=== PATIENT | female | born 1970 | race Hispanic/Latino ===

== ENCOUNTER 2018-03-07 22:46 | Emergency (ER) | payer SELFPAY ==
[2018-03-07] MEDS ORDERED: ONDANSETRON 4 MG/2 ML VIAL ONE (23:18)
[2018-03-07] MEDS ORDERED: NA CHLORIDE 0.9% 1,000 ML ONE (23:18)
[2018-03-07 23:35] LABS: Absolute Lymphocytes (CBC) 1.7 K/uL (0.7-4.9); Absolute Monocytes 0.7 K/uL (0.1-1.3); Absolute Neutrophil 5.7 K/uL (1.8-8.0); Eosinophils % 1.6 % (0-4.4); Hematocrit 38.7 % (36.0-45.0); Lymphocytes % 19.9 % (15.3-44.8); MCH 28.5 pg (27.0-35.0); MCV 84.4 fL (80-100); MPV 9.6 fL (7.6-11.3); Monocytes % 8.9 % (3.3-12.3); RBC Red Blood Cell Count 4.58 M/uL (3.86-4.86)
[2018-03-07 23:38] LABS: Protime INR 0.97
[2018-03-07 23:39] LABS: Bicarbonate 25 mEq/L (21-31); Glucose Level 140 mg/dL (65-120); Potassium 3.5 mEq/L (3.6-5.0); Sodium Level 136 mEq/L (135-145)
[2018-03-07 23:46] LABS: ALT/SGPT 21 IU/L (10-60); AST/SGOT 17 IU/L (10-42); Albumin 3.8 g/dL (3.2-5.5); Alkaline Phosphatase 65 IU/L (42-121); BUN Blood Urea Nitrogen 13 mg/dL (6-20); Bilirubin Direct < 0.1 mg/dL (0-0.2); Bilirubin Total 0.2 mg/dL (0.3-1.2); Protein, Total 7.3 g/dL (6.0-8.3)
[2018-03-08] MEDS ORDERED: ASPIRIN 81 MG CHEWABLE TABLET ONE (00:16)
--- NOTE | 2018-03-08 00:25 | EDPHYS ---
Physician Documentation [facility] Name: Juju Orozco Age: 47 yrs Sex: Female : 1970 Arrival Date: 03/07/2018 Time: 22:47 Bed 14 Private MD: Sergio Cameron ED Physician Fredy Castro HPI: 03/07 23:02 This 47 yrs old Female presents to ER via Ambulatory with complaints of cp Nausea, High Blood Pressure. 23:02 The patient presents to the emergency department with nausea, that is moderate. Onset: cp The symptoms/episode began/occurred today. Possible causes: elevated blood pressure. Associated signs and symptoms: Pertinent positives: pressure in back of head. Severity of symptoms: in the emergency department the symptoms have improved mildly. 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 - Social history:: Smoking status: Patient/guardian denies using tobacco. - Ebola Screening: : No symptoms or risks identified at this time. ROS: 23:05 Constitutional: Negative for body aches, chills, fever, poor PO intake. cp 23:05 Eyes: Negative for injury, pain, redness, and discharge. cp 23:05 Eyes: Negative for pain, redness, visual disturbance. cp 23:05 ENT: Negative for drainage from ear(s), ear pain, sore throat, difficulty swallowing, cp difficulty handling secretions. 23:05 Cardiovascular: Negative for chest pain, edema, palpitations. 23:05 Respiratory: Negative for cough, shortness of breath, wheezing. 23:05 Abdomen/GI: Negative for abdominal pain, nausea, vomiting, and diarrhea. 23:05 Back: Negative for pain at rest, pain with movement, radiated pain. 23:05 : Negative for urinary symptoms. 23:05 Neuro: Positive for dizziness, headache, Negative for altered mental status, syncope, near syncope, weakness. 23:05 All other systems are negative. Exam: 23:10 Constitutional: The patient appears in no acute distress, alert, non-diaphoretic, cp non-toxic, well developed, well nourished. 23:10 Head/Face: Normocephalic, atraumatic. Eyes: Pupils equal round and reactive to light, cp extra-ocular motions intact. Lids and lashes normal. Conjunctiva and sclera are non-icteric and not injected. Cornea within normal limits. Periorbital areas with no swelling, redness, or edema. ENT: Nares patent. No nasal discharge, no septal abnormalities noted. Tympanic membranes are normal and external auditory canals are clear. Oropharynx with no redness, swelling, or masses, exudates, or evidence of obstruction, uvula midline. Mucous membranes moist. Neck: Trachea midline, no thyromegaly or masses palpated, and no cervical lymphadenopathy. Supple, full range of motion without nuchal rigidity, or vertebral point tenderness. No Meningismus. Chest/axilla: Normal chest wall appearance and motion. Nontender with no deformity. No lesions are appreciated. 23:10 Cardiovascular: Rate: normal, Rhythm: regular, Pulses: Pulses are 2+ in right radial artery and left radial artery. Heart sounds: murmur, not appreciated, rub, not appreciated, gallop, not appreciated, Edema: is not appreciated, JVD: is not appreciated. 23:10 Respiratory: the patient does not display signs of respiratory distress, Respirations: normal, no use of accessory muscles, no retractions, no splinting, no tachypnea, labored breathing, is not present, Breath sounds: are clear throughout, no decreased breath sounds, no stridor, no wheezing. 23:10 Abdomen/GI: Inspection: abdomen appears normal, Bowel sounds: active, all quadrants, Palpation: abdomen is soft and non-tender, in all quadrants, rebound tenderness, is not appreciated, voluntary guarding, is not appreciated, involuntary guarding, is not appreciated. 23:10 Back: pain, is absent, ROM is normal. 23:10 Musculoskeletal/extremity: Exam is negative for bony tenderness, calf tenderness, edema, injury. 23:10 Skin: cellulitis, is not appreciated, no rash present. 23:10 Neuro: Orientation: to person, place \T\ time. Mentation: lucid, able to follow commands, Cerebellar function: Romberg testing is negative, normal finger to nose testing, Motor: moves all fours, strength is normal, Sensation: is normal. Vital Signs: 22:53 BP 181 / 89; Pulse 86; Resp 20; Temp 98.7(O); Pulse Ox 100% ; Weight 106.59 kg (R); ak1 Height 5 ft. 5 in. (165.10 cm) (R); Pain 0/10; 22:59 BP 176 / 93; bs1 23:15 BP 152 / 98; Pulse 73; Resp 14; Pulse Ox 99% on R/A; bs1 03/08 00:15 BP 146 / 86; Pulse 69; Resp 16 S; Temp 97.9(O); Pulse Ox 99% on R/A; Pain 0/10; bs1 00:39 BP 125 / 70; Pulse 66; Resp 18 S; Pulse Ox 99% on R/A; Pain 0/10; bs1 03/07 22:53 Body Mass Index 39.11 (106.59 kg, 165.10 cm) ak1 MDM: 03/07 22:50 Patient medically screened. cp 03/08 00:00 Differential diagnosis: CVA, migraine, vertigo, electrolyte abnormality. cp 00:22 Data reviewed: vital signs, nurses notes, lab test result(s), radiologic studies, CT cp scan, and as a result, I will discharge patient. Counseling: I had a detailed discussion with the patient and/or guardian regarding: the historical points, exam findings, and any diagnostic results supporting the discharge/admit diagnosis, the presence of at least one elevated blood pressure reading (>120/80) during this emergency department visit, lab results, radiology results, the need for outpatient follow up, a family practitioner, to return to the emergency department if symptoms worsen or persist or if there are any questions or concerns that arise at home. Response to treatment: the patient's symptoms have markedly improved after treatment, VSS. Patient reports nausea and headache markedly improved. Will discharge to home for continued monitoring. 03/07 23:04 Order name: Basic Metabolic Panel; Complete Time: 23:47 cp 03/07 23:47 Interpretation: Normal except: K 3.5; GLUC 140; GFR 63. cp 03/07 23:04 Order name: CBC with Diff; Complete Time: 23:47 cp /18 23:04 Order name: LFT's; Complete Time: 23:47 cp 03/07 23:04 Order name: PT-INR; Complete Time: 23:47 cp 03/07 23:04 Order name: Ptt, Activated; Complete Time: 23:47 cp 03/07 23:49 Order name: Urine Dipstick--Ancillary (enter results); Complete Time: 00:28 [facility] 03/08 00:28 Interpretation: Normal except: UBLD 1+. cp /18 23:04 Order name: CT Head Brain wo Cont cp / 23:04 Order name: Urine Test (obtain specimen); Complete Time: 23:48 cp 03/07 23:04 Order name: Cardiac monitoring; Complete Time: 23:49 cp 03/07 23:04 Order name: IV Saline Lock; Complete Time: 23:49 cp 03/07 23:49 Order name: Urine --Ancillary (enter results); Complete Time: 00:28 [facility] 03/08 00:28 Interpretation: Reviewed. cp 03/07 23:04 Order name: Labs collected and sent; Complete Time: 23:49 cp 03/07 23:04 Order name: O2 Per Protocol; Complete Time: 23:49 cp 03/07 23:04 Order name: O2 Sat Monitoring; Complete Time: 23:49 cp 03/07 23:04 Order name: Urine Dipstick-Ancillary (obtain specimen); Complete Time: 23:49 cp 03/08 00:11 Order name: PO challenge; Complete Time: 00:18 cp Administered Medications: 03/07 23:47 Drug: NS 0.9% 1000 ml Route: IV; Rate: 1 bolus; Site: right antecubital; bs1 03/08 00:41 Follow up: IV Status: Completed infusion bs1 03/07 23:47 Drug: Zofran 4 mg Route: IVP; Site: right antecubital; bs1 03/08 00:41 Follow up: Response: No adverse reaction bs1 00:18 Not Given (Patient took 2 baby aspirins at 2100 last night. Informed PA, verbal order bs1 not to give): Aspirin Chewable Tablet 81 mg PO once Disposition: 03/08/18 00:24 Discharged to Home. Impression: Hypertensive heart disease, Headache. - Condition is Stable. - Discharge Instructions: General Headache Without Cause, Hypertension, How to Take Your Blood Pressure, Dann-os-Gfsz, Managing Your High Blood Pressure. - Medication Reconciliation Form, Thank You Letter, Antibiotic Education, Prescription Opioid Use form. - Follow up: Sergio Cameron MD; When: 1 - 2 days; Reason: Recheck today's complaints. - Problem is an acute exacerbation. - Symptoms have improved. Addendum: 03/09/2018 07:58 Co-signature as Attending Physician, Fredy Castro MD Available for consultation at p s1 all times.. Signatures: Dispatcher [employer] EDMS Diane Lange RN RN ak1 Oni Mann PA PA cp Singer, Phillip, MD MD ps1 Haleigh Worthy RN RN bs1 Corrections: (The following items were deleted from the chart) 03/08 00:42 00:24 03/08/2018 00:24 Discharged to Home. Impression: Hypertensive heart disease; bs1 Headache. Condition is Stable. Forms are Medication Reconciliation Form, Thank You Letter, Antibiotic Education, Prescription Opioid Use. Follow up: Sergio Cameron; When: 1 - 2 days; Reason: Recheck today's complaints. Problem is an acute exacerbation. Symptoms have improved. cp
--- NOTE | 2018-03-08 00:25 | ER ---
Nurse's Notes [facility] Name: Juju Orozco Age: 47 yrs Sex: Female : 1970 Arrival Date: 03/07/2018 Time: 22:47 Bed 14 Private MD: Sergio Cameron Diagnosis: Hypertensive heart disease;Headache Presentation: 03/07 22:54 Presenting complaint: Patient states: nausea and increased blood pressure X1 hours. pt ak1 took 0.1mg clondine at 2200. Transition of care: patient was not received from another setting of care. Onset of symptoms was March 07, 2018. Risk Assessment: Do you want to hurt yourself or someone else? Patient reports no desire to harm self or others. Initial Sepsis Screen: Does the patient meet any 2 criteria? No. Patient's initial sepsis screen is negative. Does the patient have a suspected source of infection? No. Patient's initial sepsis screen is negative. Care prior to arrival: None. 22:54 Method Of Arrival: Ambulatory ak1 22:54 Acuity: TARIK 3 ak1 Triage Assessment: 22:56 General: Appears uncomfortable, Behavior is calm, cooperative. Pain: Denies pain. 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 - Social history:: Smoking status: Patient/guardian denies using tobacco. - Ebola Screening: : No symptoms or risks identified at this time. Screenin:56 Abuse screen: Denies threats or abuse. Denies injuries from another. Nutritional ak1 screening: No deficits noted. Tuberculosis screening: No symptoms or risk factors identified. Fall Risk None identified. Assessment: 23:00 General: Appears in no apparent distress. uncomfortable, Behavior is calm, cooperative, bs1 appropriate for age. Pain: Denies pain. Neuro: Level of Consciousness is awake, alert, obeys commands, Oriented to person, place, time, situation, Appropriate for age Microcomputer Technician are equal bilaterally Reports dizziness, headache weakness Denies blurred vision difficulty swallowing, numbness. Cardiovascular: Denies chest pain, palpitations, shortness of breath, Heart tones S1 S2 present Capillary refill < 3 seconds Patient's skin is warm and dry. Respiratory: Airway is patent Trachea midline Respiratory effort is even, unlabored, Respiratory pattern is regular, symmetrical, Breath sounds are clear bilaterally. GI: Abdomen is round non-distended, Bowel sounds present X 4 quads. Abd is non tender X 4 quads Reports nausea. : No signs and/or symptoms were reported regarding the genitourinary system. EENT: No signs and/or symptoms were reported regarding the EENT system. Derm: Skin is intact, Skin is pink, warm \T\ dry. normal. Musculoskeletal: Circulation, motion, and sensation intact. Capillary refill < 3 seconds, Range of motion: intact in all extremities. 03/08 00:18 Reassessment: Gave patient 1 cup water. PO challenge tolerated. bs1 00:40 Reassessment: Patient appears in no apparent distress at this time. Patient and/or bs1 family updated on plan of care and expected duration. Pain level reassessed. Patient is alert, oriented x 3, equal unlabored respirations, skin warm/dry/pink. Patient states feeling better. Patient states symptoms have improved. Vital Signs: 03/07 22:53 BP 181 / 89; Pulse 86; Resp 20; Temp 98.7(O); Pulse Ox 100% ; Weight 106.59 kg (R); ak1 Height 5 ft. 5 in. (165.10 cm) (R); Pain 0/10; 22:59 BP 176 / 93; bs1 23:15 BP 152 / 98; Pulse 73; Resp 14; Pulse Ox 99% on R/A; bs1 03/08 00:15 BP 146 / 86; Pulse 69; Resp 16 S; Temp 97.9(O); Pulse Ox 99% on R/A; Pain 0/10; bs1 00:39 BP 125 / 70; Pulse 66; Resp 18 S; Pulse Ox 99% on R/A; Pain 0/10; bs1 03/07 22:53 Body Mass Index 39.11 (106.59 kg, 165.10 cm) ak1 ED Course: 03/07 22:47 Patient arrived in ED. am2 22:47 Sergio Cameron MD is Private Physician. am2 22:48 Haleigh Worthy RN is Primary Nurse. bs1 22:50 Oni Mann PA is PHCP. cp 22:50 Fredy Castro MD is Attending Physician. cp 22:55 Triage completed. ak1 22:56 Arm band placed on Patient placed in an exam room, on a stretcher, on pulse oximetry, ak1 Patient notified of wait time. 22:56 Patient has correct armband on for positive identification. Bed in low position. Call ak1 light in reach. Side rails up X 1. Pulse ox on. NIBP on. 23:02 Inserted saline lock: 20 gauge in right antecubital area, using aseptic technique. bs1 Blood collected. 23:40 CT Head Brain wo Cont In Process Unspecified. EDMS 03/08 00:20 No provider procedures requiring assistance completed. bs1 00:24 Sergio Cameron MD is Referral Physician. cp 00:41 IV discontinued, bleeding controlled, No redness/swelling at site. Pressure dressing bs1 applied. Administered Medications: 03/07 23:47 Drug: NS 0.9% 1000 ml Route: IV; Rate: 1 bolus; Site: right antecubital; bs1 03/08 00:41 Follow up: IV Status: Completed infusion bs1 03/07 23:47 Drug: Zofran 4 mg Route: IVP; Site: right antecubital; bs1 03/08 00:41 Follow up: Response: No adverse reaction bs1 00:18 Not Given (Patient took 2 baby aspirins at 2100 last night. Informed PA, verbal order bs1 not to give): Aspirin Chewable Tablet 81 mg PO once Outcome: 00:24 Discharge ordered by MD. cp 00:40 Discharged to home ambulatory. bs1 00:40 Condition: stable 00:40 Discharge instructions given to patient, Instructed on discharge instructions, follow up and referral plans. Demonstrated understanding of instructions, follow-up care. 00:42 Patient left the ED. bs1 Signatures: Dispatcher [employer] EDMS Diane Lange RN RN ak1 Oni Mann PA PA cp Inés Burris am2 Worthy, Haleigh, RN RN bs1
[2018-03-08 00:26] LABS: Urine Blood 1+ (NEG); Urine Glucose NEGATIVE (NEG); Urine Protein NEGATIVE (NEG); Urine pH 5.5 (5.0-7.0)
[2018-03-08 01:23] VITALS: O2SAT 99
[2018-03-08 01:25] VITALS: TEMP 97.9
[2018-03-08 01:26] VITALS: BP 125/70
--- NOTE | 2018-03-08 08:22 | RAD REPORT ---
EXAM DESCRIPTION: CT - Head Brain Wo Cont - 03/08/2018 5:24 am CLINICAL HISTORY: Hypertension, posterior headache, nausea A preliminary written report was provided at the time of the study, and the report was reviewed prio r to final dictation. COMPARISON: None. TECHNIQUE: Axial 5 mm thick images of the head were obtained without IV contrast. All CT scans are performed using dose optimization technique as appropriate and may include automated exposure control or mA/KV adjustment according to patient size. FINDINGS: No intracranial hemorrhage, mass, edema or shift of mid-line structures. No acute infarcti on changes seen. No abnormal extra-axial fluid collections. Ventricles are normal. Mastoid air cells and visualized portions of the paranasal sinuses are clear. No acute bony findings. IMPRESSION: Negative non-contrast CT head examination.
== END 2018-03-08 00:42 | disposition home or self-care (01) ==
LOC: ER 22:46
DX: I11.9 Hypertensive heart disease without heart failure (principal); R51 Headache; I10 Essential (primary) hypertension; E03.9 Hypothyroidism, unspecified; F41.9 Anxiety disorder, unspecified
CPT/HCPCS: 36415; 70450; 80048; 80076; 81003; 81025; 85025; 85610; 85730; 96361; 96374; 99284; J2405; J7030

== ENCOUNTER 2019-04-12 10:43 | Emergency (ER) | payer BC, SELFPAY ==
[2019-04-12 11:33] LABS: Absolute Lymphocytes (CBC) 1.1 K/uL (0.7-4.9); Basophils % 0.4 % (0-1.3); Hematocrit 37.9 % (36.0-45.0); Lymphocytes % 8.5 % (15.3-44.8); MPV 9.8 fL (7.6-11.3); RBC Red Blood Cell Count 4.28 M/uL (3.86-4.86)
[2019-04-12 11:42] LABS: Protime INR 1.1
[2019-04-12 11:53] LABS: ALT/SGPT 18 U/L (12-78); AST/SGOT 9 U/L (15-37); Albumin 3.5 g/dL (3.4-5.0); Alkaline Phosphatase 61 U/L (45-117); BUN Blood Urea Nitrogen 8 mg/dL (7-18); Bicarbonate 28 mmol/L (21-32); Bilirubin Direct 0.1 mg/dL (0-0.2); Bilirubin Total 0.5 mg/dL (0.2-1.0); Glucose Level 95 mg/dL (74-106); Lipase 35 U/L (73-393); Magnesium 1.8 mg/dL (1.8-2.4); NT PRO-BNP 120 pg/mL (<125); Potassium 3.7 mmol/L (3.5-5.1); Protein, Total 7.3 g/dL (6.4-8.2); Sodium Level 140 mmol/L (136-145); Troponin (Emerg Dept Use Only) < 0.02 ng/mL (0.0-0.045)
[2019-04-12 12:20] LABS: Blood Morphology Comment NOT SEEN (NOT SEEN); Platelet Estimate ADEQ; Urine White Blood Cell Casts OK
--- NOTE | 2019-04-12 12:27 | RAD REPORT ---
EXAM DESCRIPTION: RAD - Chest Pa And Lat (2 Views) - 04/12/2019 11:59 am CLINICAL HISTORY: CHEST PAIN Chest pain. COMPARISON: Chest Single View dated 05/28/2017; CHEST SINGLE VIEW dated 04/28/2014; CHEST SINGLE VIEW da mirian 03/07/2012; CHEST SINGLE VIEW dated 04/29/2011 FINDINGS: The lungs are clear. The heart is normal in size. No displaced fractures. IMPRESSION: No acute or concerning finding suspected.
--- NOTE | 2019-04-12 13:16 | ER ---
Nurse's Notes [facility] Name: Juju Orozco Age: 48 yrs Sex: Female : 1970 Arrival Date: 04/12/2019 Time: 10:49 Bed 20 Private MD: Sergio Cameron Diagnosis: Cough;Vomiting;Chest pain, unspecified Presentation: 04/12 10:57 Presenting complaint: Patient states: yesterday i started with the coughing then this tw2 morning i have congestion, chills, i feel lightheaded and i have body aches, nausea, vomiting and vomited black tarry stuff. Transition of care: patient was not received from another setting of care. Onset of symptoms was April 12, 2019. Risk Assessment: Do you want to hurt yourself or someone else? Patient reports no desire to harm self or others. Initial Sepsis Screen: Does the patient meet any 2 criteria? No. Patient's initial sepsis screen is negative. Does the patient have a suspected source of infection? No. Patient's initial sepsis screen is negative. Care prior to arrival: None. 10:57 Method Of Arrival: Ambulatory tw2 10:57 Acuity: TARIK 3 tw2 Triage Assessment: 10:59 General: Appears in no apparent distress. Behavior is calm, cooperative, appropriate tw2 for age. Pain: Complains of pain in chest "from cough". GI: Reports nausea, vomiting. 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 tw2 Historical: - Allergies: 11:00 Latex, Natural Rubber; tw2 - Home Meds: 11:00 lisinopril 40 mg oral tab 1 tab once daily for Hypertension [Active]; alprazolam 1 mg tw2 Oral tab 1 tab nightly [Active]; levothyroxine oral [Active]; clonidine HCl 0.1 mg Oral tab [Active]; - PMHx: 11:00 Anxiety; Hypertension; Hypothyroidism; Migraines; tw2 - PSHx: 11:00 ; tw2 - Immunization history:: Adult Immunizations. - Social history:: Smoking status: . - Ebola Screening: : Patient denies travel to an Ebola-affected area in the 21 days before illness onset. Screenin:01 Abuse screen: Denies threats or abuse. Nutritional screening: No deficits noted. tw2 Tuberculosis screening: No symptoms or risk factors identified. Fall Risk None identified. Assessment: 10:55 General: Appears in no apparent distress. well groomed, Behavior is calm, cooperative, tw2 appropriate for age. Pain: Complains of pain in chest and body aches. Neuro: Level of Consciousness is awake, alert, obeys commands, Oriented to person, place, time, situation. Cardiovascular: Heart tones S1 S2 Patient's skin is warm and dry. Respiratory: Reports shortness of breath Airway is patent Respiratory effort is even, unlabored, Respiratory pattern is regular, symmetrical, Breath sounds are clear bilaterally. GI: Abdomen is round non-distended, Bowel sounds present X 4 quads. Reports nausea, "black tarry stuff in my vomit". : No signs and/or symptoms were reported regarding the genitourinary system. EENT: Reports nasal congestion nasal discharge. Derm: No signs and/or symptoms reported regarding the dermatologic system. Musculoskeletal: Range of motion: intact in all extremities. 12:00 Reassessment: Patient appears in no apparent distress at this time. No changes from tw2 previously documented assessment. Patient and/or family updated on plan of care and expected duration. Pain level reassessed. Patient is alert, oriented x 3, equal unlabored respirations, skin warm/dry/pink. 13:18 Reassessment: Patient appears in no apparent distress at this time. No changes from tw2 previously documented assessment. Patient and/or family updated on plan of care and expected duration. Pain level reassessed. Patient is alert, oriented x 3, equal unlabored respirations, skin warm/dry/pink. Vital Signs: 10:58 BP 143 / 76; Pulse 73; Resp 18; Temp 98.6(TE); Pulse Ox 99% on R/A; Weight 92.08 kg tw2 (R); Height 5 ft. 5 in. (165.10 cm); Pain 6/10; 12:00 BP 123 / 73; Pulse 68; Resp 17; Pulse Ox 100% on R/A; tw2 13:02 BP 122 / 73; Pulse 76; Resp 18; Pulse Ox 100% on R/A; ms 10:58 Body Mass Index 33.78 (92.08 kg, 165.10 cm) tw2 ED Course: 10:49 Patient arrived in ED. mr 10:50 Sergio Cameron MD is Private Physician. mr 10:53 Placed in gown. Bed in low position. Call light in reach. monitoring analyst on. Pulse ox tw2 on. NIBP on. 10:54 David Malik PA is PHCP. jr8 10:54 Chema Beyer MD is Attending Physician. jr8 10:57 Raquel Esteban, RN is Primary Nurse. tw2 10:58 Triage completed. tw2 10:58 Arm band placed on. EKG completed in triage. Results shown to MD. tw2 11:20 Initial lab(s) drawn, by me, sent to lab. Inserted saline lock: 20 gauge in right ms antecubital area, using aseptic technique. Blood collected. 11:56 Patient moved to radiology via wheelchair. jb2 11:57 X-ray completed. Patient tolerated procedure well. Patient moved back from radiology. jb2 11:58 Chest Pa And Lat (2 Views) XRAY In Process Unspecified. EDMS 13:15 Sergio Cameron MD is Referral Physician. jr8 13:39 No provider procedures requiring assistance completed. IV discontinued, intact, tw2 bleeding controlled, No redness/swelling at site. Pressure dressing applied. Administered Medications: No medications were administered Outcome: 13:16 Discharge ordered by MD. jr8 13:39 Discharged to home ambulatory, with family. tw2 13:39 Condition: stable 13:39 Discharge instructions given to patient, family, Instructed on discharge instructions, follow up and referral plans. Demonstrated understanding of instructions, follow-up care. 13:40 Patient left the ED. tw2 Signatures: Dispatcher [employer] EDNM Shannan Schafer mr MaciasJeremias jb2 Samia Arambula ms David Malik PA PA jr8 Raquel Esteban, RN RN tw2
[2019-04-12 13:17] LABS: Urine Blood 1+ (NEG); Urine Glucose NEGATIVE (NEG); Urine Protein NEGATIVE (NEG); Urine Specific Gravity 1.015 (1.005-1.030)
--- NOTE | 2019-04-12 13:17 | EDPHYS ---
Physician Documentation [facility] Name: Juju Orozco Age: 48 yrs Sex: Female : 1970 Arrival Date: 04/12/2019 Time: 10:49 Bed 20 Private MD: Sergio Cameron ED Physician Chema Beyer HPI: 04/12 11:23 This 48 yrs old Female presents to ER via Ambulatory with complaints of jr8 Vomiting, Congestion, Chest Pain. 11:23 The patient presents to the emergency department with nausea, vomiting. jr8 11:25 Onset: The symptoms/episode began/occurred acutely, this morning. Possible causes: jr8 unknown. The patient or guardian reports cough, described as moderate. Onset: The symptoms/episode began/occurred acutely, yesterday. Severity of symptoms: At their worst the symptoms were moderate, in the emergency department the symptoms are unchanged. Associated signs and symptoms: Pertinent positives: nausea, vomiting, chills, chest pain, body aches, Pertinent negatives: abdominal pain, constipation, diarrhea, dysuria. Severity of symptoms: At their worst the symptoms were moderate in the emergency department the symptoms have improved. The patient has not recently seen a physician. Reports cough since yesterday. Reports awakening this morning with vomiting, chills, body aches, and chest pain. Reports 7 episodes of vomiting, 1 episode containing a small amount of "black flake like shavings". . 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 tw2 Historical: - Allergies: 11:00 Latex, Natural Rubber; tw2 - Home Meds: 11:00 lisinopril 40 mg oral tab 1 tab once daily for Hypertension [Active]; alprazolam 1 mg tw2 Oral tab 1 tab nightly [Active]; levothyroxine oral [Active]; clonidine HCl 0.1 mg Oral tab [Active]; - PMHx: 11:00 Anxiety; Hypertension; Hypothyroidism; Migraines; tw2 - PSHx: 11:00 ; tw2 - Immunization history:: Adult Immunizations. - Social history:: Smoking status: . - Ebola Screening: : Patient denies travel to an Ebola-affected area in the 21 days before illness onset. ROS: 12:25 Eyes: Negative for injury, pain, redness, and discharge. jr8 12:25 Neck: Negative for injury, pain, and swelling. 12:25 Back: Negative for injury and pain. 12:25 MS/Extremity: Negative for injury and deformity, Skin: Negative for injury, rash, and discoloration, Neuro: Negative for headache, weakness, numbness, tingling, and seizure. 12:25 Constitutional: Positive for body aches, chills, Negative for fever. 12:25 ENT: Positive for sinus congestion, Negative for ear pain, hearing loss, sore throat. 12:25 Cardiovascular: Positive for chest pain, worse with cough, Negative for edema, palpitations. 12:25 Respiratory: Positive for cough, Negative for hemoptysis, orthopnea, shortness of breath. 12:25 Abdomen/GI: Positive for nausea, vomiting, Negative for abdominal pain, diarrhea, constipation, black/tarry stool, rectal bleeding. 12:25 : Negative for urinary symptoms. 12:25 MS/extremity: Negative for injury or acute deformity. Exam: 12:25 Constitutional: This is a well developed, well nourished patient who is awake, alert, jr8 and in no acute distress. Head/Face: Normocephalic, atraumatic. Eyes: Pupils equal round and reactive to light, extra-ocular motions intact. Lids and lashes normal. Conjunctiva and sclera are non-icteric and not injected. Cornea within normal limits. Periorbital areas with no swelling, redness, or edema. Chest/axilla: Normal chest wall appearance and motion. Nontender with no deformity. No lesions are appreciated. Cardiovascular: Regular rate and rhythm with a normal S1 and S2. No gallops, murmurs, or rubs. Normal PMI, no JVD. No pulse deficits. Respiratory: Lungs have equal breath sounds bilaterally, clear to auscultation and percussion. No rales, rhonchi or wheezes noted. No increased work of breathing, no retractions or nasal flaring. Abdomen/GI: Soft, non-tender, with normal bowel sounds. No distension or tympany. No guarding or rebound. No evidence of tenderness throughout. Skin: Warm, dry with normal turgor. Normal color with no rashes, no lesions, and no evidence of cellulitis. MS/ Extremity: Pulses equal, no cyanosis. Neurovascular intact. Full, normal range of motion. Neuro: Awake and alert, GCS 15, oriented to person, place, time, and situation. Cranial nerves II-XII grossly intact. Motor strength 5/5 in all extremities. Sensory grossly intact. Cerebellar exam normal. Normal gait. 12:25 ENT: External ear(s): are unremarkable, Ear canal(s): are normal, TM's: are normal, no dullness, no erythema, Nose: is normal, Posterior pharynx: is normal, no erythema. Vital Signs: 10:58 BP 143 / 76; Pulse 73; Resp 18; Temp 98.6(TE); Pulse Ox 99% on R/A; Weight 92.08 kg tw2 (R); Height 5 ft. 5 in. (165.10 cm); Pain 6/10; 12:00 BP 123 / 73; Pulse 68; Resp 17; Pulse Ox 100% on R/A; tw2 13:02 BP 122 / 73; Pulse 76; Resp 18; Pulse Ox 100% on R/A; ms 10:58 Body Mass Index 33.78 (92.08 kg, 165.10 cm) tw2 MDM: 10:54 Patient medically screened. [facility] 13:16 Data reviewed: vital signs, nurses notes, lab test result(s), EKG, radiologic studies, jr8 plain films. Data interpreted: Pulse oximetry: on room air is 100 %. Interpretation: normal. Counseling: I had a detailed discussion with the patient and/or guardian regarding: the historical points, exam findings, and any diagnostic results supporting the discharge/admit diagnosis, lab results, radiology results, the need for outpatient follow up, a family practitioner, to return to the emergency department if symptoms worsen or persist or if there are any questions or concerns that arise at home. 13:17 ED course: Discussed with patient that there are no acute process with heart, lungs, jr8 kidneys or urine. VS stable. Cardiac enzymes normal along ECG. Rest of abdominal labs and blood work without concerning finding. Exam unremarkable. Could be a little viral process. Recommend symptomatic treatment at this time and to f/u with Dr. Cameron. If worse to come back . 04/12 11:18 Order name: Basic Metabolic Panel [facility] 04/12 11:18 Order name: CBC with Diff; Complete Time: 12:30 [facility] 04/12 11:18 Order name: LFT's; Complete Time: 12:06 04/12 11:18 Order name: Magnesium; Complete Time: 12:04/12 11:18 Order name: NT PRO-BNP; Complete Time: 12:04/12 11:18 Order name: PT-INR; Complete Time: 12:06 04/12 11:18 Order name: Troponin (emerg Dept Use Only); Complete Time: 12:04/12 11:18 Order name: EKG; Complete Time: 11:21 04/12 11:18 Order name: Cardiac monitoring; Complete Time: 11:19 04/12 11:18 Order name: Chest Pa And Lat (2 Views) XRAY; Complete Time: 12:30 04/12 11:18 Order name: Lipase; Complete Time: 12:04/12 11:19 Order name: Basic Metabolic Panel; Complete Time: 12:06 EDMS 04/12 12:22 Order name: CBC Smear Scan; Complete Time: 12:30 EDME 04/12 13:04 Order name: Urine Dipstick--Ancillary (enter results); Complete Time: 13:22 04/12 11:18 Order name: EKG - Nurse/Tech; Complete Time: 11: 04/12 11:18 Order name: IV Saline Lock; Complete Time: :04/12 11:18 Order name: Labs collected and sent; Complete Time: 11: 04/12 11:18 Order name: O2 Per Protocol; Complete Time: : 04/12 11:18 Order name: O2 Sat Monitoring; Complete Time: : 04/12 11:18 Order name: Urine Dipstick-Ancillary (obtain specimen); Complete Time: 13:05 jr8 EC:28 Rate is 78 beats/min. Rhythm is regular. QRS [place] is Normal. [place] interval is normal at jr8 112 msec. QRS interval is normal at 80 msec. QT interval is prolonged at 465 msec. No Q waves. T waves are Normal. No ST changes noted. Clinical impression: Normal ECG. Interpreted by me. Reviewed by me. Administered Medications: No medications were administered Disposition: : Co-signature as Attending Physician, Chema Beyer MD. rn Disposition: 04/12/19 13:16 Discharged to Home. Impression: Cough, Vomiting, Chest pain, unspecified. - Condition is Stable. - Discharge Instructions: Nonspecific Chest Pain, Cough, Adult. - Prescriptions for Zofran 4 mg Oral Tablet - take 1 tablet by ORAL route every 12 hours As needed; 20 tablet. - Medication Reconciliation Form, Thank You Letter, Antibiotic Education, Prescription Opioid Use, Work release form form. - Follow up: Sergio Cameron MD; When: 1 - 2 days; Reason: Recheck today's complaints, Continuance of care, Re-evaluation by your physician. - Problem is new. - Symptoms have improved. Signatures: Dispatcher [employer] EDMS Chema Beyer MD MD rn Roszak, Josh, PA PA jr8 Raquel Esteban RN RN tw2 Corrections: (The following items were deleted from the chart) 11:32 11:23 The patient presents to the emergency department with nausea, vomiting, jr8 jr8 13:40 13:16 04/12/2019 13:16 Discharged to Home. Impression: Cough; Vomiting; Chest pain, tw2 unspecified. Condition is Stable. Forms are Medication Reconciliation Form, Thank You Letter, Antibiotic Education, Prescription Opioid Use. Follow up: Sergio Cameron; When: 1 - 2 days; Reason: Recheck today's complaints, Continuance of care, Re-evaluation by your physician. Problem is new. Symptoms have improved. jr8
[2019-04-12 13:56] VITALS: O2SAT 100
[2019-04-12 13:57] VITALS: TEMP 98.6
[2019-04-12 13:58] VITALS: BP 122/73
--- NOTE | 2019-04-12 15:49 | EKG ---
Test Date: 2019-04-12 Test Time: 11:02:26 Residential Tech: SAMANTHA MEASUREMENT RESULTS: Intervals: Rate: 78 KS: 112 QRSD: 80 QT: 408 QTc: 465 [place]: P: 21 KS: 112 QRS: 12 T: 7 INTERPRETIVE STATEMENTS: Normal sinus rhythm with sinus arrhythmia Prolonged QT Abnormal ECG Compared to ECG 05/28/2017 01:08:34 Prolonged QT interval now present ST (T wave) deviation no longer present Electronically Signed On 04-12-19 15:48:48 CDT by Jaison Mckinney
== END 2019-04-12 13:40 | disposition home or self-care (01) ==
LOC: ER 10:43
DX: R11.2 Nausea with vomiting, unspecified (principal); R05 Cough; R07.9 Chest pain, unspecified; F41.9 Anxiety disorder, unspecified; I10 Essential (primary) hypertension; E03.9 Hypothyroidism, unspecified; Z91.040 Latex allergy status
CPT/HCPCS: 36415; 71046; 80048; 80076; 81003; 83690; 83735; 83880; 84484; 85025; 85610; 93005; 99284

== ENCOUNTER 2019-04-17 00:43 | Emergency (ER) | payer BC ==
[2019-04-17 01:26] LABS: Urine Bacteria >50 /HPF (<20); Urine Culture Reflex Order REFLEXED; Urine RBC 20-50 /HPF (NONE SEEN)
[2019-04-17 01:27] LABS: Urine Blood 3+ (NEG); Urine Glucose NEGATIVE (NEG); Urine Protein 2+ (NEG)
--- NOTE | 2019-04-17 01:47 | ER ---
Nurse's Notes [facility] Name: Juju Orozco Age: 48 yrs Sex: Female : 1970 Arrival Date: 04/17/2019 Time: 00:46 Bed 8 Private MD: Sergio Cameron Diagnosis: Urinary tract infection, site not specified Presentation: 04/17 00:57 Presenting complaint: Patient states: burning with urination, increased frequency, ak1 pressure in lower abd(bladder area) since 0. Transition of care: patient was not received from another setting of care. Onset of symptoms was April 17, 2019. Risk Assessment: Do you want to hurt yourself or someone else? Patient reports no desire to harm self or others. Initial Sepsis Screen: Does the patient meet any 2 criteria? No. Patient's initial sepsis screen is negative. Does the patient have a suspected source of infection? No. Patient's initial sepsis screen is negative. Care prior to arrival: None. 00:57 Method Of Arrival: Ambulatory ak1 00:57 Acuity: TARIK 4 ak1 Triage Assessment: 00:59 General: Appears in no apparent distress. uncomfortable, Behavior is calm, cooperative. ak1 Pain: Complains of pain in pelvis. EENT: No signs and/or symptoms were reported regarding the EENT system. Neuro: No deficits noted. Cardiovascular: No deficits noted. Respiratory: No deficits noted. GI: No signs and/or symptoms were reported involving the gastrointestinal system. : Reports burning with urination, since 0 urinary frequency. Derm: No signs and/or symptoms reported regarding the dermatologic system. Musculoskeletal: No signs and/or symptoms reported regarding the musculoskeletal system. 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 ak1 Historical: - Allergies: 00:59 Latex, Natural Rubber; ak1 - Home Meds: 00:59 alprazolam 1 mg Oral tab 1 tab nightly [Active]; clonidine HCl 0.1 mg Oral tab ak1 [Active]; levothyroxine oral [Active]; lisinopril 40 mg Oral tab 1 tab once daily for Hypertension [Active]; - PMHx: 00:59 Anxiety; Hypertension; Hypothyroidism; Migraines; ak1 - PSHx: 00:59 ; ak1 - Immunization history:: Adult Immunizations unknown. - Social history:: Smoking status: Patient/guardian denies using tobacco. - Ebola Screening: : No symptoms or risks identified at this time. Screenin:00 Abuse screen: Denies threats or abuse. Denies injuries from another. Nutritional ak1 screening: No deficits noted. Tuberculosis screening: No symptoms or risk factors identified. Fall Risk None identified. Assessment: 01:01 Reassessment: Patient appears in no apparent distress at this time. No changes from ak1 previously documented assessment. Patient and/or family updated on plan of care and expected duration. Pain level reassessed. Patient is alert, oriented x 3, equal unlabored respirations, skin warm/dry/pink. see triage assessment. 01:55 Reassessment: Patient and/or family updated on plan of care and expected duration. Pain ea level reassessed. Patient is alert, oriented x 3, equal unlabored respirations, skin warm/dry/pink. Discharge instruction given to patient, verbalized the understanding of instruction. Pt left ED ambulatory tolerating well. Vital Signs: 00:56 BP 151 / 86; Pulse 73; Resp 18; Temp 97.7(O); Pulse Ox 99% on R/A; Weight 92.08 kg (R); ak1 Height 5 ft. 5 in. (165.10 cm) (R); Pain 8/10; 01:35 BP 150 / 55; Pulse 68; Resp 18; Temp 98; Pulse Ox 98% ; ea 00:56 Body Mass Index 33.78 (92.08 kg, 165.10 cm) ak1 ED Course: 00:46 Patient arrived in ED. es 00:47 Sergio Cameron MD is Private Physician. es 00:52 Didier Holliday MD is Attending Physician. tw4 00:56 Diane Lange, QUOC is Primary Nurse. ak1 00:58 Triage completed. ak1 00:59 Arm band placed on Patient placed in an exam room, on a stretcher, on pulse oximetry, ak1 Patient notified of wait time. 01:00 Patient has correct armband on for positive identification. Bed in low position. Call ak1 light in reach. Side rails up X 1. Pulse ox on. NIBP on. 01:45 Sergio Cameron MD is Referral Physician. tw4 01:56 No provider procedures requiring assistance completed. Patient did not have IV access ea during this emergency room visit. Administered Medications: 01:55 Drug: Macrobid 100 mg Route: PO; ea :57 Follow up: Response: Medication administered at discharge. ea 01:55 Drug: Pyridium 100 mg Route: PO; ea :57 Follow up: Response: Medication administered at discharge. ea Outcome: 01:45 Discharge ordered by tw4 01:56 Discharged to home ambulatory. ea 01:56 Condition: stable 01:56 Discharge instructions given to patient, Instructed on discharge instructions, follow up and referral plans. medication usage, Demonstrated understanding of instructions, follow-up care, medications, Prescriptions given X 3. 01:56 Patient left the ED. ea Addendum: 04/20/2019 13:29 Addendum: Culture Results: Positive urine culture. No further action required. Bacteria s s sensitive to prescribed antibiotic. Signatures: Shanel Cowan Shelby, RN RN Diane Lange RN RN ak Lidia Bhagat RN RN ea Wadley, Terrence, MD MD tw4
--- NOTE | 2019-04-17 01:47 | EDPHYS ---
Physician Documentation [facility] Name: Juju Orozco Age: 48 yrs Sex: Female : 1970 Arrival Date: 04/17/2019 Time: 00:46 Bed 8 Private MD: Sergio Cameron ED Physician Didier Holliday HPI: 04/17 04:58 This 48 yrs old Female presents to ER via Ambulatory with complaints of tw4 possible UTI. 04:58 The patient presents with urinary symptoms, dysuria. Onset: The symptoms/episode tw4 began/occurred just prior to arrival, today. Modifying factors: The symptoms are alleviated by nothing, the symptoms are aggravated by nothing. Associated signs and symptoms: The patient has no apparent associated signs or symptoms. Severity of symptoms: At their worst the symptoms were moderate, in the emergency department the symptoms. The patient has not experienced similar symptoms in the past. 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 ak1 Historical: - Allergies: 00:59 Latex, Natural Rubber; ak1 - Home Meds: 00:59 alprazolam 1 mg Oral tab 1 tab nightly [Active]; clonidine HCl 0.1 mg Oral tab ak1 [Active]; levothyroxine oral [Active]; lisinopril 40 mg Oral tab 1 tab once daily for Hypertension [Active]; - PMHx: 00:59 Anxiety; Hypertension; Hypothyroidism; Migraines; ak1 - PSHx: 00:59 ; ak1 - Immunization history:: Adult Immunizations unknown. - Social history:: Smoking status: Patient/guardian denies using tobacco. - Ebola Screening: : No symptoms or risks identified at this time. ROS: 04:58 Positive for urinary symptoms, Negative for injury or acute deformity. tw4 04:58 Constitutional: Negative for fever, chills, and weight loss, Eyes: Negative for injury, pain, redness, and discharge, Cardiovascular: Negative for chest pain, palpitations, and edema, Respiratory: Negative for shortness of breath, cough, wheezing, and pleuritic chest pain, Abdomen/GI: Negative for abdominal pain, nausea, vomiting, diarrhea, and constipation, Back: Negative for injury and pain, MS/Extremity: Negative for injury and deformity, Skin: Negative for injury, rash, and discoloration. Exam: 04:58 Constitutional: This is a well developed, well nourished patient who is awake, alert, tw4 and in no acute distress. Head/Face: Normocephalic, atraumatic. Chest/axilla: Normal chest wall appearance and motion. Nontender with no deformity. No lesions are appreciated. Cardiovascular: Regular rate and rhythm with a normal S1 and S2. No gallops, murmurs, or rubs. Normal PMI, no JVD. No pulse deficits. Respiratory: Lungs have equal breath sounds bilaterally, clear to auscultation and percussion. No rales, rhonchi or wheezes noted. No increased work of breathing, no retractions or nasal flaring. Abdomen/GI: Soft, non-tender, with normal bowel sounds. No distension or tympany. No guarding or rebound. No evidence of tenderness throughout. Back: No spinal tenderness. No costovertebral tenderness. Full range of motion. MS/ Extremity: Pulses equal, no cyanosis. Neurovascular intact. Full, normal range of motion. Neuro: Awake and alert, GCS 15, oriented to person, place, time, and situation. Cranial nerves II-XII grossly intact. Motor strength 5/5 in all extremities. Sensory grossly intact. Cerebellar exam normal. Normal gait. Vital Signs: 00:56 BP 151 / 86; Pulse 73; Resp 18; Temp 97.7(O); Pulse Ox 99% on R/A; Weight 92.08 kg (R); ak1 Height 5 ft. 5 in. (165.10 cm) (R); Pain 8/10; 01:35 BP 150 / 55; Pulse 68; Resp 18; Temp 98; Pulse Ox 98% ; ea 00:56 Body Mass Index 33.78 (92.08 kg, 165.10 cm) ak1 MDM: 00:52 Patient medically screened. tw4 04:58 Differential diagnosis: uterine fibroids, urinary tract infection. Data reviewed: vital tw4 signs, nurses notes. Data interpreted: Pulse oximetry: Interpretation: normal. Counseling: I had a detailed discussion with the patient and/or guardian regarding: the historical points, exam findings, and any diagnostic results supporting the discharge/admit diagnosis. Special discussion: I discussed with the patient/guardian in detail that at this point there is no indication for admission to the hospital. It is understood, however, that if the symptoms persist or worsen the patient needs to return immediately for re-evaluation. 04/17 00:54 Order name: Urine Microscopic Only; Complete Time: 01:41 tw4 04/17 01:16 Order name: Urine Dipstick--Ancillary (enter results); Complete Time: 01:41 mw2 04/17 01:16 Order name: Urine --Ancillary (enter results); Complete Time: 01:41 mw2 04/17 01:28 Order name: Urine Culture [facility] 04/17 00:52 Order name: Urine Dipstick-Ancillary (obtain specimen); Complete Time: 01:03 tw4 Administered Medications: 01:55 Drug: Macrobid 100 mg Route: PO; ea 01:57 Follow up: Response: Medication administered at discharge. ea 01:55 Drug: Pyridium 100 mg Route: PO; ea 01:57 Follow up: Response: Medication administered at discharge. ea Disposition: 04/17/19 01:45 Discharged to Home. Impression: Urinary tract infection, site not specified. - Condition is Stable. - Discharge Instructions: Urinary Tract Infection, Adult. - Prescriptions for Pyridium 200 mg Oral Tablet - take 1 tablet by ORAL route every 8 hours for 3 days; 9 tablet. Zofran 4 mg Oral Tablet - take 1 tablet by ORAL route every 12 hours As needed; 20 tablet. Macrobid 100 mg Oral Capsule - take 1 capsule by ORAL route every 12 hours for 10 days; 20 capsule. - Medication Reconciliation Form, Thank You Letter, Antibiotic Education, Prescription Opioid Use form. - Follow up: Sergio Cameron MD; When: Upon discharge from the Emergency Department; Reason: If symptoms return, Recheck today's complaints, Continuance of care. - Problem is new. - Symptoms have improved. Signatures: Dispatcher [facility] Diane Lange RN RN ak1 Lidia Bhagat RN RN Didier Rodríguez MD MD tw4 Corrections: (The following items were deleted from the chart) 01:56 01:45 04/17/2019 01:45 Discharged to Home. Impression: Urinary tract infection, site ea not specified. Condition is Stable. Forms are Medication Reconciliation Form, Thank You Letter, Antibiotic Education, Prescription Opioid Use. Follow up: Sergio Cameron; When: Upon discharge from the Emergency Department; Reason: If symptoms return, Recheck today's complaints, Continuance of care. Problem is new. Symptoms have improved. tw4
[2019-04-17] MEDS ORDERED: PHENAZOPYRIDINE 100MG TAB PO ONE (02:04)
[2019-04-17] MEDS ORDERED: NITROFURAN MACRO 100 MG CAP PO ONE (02:05)
[2019-04-17 02:11] VITALS: BP 151/86; TEMP 97.7; O2SAT 99
== END 2019-04-17 01:56 | disposition home or self-care (01) ==
LOC: ER 00:43
DX: N39.0 Urinary tract infection, site not specified (principal); I10 Essential (primary) hypertension; E03.9 Hypothyroidism, unspecified; F41.9 Anxiety disorder, unspecified; Z91.040 Latex allergy status; Z91.048 Other nonmedicinal substance allergy status
CPT/HCPCS: 81003; 81015; 81025; 87077; 87086; 87088; 87186; 99283

== ENCOUNTER 2020-01-09 14:54 | Emergency (ER) | payer BC ==
--- NOTE | 2020-01-09 15:41 | ER ---
Nurse's Notes [facility] Name: Juju Orozco Age: 49 yrs Sex: Female : 1970 Arrival Date: 01/09/2020 Time: 14:56 Bed 13 Private MD: Sergio Cameron Diagnosis: Vertigo Presentation: 01/08 15:04 Chief complaint: Patient states: Heavy mensus last week. Reports dizziness, generalized ll1 weakness, SCOTT with nausea for 4 days. Tried OTC iron pills. Coronavirus screen: Proceed with normal triage. Patient denies a cough. Patient denies shortness of breath or difficulty breathing. Patient denies measured and/or subjective temperature greater than 100.4F prior to today's visit. Patient denies travel on a cruise ship or to a country the [facility] currently lists as an affected area. Patient denies contact with known and/or suspected case of COVID-19. Ebola Screen: Patient denies travel to an Ebola-affected area in the 21 days before illness onset. Initial Sepsis Screen: Does the patient meet any 2 criteria? No. Patient's initial sepsis screen is negative. Does the patient have a suspected source of infection? No. Patient's initial sepsis screen is negative. Risk Assessment: Do you want to hurt yourself or someone else? Patient reports no desire to harm self or others. Onset of symptoms was January 06, 2020. 15:04 Method Of Arrival: Ambulatory ll1 15:04 Acuity: TARIK 3 ll1 Triage Assessment: 15:00 Headache History: The patient has had previous headaches and this one is more severe vc than previous episodes. General: Appears in no apparent distress. uncomfortable, Behavior is calm, cooperative, appropriate for age, Smells of. Pain: Denies pain. 16:40 Pain: Also complains of. 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 - Social history:: Patient/guardian denies using alcohol, street drugs, tobacco products, Smoking status: Patient denies any tobacco usage or history of. Screenin:00 Abuse screen: Denies threats or abuse. Nutritional screening: No deficits noted. vc Tuberculosis screening: No symptoms or risk factors identified. Fall Risk None identified. Assessment: 15:00 General: Appears in no apparent distress. uncomfortable, Behavior is calm, cooperative, vc appropriate for age. Pain: Denies pain. Neuro: Level of Consciousness is awake, alert, obeys commands, Oriented to person, place, time, situation, Appropriate for age Reports dizziness. Neuro: Reports Patient states she gets dizzy when she turns her head to the left. Cardiovascular: Reports lightheadedness, nausea, Denies chest pain, shortness of breath, syncope. Respiratory: Airway is patent Respiratory effort is even, unlabored, Respiratory pattern is regular, symmetrical. GI: No signs and/or symptoms were reported involving the gastrointestinal system. : No signs and/or symptoms were reported regarding the genitourinary system. EENT: No signs and/or symptoms were reported regarding the EENT system. Reports. Derm: Skin temperature is warm. Musculoskeletal: Circulation, motion, and sensation intact. Range of motion: intact in all extremities. 16:00 Reassessment: Patient appears in no apparent distress at this time. Patient and/or vc family updated on plan of care and expected duration. Pain level reassessed. Patient is alert, oriented x 3, equal unlabored respirations, skin warm/dry/pink. Vital Signs: 15:04 BP 172 / 95; Pulse 61; Resp 18; Temp 97.9; Pulse Ox 97% ; Pain 7/10; ll1 15:14 BP 149 / 85 Supine; Pulse 62; vc 15:16 BP 160 / 90 Sitting; Pulse 62; vc 15:18 BP 160 / 91 Standing; Pulse 67; vc ED Course: 14:56 Patient arrived in ED. ag5 14:56 Sergio Cameron MD is Private Physician. ag5 14:57 [facility]-C [facility] kb 14:57 Denilson Peralta MD is Attending Physician. kb 15:05 Patient has correct armband on for positive identification. Bed in low position. Call vc light in reach. Side rails up X 1. Pulse ox on. NIBP on. 15:06 Triage completed. ll1 15:07 Arm band placed on Patient placed in an exam room, on a stretcher. ll1 15:12 Jaylin Kearney, RN is Primary Nurse. vc 15:40 Sergio Cameron MD is Referral Physician. kb 16:05 No provider procedures requiring assistance completed. Patient did not have IV access vc during this emergency room visit. Administered Medications: 16:06 Drug: Meclizine 25 mg Route: PO; vc 16:07 Follow up: Response: Medication administered at discharge. vc Outcome: 15:40 Discharge ordered by . kb 16:05 Discharged to home ambulatory. vc 16:05 Condition: good 16:05 Discharge instructions given to patient, Instructed on discharge instructions, follow up and referral plans. no drinking with medication, no driving heavy equipment, medication usage, Demonstrated understanding of instructions, follow-up care, medications, Prescriptions given X 2. 16:07 Patient left the ED. vc Signatures: Mavis Nelson, TAB CARD PRESS OPERATOR-C TAB CARD PRESS OPERATOR-Ckb Tad Eastman ag5 Jaylin Kearney RN RN vc Rigo Franks RN RN ll1 Corrections: (The following items were deleted from the chart) 16:38 16:34 General: Appears in no apparent distress. uncomfortable, Behavior is calm, vc cooperative, appropriate for age, vc 16:38 16:34 Pain: Denies pain. vc vc 16:38 16:34 Neuro: Level of Consciousness is awake, alert, obeys commands, Oriented to vc person, place, time, situation, Appropriate for age Reports dizziness, vc 16:38 16:34 Cardiovascular: Reports lightheadedness, nausea, Denies chest pain, shortness of vc breath, syncope, vc 16:38 16:34 Respiratory: Airway is patent Respiratory effort is even, unlabored, Respiratory vc pattern is regular, symmetrical, vc 16:38 16:34 GI: No signs and/or symptoms were reported involving the gastrointestinal system. vc vc 16:38 16:34 : No signs and/or symptoms were reported regarding the genitourinary system. vc vc 16:38 16:34 EENT: No signs and/or symptoms were reported regarding the EENT system. Reports vcvc 16:38 16:34 Derm: Skin temperature is warm vc vc 16:38 16:34 Musculoskeletal: Circulation, motion, and sensation intact. Range of motion: vc intact in all extremities, vc 16:38 16:34 Neuro: Reports Patient states she gets dizzy when she turns her head to the left. vc vc
--- NOTE | 2020-01-09 15:41 | EDPHYS ---
Physician Documentation [facility] Name: Juju Orozco Age: 49 yrs Sex: Female : 1970 Arrival Date: 01/09/2020 Time: 14:56 Bed 13 Private MD: Sergio Cameron ED Physician Denilson Peralta HPI: 01/08 15:45 This 49 yrs old Female presents to ER via Ambulatory with complaints of kb Dizziness, Headache, Nausea. 15:45 The patient presents with dizziness. Onset: The symptoms/episode began/occurred 2 kb day(s) ago. Context: occurred at home. Modifying factors: The symptoms are alleviated by holding head still, the symptoms are aggravated by movement of head. Associated signs and symptoms: Pertinent positives: headache, nausea. Severity of symptoms: At their worst the symptoms were moderate in the emergency department the symptoms are unchanged. Patient's baseline: Neuro: alert and fully oriented, Motor: no deficits, Ambulation: walks without assistance, Speech: normal. The patient has not experienced similar symptoms in the past. The patient has not recently seen a physician. Pt reports dizziness when she turns her head to the left. Reports headahce and nausea that have been coming on randomly. 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 - Social history:: Patient/guardian denies using alcohol, street drugs, tobacco products, Smoking status: Patient denies any tobacco usage or history of. ROS: 15:45 Constitutional: Negative for fever, chills, and weight loss, ENT: Negative for injury, kb pain, and discharge, Neck: Negative for injury, pain, and swelling, Cardiovascular: Negative for chest pain, palpitations, and edema, Respiratory: Negative for shortness of breath, cough, wheezing, and pleuritic chest pain, Back: Negative for injury and pain, : Negative for injury, bleeding, discharge, and swelling, MS/Extremity: Negative for injury and deformity, Skin: Negative for injury, rash, and discoloration. 15:45 Abdomen/GI: Positive for nausea. 15:45 Neuro: Positive for dizziness. Exam: 15:45 Constitutional: This is a well developed, well nourished patient who is awake, alert, kb and in no acute distress. Head/Face: Normocephalic, atraumatic. Eyes: Pupils equal round and reactive to light, extra-ocular motions intact. Lids and lashes normal. Conjunctiva and sclera are non-icteric and not injected. Cornea within normal limits. Periorbital areas with no swelling, redness, or edema. ENT: Nares patent. No nasal discharge, no septal abnormalities noted. Tympanic membranes are normal and external auditory canals are clear. Oropharynx with no redness, swelling, or masses, exudates, or evidence of obstruction, uvula midline. Mucous membranes moist. Neck: Trachea midline, no thyromegaly or masses palpated, and no cervical lymphadenopathy. Supple, full range of motion without nuchal rigidity, or vertebral point tenderness. No Meningismus. Chest/axilla: Normal chest wall appearance and motion. Nontender with no deformity. No lesions are appreciated. Cardiovascular: Regular rate and rhythm with a normal S1 and S2. No gallops, murmurs, or rubs. Normal PMI, no JVD. No pulse deficits. Respiratory: Lungs have equal breath sounds bilaterally, clear to auscultation and percussion. No rales, rhonchi or wheezes noted. No increased work of breathing, no retractions or nasal flaring. Abdomen/GI: Soft, non-tender, with normal bowel sounds. No distension or tympany. No guarding or rebound. No evidence of tenderness throughout. Back: No spinal tenderness. No costovertebral tenderness. Full range of motion. Skin: Warm, dry with normal turgor. Normal color with no rashes, no lesions, and no evidence of cellulitis. MS/ Extremity: Pulses equal, no cyanosis. Neurovascular intact. Full, normal range of motion. Neuro: Awake and alert, GCS 15, oriented to person, place, time, and situation. Cranial nerves II-XII grossly intact. Motor strength 5/5 in all extremities. Sensory grossly intact. Cerebellar exam normal. Normal gait. Vital Signs: 15:04 BP 172 / 95; Pulse 61; Resp 18; Temp 97.9; Pulse Ox 97% ; Pain 7/10; ll1 15:14 BP 149 / 85 Supine; Pulse 62; vc 15:16 BP 160 / 90 Sitting; Pulse 62; vc 15:18 BP 160 / 91 Standing; Pulse 67; vc MDM: 14:57 Patient medically screened. kb 15:39 Data reviewed: vital signs, nurses notes. Data interpreted: Pulse oximetry: on room air kb is 97 %. Interpretation: normal. Counseling: I had a detailed discussion with the patient and/or guardian regarding: the historical points, exam findings, and any diagnostic results supporting the discharge/admit diagnosis, lab results, the need for outpatient follow up, a family practitioner, to return to the emergency department if symptoms worsen or persist or if there are any questions or concerns that arise at home. ED course: Landon maneuver performed. Pt's symptoms resolved. . 01/08 15:37 Order name: Urine Dipstick--Ancillary (enter results) kb 01/08 15:11 Order name: Orthostatics; Complete Time: 15:24 kb 01/08 15:16 Order name: Urine Dipstick-Ancillary (obtain specimen); Complete Time: 16:06 kb Administered Medications: 16:06 Drug: Meclizine 25 mg Route: PO; vc 16:07 Follow up: Response: Medication administered at discharge. vc Disposition: 16:25 Co-signature as Attending Physician, Denilson Peralta MD I agree with the assessment and kdr plan of care. Disposition: 01/09/20 15:40 Discharged to Home. Impression: Vertigo. - Condition is Stable. - Discharge Instructions: Benign Positional Vertigo. - Prescriptions for Meclizine 25 mg Oral Tablet - take 1 tablet by ORAL route every 8 hours As needed; 30 tablet. Zofran 4 mg Oral Tablet - take 1 tablet by ORAL route every 6 hours As needed; 20 tablet. - Medication Reconciliation Form, Thank You Letter, Antibiotic Education, Prescription Opioid Use form. - Follow up: Emergency Department; When: As needed; Reason: Worsening of condition. Follow up: Sergio Cameron MD; When: 2 - 3 days; Reason: Recheck today's complaints, Continuance of care, Re-evaluation by your physician. Signatures: Dispatcher [employer] EDWA Mavis Nelson, SR ACCOUNT EXECUTIVE-C SHANNON-Denilson Patricia MD MD kdr Calcote, Vanessa, RN RN vc Golden, Lynsay, RN RN ll1 Corrections: (The following items were deleted from the chart) :45 15:43 Constitutional: This is a well developed, well nourished patient who is awake, kb alert, and in no acute distress. Head/Face: Normocephalic, atraumatic. ENT: Nares patent. No nasal discharge, no septal abnormalities noted. Tympanic membranes are normal and external auditory canals are clear. Oropharynx with no redness, swelling, or masses, exudates, or evidence of obstruction, uvula midline. Mucous membranes moist. Neck: Trachea midline, no thyromegaly or masses palpated, and no cervical lymphadenopathy. Supple, full range of motion without nuchal rigidity, or vertebral point tenderness. No Meningismus. Chest/axilla: Normal chest wall appearance and motion. Nontender with no deformity. No lesions are appreciated. Cardiovascular: Regular rate and rhythm with a normal S1 and S2. No gallops, murmurs, or rubs. Normal PMI, no JVD. No pulse deficits. Abdomen/GI: Soft, non-tender, with normal bowel sounds. No distension or tympany. No guarding or rebound. No evidence of tenderness throughout. Skin: Warm, dry with normal turgor. Normal color with no rashes, no lesions, and no evidence of cellulitis. MS/ Extremity: Pulses equal, no cyanosis. Neurovascular intact. Full, normal range of motion. Neuro: Awake and alert, GCS 15, oriented to person, place, time, and situation. Cranial nerves II-XII grossly intact. Motor strength 5/5 in all extremities. Sensory grossly intact. Cerebellar exam normal. Normal gait. kb :45 15:43 Respiratory: the patient does not display signs of respiratory distress, kb Respirations: kussmals respiration, Breath sounds: are clear throughout, kb :45 15:44 ENT: Negative for injury, pain, and discharge, Neck: Negative for injury, pain, kb and swelling, Cardiovascular: Negative for chest pain, palpitations, and edema, Back: Negative for injury and pain, MS/Extremity: Negative for injury and deformity, Skin: Negative for injury, rash, and discoloration, Neuro: Negative for headache, weakness, numbness, tingling, and seizure, kb :45 15:44 Constitutional: Positive for body aches, malaise, kb kb 15:45 15:44 Respiratory: Positive for cough, shortness of breath, Negative for dyspnea on kb exertion, hemoptysis, orthopnea, pleurisy, sputum production, wheezing, kb 15:45 15:44 Abdomen/GI: Positive for nausea and vomiting, Negative for abdominal pain, kb diarrhea, constipation, kb 16:07 15:40 01/09/2020 15:40 Discharged to Home. Impression: Vertigo. Condition is Stable. vc Forms are Medication Reconciliation Form, Thank You Letter, Antibiotic Education, Prescription Opioid Use. Follow up: Emergency Department; When: As needed; Reason: Worsening of condition. Follow up: Sergio Cameron; When: 2 - 3 days; Reason: Recheck today's complaints, Continuance of care, Re-evaluation by your physician. kb
[2020-01-09] MEDS ORDERED: MECLIZINE HCL 12.5 MG TAB ONE (16:08)
[2020-01-09 16:24] VITALS: TEMP 97.9; O2SAT 97
[2020-01-09 16:27] VITALS: BP 160/91
[2020-01-09 20:47] LABS: Urine Blood 1+ (NEG); Urine Glucose NEGATIVE (NEG); Urine Protein NEGATIVE (NEG); Urine Specific Gravity >1.030 (1.005-1.030); Urine pH 5.5 (5.0-7.0)
== END 2020-01-09 16:07 | disposition home or self-care (01) ==
LOC: ER 14:54
DX: R42 Dizziness and giddiness (principal); R11.0 Nausea; I10 Essential (primary) hypertension; Z91.040 Latex allergy status; Z91.048 Other nonmedicinal substance allergy status
CPT/HCPCS: 81003; J8597

== ENCOUNTER 2021-06-04 13:55 | Emergency (ER) | payer BC ==
--- OUTSIDE RECORDS SUMMARY | 2021-06-04 13:57 | XMS REPORT | Continuity of Care Document ---
:1970 Author Organization [facility] t Address [address] [place] [address] Dr. Musa [address] [place] [id number] Care Team Providers Name Role Phone Unavailable Unavailable Unavailable Problems This patient has no known problems. Allergies, Adverse Reactions, Alerts This patient has no known allergies or adverse reactions. Medications This patient has no known medications. Procedures This patient has no known procedures. Results This patient has no known results.
--- NOTE | 2021-06-04 15:02 | RAD REPORT ---
EXAM DESCRIPTION: RAD - Wrist Right 3 View - 06/04/2021 2:55 pm CLINICAL HISTORY: PAIN Pain COMPARISON: No comparisons FINDINGS: No fracture or dislocation seen. No foreign body or other soft tissue abnormality. IMPRESSION: Negative examination.
--- NOTE | 2021-06-04 15:09 | ER ---
Nurse's Notes [facility] Name: Juju Orozco Age: 50 yrs Sex: Female : 1970 Arrival Date: 06/04/2021 Time: 13:57 Bed 11 Private MD: Sergio Cameron Diagnosis: Sprain of unspecified part of right wrist and hand;Contusion of right wrist Presentation: 06/04 14:16 Chief complaint: Patient states: Fell at work due to wet floor, c/o right wrist pain, jl7 swelling noted. Coronavirus screen: Vaccine status: Patient reports being unvaccinated. At this time, the client does not indicate any symptoms associated with coronavirus-19. Ebola Screen: No symptoms or risks identified at this time. Initial Sepsis Screen: Does the patient meet any 2 criteria? No. Patient's initial sepsis screen is negative. Does the patient have a suspected source of infection? No. Patient's initial sepsis screen is negative. Risk Assessment: Do you want to hurt yourself or someone else? Patient reports no desire to harm self or others. Onset of symptoms was June 04, 2021. 14:16 Method Of Arrival: Ambulatory 7 14:16 Acuity: TARIK 4 jl7 Triage Assessment: 14:17 General: Appears in no apparent distress. uncomfortable, Behavior is calm, cooperative, jl7 appropriate for age. Pain: Complains of pain in right wrist Pain currently is 8 out of 10 on a pain scale. Musculoskeletal: Swelling present in right wrist. Injury Description: swelling to right wrist. 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 - Social history:: Smoking status: Patient denies any tobacco usage or history of. - Family history:: not pertinent. - Hospitalizations: : No recent hospitalization is reported. Screenin:22 Abuse screen: Denies threats or abuse. Denies injuries from another. Nutritional ld1 screening: No deficits noted. Tuberculosis screening: No symptoms or risk factors identified. Fall Risk None identified. Assessment: 14:22 General: Appears in no apparent distress. comfortable, Behavior is calm, cooperative, ld1 appropriate for age. Pain: Complains of pain in right hand Pain does not radiate. Pain currently is 8 out of 10 on a pain scale. Quality of pain is described as throbbing, Pain began 2 hours ago. Is continuous. Neuro: Level of Consciousness is awake, alert, obeys commands, Oriented to person, place, time, situation, Appropriate for age. Cardiovascular: Capillary refill < 3 seconds Patient's skin is warm and dry. Respiratory: Airway is patent Respiratory effort is even, unlabored, Respiratory pattern is regular, symmetrical. GI: Abdomen is round non-distended. : No signs and/or symptoms were reported regarding the genitourinary system. EENT: No signs and/or symptoms were reported regarding the EENT system. Derm: No signs and/or symptoms reported regarding the dermatologic system. Musculoskeletal: Swelling present in right hand. Vital Signs: 14:16 BP 174 / 89; Pulse 61; Resp 15; Temp 98.6; Pulse Ox 100% ; Weight 93.89 kg; Height 5 jl7 ft. 5 in. (165.10 cm); Pain 8/10; 14:22 BP 168 / 89; Pulse 65; Resp 17; Pulse Ox 100% on R/A; Pain 8/10; ld1 14:16 Body Mass Index 34.45 (93.89 kg, 165.10 cm) jl7 ED Course: 13:57 Patient arrived in ED. mr 13:57 Sergio Cameron MD is Private Physician. mr 14:05 Chema Beyer MD is Attending Physician. rn 14:17 Triage completed. jl7 14:17 Arm band placed on left wrist. jl7 14:22 Patient has correct armband on for positive identification. Bed in low position. Call ld1 light in reach. Side rails up X2. Pulse ox on. NIBP on. Door closed. Noise minimized. 14:22 No provider procedures requiring assistance completed. ld1 14:55 XRAY Wrist RIGHT 3 view In Process Unspecified. EDMS 15:20 Patient did not have IV access during this emergency room visit. ld1 Administered Medications: No medications were administered Outcome: 15:09 Discharge ordered by . rn 15:19 Discharged to home ambulatory. ld1 15:19 Condition: stable 15:19 Discharge instructions given to patient, Instructed on discharge instructions, follow up and referral plans. Demonstrated understanding of instructions, follow-up care. 15:20 Patient left the ED. ld1 Signatures: Dispatcher [employer] [facility] SchaferShannan Roman, MD MD rn Leal, Jahala, RN RN jl7 Edith Menard RN RN ld1 Corrections: (The following items were deleted from the chart) 14:18 14:17 Arm band placed on right wrist. jl7 jl7
--- NOTE | 2021-06-04 15:09 | EDPHYS ---
Physician Documentation [facility] Name: Juju Orozco Age: 50 yrs Sex: Female : 1970 Arrival Date: 06/04/2021 Time: 13:57 Bed 11 Private MD: Sergio Cameron ED Physician Chema Beyer HPI: 06/04 14:42 This 50 yrs old Female presents to ER via Ambulatory with complaints of Wrist rn Injury. 14:42 The patient or guardian reports decreased range of motion, injury, pain. The complaints rn affect the right wrist diffusely. Onset: The symptoms/episode began/occurred just prior to arrival. Modifying factors: The symptoms are alleviated by nothing, the symptoms are aggravated by movement, dependent position. Associated signs and symptoms: Pertinent negatives: cyanosis distally, decreased sensation distally, fever, numbness distally, tingling distally. The patient has not experienced similar symptoms in the past. The patient has not recently seen a physician. Patient reports fall on outstretched hand, her right wrist, hurts to move in dependent position. No numbness or tingling. No pain in proximal forearm or elbow or hand. No other injuries. No p.o. intake today.. 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 - Social history:: Smoking status: Patient denies any tobacco usage or history of. - Family history:: not pertinent. - Hospitalizations: : No recent hospitalization is reported. ROS: 14:42 Constitutional: Negative for fever, chills, and weight loss, MS/Extremity: Positive for rn injury and pain to right wrist Skin: Negative for open wounds or laceration Neuro: Negative for weakness, numbness, tingling Exam: 14:42 Constitutional: This is a well developed, well nourished patient who is awake, alert, rn and in no acute distress. Skin: Warm, dry, and no open wounds MS/ Extremity: Pulses equal, no cyanosis. Neurovascular intact. Painful range of motion with tenderness distal radius and ulna. Mild swelling. No open wounds. Vital Signs: 14:16 BP 174 / 89; Pulse 61; Resp 15; Temp 98.6; Pulse Ox 100% ; Weight 93.89 kg; Height 5 jl7 ft. 5 in. (165.10 cm); Pain 8/10; 14:22 BP 168 / 89; Pulse 65; Resp 17; Pulse Ox 100% on R/A; Pain 8/10; ld1 14:16 Body Mass Index 34.45 (93.89 kg, 165.10 cm) jl7 MDM: 14:20 Patient medically screened. rn 15:08 Differential diagnosis: closed fracture, contusion. Differential diagnosis: Sprain. rn Data reviewed: vital signs, nurses notes. Data reviewed: radiologic studies, plain films, and as a result, I will discharge patient. Test interpretation: by ED physician or midlevel provider: plain radiologic studies, X-ray right wrist negative for for acute fracture or dislocation.. Counseling: I had a detailed discussion with the patient and/or guardian regarding: the historical points, exam findings, and any diagnostic results supporting the discharge/admit diagnosis, radiology results, the need for outpatient follow up, to return to the emergency department if symptoms worsen or persist or if there are any questions or concerns that arise at home. Special discussion: I discussed with the patient/guardian in detail that at this point there is no indication for admission to the hospital. It is understood, however, that if the symptoms persist or worsen the patient needs to return immediately for re-evaluation. 06/04 14:24 Order name: XRAY Wrist RIGHT 3 view; Complete Time: 15:06 rn 06/04 14:24 Order name: Ice pack; Complete Time: 14:24 rn 06/04 15:10 Order name: Wrist Splint: wrist velcro brace; Complete Time: 15:12 rn Administered Medications: No medications were administered Disposition Summary: 06/04/21 15:09 Discharge Ordered Location: Home rn Problem: new rn Symptoms: have improved rn Condition: Stable rn Diagnosis - Sprain of unspecified part of right wrist and hand rn - Contusion of right wrist rn Followup: rn - With: Private Physician - When: As needed - Reason: Recheck today's complaints, Re-evaluation by your physician Discharge Instructions: - Discharge Summary Sheet rn - Wrist Sprain, Adult rn Forms: - Medication Reconciliation Form rn - Thank You Letter rn - Antibiotic medical intern - Prescription Opioid Use rn Signatures: Dispatcher [employer] EDChema Tate MD MD rn Leal, Jahala, RN RN jl7
[2021-06-04 18:13] VITALS: BP 168/89; TEMP 98.6; O2SAT 100
== END 2021-06-04 15:20 | disposition home or self-care (01) ==
LOC: ER 13:55
DX: S63.91XA Sprain of unspecified part of right wrist and hand, initial encounter (principal); W19.XXXA Unspecified fall, initial encounter; I10 Essential (primary) hypertension; Z91.040 Latex allergy status; Z91.048 Other nonmedicinal substance allergy status
CPT/HCPCS: 99283

== ENCOUNTER 2021-09-30 11:32 | Emergency (ER) | payer BC ==
--- OUTSIDE RECORDS SUMMARY | 2021-09-30 11:35 | XMS REPORT | Continuity of Care Document ---
:1970 Author Organization [facility] t Address [address] [place] [address] [address] [place] [address] Care Team Providers Name Role Phone Lab, Fam Pob I Attending Clinician Unavailable Jim ESTEVEZP Attending Clinician JIM Attending Clinician Unavailable Lizbeth ORTEGA, Gilson Attending Clinician Payers Payer Name Policy Type Policy Number Effective Date Expiration Date S ource Problems This patient has no known problems. Allergies, Adverse Reactions, Alerts Allergy Allergy Status Severity Reaction(s) Onset Inactive Treating Comm ents Source Name Type Date Date Clinician NO KNOWN Drug Active [facility] ALLERGIE Class ity of S [facility] Social History Social Habit Start Date Stop Date Quantity Comments Source Exposure to Yes [facility] SARS-CoV-2 (event) Medica l Branch Sex Assigned At [birth year] [facility] 00:00:00 00:00:00 [facility] Branch Smoking Status Start Date Stop Date Source Unknown if ever smoked [facility] Medications Ordered Filled Start Stop Current Ordering Indication Dosage Frequency Signature Comments Components Source Medication Medication Date Date Medication? Clinician (SIG) Name Name ibuprofen Yes 800mg Take 1 Unive rs (MOTRIN) 7-02 tablet by ity of 800 mg 00:00: mouth [place] tablet 00 every 6 Medical (six) Branch hours as needed for Pain unrelieved by Tylenol. clindamycin Yes 300mg Take 1 Uni vers (CLEOCIN) 7-02 capsule by ity of 300 mg 00:00: mouth 3 [place] capsule 00 (three) Medical times Branch daily. ibuprofen Yes 800mg Take 1 Unive rs (MOTRIN) 7-02 tablet by ity of 800 mg 00:00: mouth [place] tablet 00 every 6 Medical (six) Branch hours as needed for Pain unrelieved by Tylenol. clindamycin 2016-0 Yes 300mg Take 1 Uni vers (CLEOCIN) 7-02 capsule by ity of 300 mg 00:00: mouth 3 [place] capsule 00 (three) Medical times Branch daily. Procedures This patient has no known procedures. Encounters Start End Encounter Admission Attending Care Care Encounter Source Date/Time Date/Time Type Type Clinicians Facility Department ID 2021-04-25 2021-04-25 Laboratory Lab, [facility] I [facility] 1.2. [id number] Univers 15:37:23 15:57:23 Only Haleigh Bledsoe [facility] [id number] ity of [place] [id number] Fortunato as Professio [phone] In dical nal [address] [place] [address] One 2021-04-25 2021-04-25 Outpatient [facility] [id number] Univers 15:40:00 15:40:00 [id number] ity of [facility] 2021-04-25 2021-04-25 [facility] [id number] Univers 15:40:00 15:40:00 HALEIGH feldmany o f [facility] 2021-01-01 2021-01-01 Laboratory Lab, [facility] I [facility] 1.2. [id number] Univers 15:35:50 15:55:50 Only [facility] [id number] ity of [place] [id number] Fortunato as Professio [phone] In dical nal [address] [place] [address] Office [facility] One 2021-01-01 2021-01-01 Outpatient R [facility] [id number] Univers 15:40:00 15:40:00 ity of [facility] 2020-12-30 2020-12-30 Outpatient R [facility] [id number] Univers 13:30:00 13:30:00 [id number] y [facility] Results This patient has no known results.
[2021-09-30 14:26] LABS: SARS-COV-2 RT PCR NEGATIVE (NEGATIVE)
--- NOTE | 2021-09-30 14:35 | EDPHYS ---
Physician Documentation [facility] Name: Juju Orozco Age: 50 yrs Sex: Female : 1970 Arrival Date: 09/30/2021 Time: 11:34 Bed 10 Private MD: Sergio Cameron ED Physician Chema Beyer HPI: 09/30 14:57 This 50 yrs old Female presents to ER via Ambulatory with complaints of jr8 Nausea, Cough. 14:57 Severity of symptoms: At their worst the symptoms were moderate in the emergency jr8 department the symptoms are unchanged. The patient has not experienced similar symptoms in the past. The patient has not recently seen a physician. This is a 50-year-old female who presented to the emergency room with complaints of 6 days of cough and now nausea. Patient stated that she was experiencing some increased shortness of breath and pain with cough. Last night ran a fever of 100.0. Has been taking [id number] medications but without improvement at this time.. Historical: - Allergies: 11:45 Latex, Natural Rubber; ll1 - PMHx: 11:45 Anxiety; Hypertension; Hypothyroidism; Migraines; ll1 - PSHx: 11:45 section; ll1 - Immunization history:: Client reports having NOT received the Covid vaccine. Flu vaccine status is unknown. - Social history:: Smoking status: Patient denies any tobacco usage or history of. ROS: 14:57 Eyes: Negative for injury, pain, redness, and discharge, ENT: Negative for injury, jr8 pain, and discharge, Neck: Negative for injury, pain, and swelling, Back: Negative for injury and pain, MS/Extremity: Negative for injury and deformity, Skin: Negative for injury, rash, and discoloration, Neuro: Negative for headache, weakness, numbness, tingling, and seizure. 14:57 Constitutional: Positive for fever. 14:57 Cardiovascular: Positive for chest pain, with cough, Negative for edema, orthopnea, palpitations, paroxysmal nocturnal dyspnea. 14:57 Respiratory: Positive for cough, shortness of breath, wheezing. Exam: 14:57 Constitutional: This is a well developed, well nourished patient who is awake, alert, jr8 and in no acute distress. ENT: Nares patent. No nasal discharge, no septal abnormalities noted. Tympanic membranes are normal and external auditory canals are clear. Oropharynx with no redness, swelling, or masses, exudates, or evidence of obstruction, uvula midline. Mucous membranes moist. Neck: Trachea midline, no thyromegaly or masses palpated, and no cervical lymphadenopathy. Supple, full range of motion without nuchal rigidity, or vertebral point tenderness. No Meningismus. Cardiovascular: Regular rate and rhythm with a normal S1 and S2. No gallops, murmurs, or rubs. Normal PMI, no JVD. No pulse deficits. Abdomen/GI: Soft, non-tender, with normal bowel sounds. No distension or tympany. No guarding or rebound. No evidence of tenderness throughout. Back: No spinal tenderness. No costovertebral tenderness. Full range of motion. Skin: Warm, dry with normal turgor. Normal color with no rashes, no lesions, and no evidence of cellulitis. MS/ Extremity: Pulses equal, no cyanosis. Neurovascular intact. Full, normal range of motion. Neuro: Awake and alert, GCS 15, oriented to person, place, time, and situation. Cranial nerves II-XII grossly intact. Motor strength 5/5 in all extremities. Sensory grossly intact. 14:57 Respiratory: the patient does not display signs of respiratory distress, Respirations: normal, symetrical, no use of accessory muscles, no grunting, no evidence of nasal flaring, no appreciated paradoxical movements, no prolonged exhalations, no pursed lip breathing, no retractions, no shallow respirations, no splinting, no tachypnea, Breath sounds: wheezing: expiratory that is mild, is heard diffusely. Vital Signs: 11:44 BP 178 / 108; Pulse 66; Resp 17; Temp 98.0; Pulse Ox 98% ; Weight 97.07 kg; Height 5 ll1 ft. 5 in. (165.10 cm); Pain 8/10; 11:44 Body Mass Index 35.61 (97.07 kg, 165.10 cm) ll1 MDM: 13:38 Patient medically screened. jr8 14:34 Data reviewed: vital signs, nurses notes, radiologic studies, plain films. Data jr8 reviewed: lab test result(s). Data interpreted: Pulse oximetry: on room air is 98 %. Interpretation: normal. Counseling: I had a detailed discussion with the patient and/or guardian regarding: the historical points, exam findings, and any diagnostic results supporting the discharge/admit diagnosis, lab results, radiology results, the need for outpatient follow up, a family practitioner, to return to the emergency department if symptoms worsen or persist or if there are any questions or concerns that arise at home. 09/30 11:48 Order name: COVID-19/FLU A+B (Document "Date of Onset" if Symptomatic); Complete Time: ll1 14:29 Administered Medications: 14:46 Drug: Ondansetron 4 mg Route: PO; ll3 14:46 Follow up: Response: No adverse reaction ll3 Disposition: 17:10 Co-signature as Attending Physician, Chema Beyer MD I agree with the assessment and rn plan of care. Attestation: The patient's history, exam findings, diagnostics, and a summary of any interventions or procedures was reviewed in detail with David SMITH. Disposition Summary: 09/30/21 14:34 Discharge Ordered Location: Home jr8 Problem: new jr8 Symptoms: have improved jr8 Condition: Stable jr8 Diagnosis - Acute bronchitis, unspecified jr8 Followup: jr8 - With: Sergio Cameron MD - When: 1 week - Reason: Recheck today's complaints, Continuance of care, Re-evaluation by your physician Discharge Instructions: - Discharge Summary Sheet jr8 - Acute Bronchitis, Adult jr8 Forms: - Medication Reconciliation Form jr8 - Thank You Letter jr8 - Antibiotic Education jr8 - Prescription Opioid Use jr8 Prescriptions: - albuterol sulfate 90 mcg/actuation Inhalation HFA aerosol inhaler - inhale 2 puff by INHALATION route every 4 hours; 1 Inhaler; Refills: 0, Product jr8 Selection Permitted - Medrol (Steve) 4 mg Oral Tablets, Dose Pack - take 1 tablet by ORAL route as directed - follow package instructions; 1 jr8 packet; Refills: 0, Product Selection Permitted Signatures: Dispatcher [employer] Chema Lester MD MD rn Roszak, Josh, PA PA jr8 Rigo Franks RN RN ll1 Carola Kumari RN RN ll3
--- NOTE | 2021-09-30 14:35 | ER ---
Nurse's Notes [facility] Name: Juju Orozco Age: 50 yrs Sex: Female : 1970 Arrival Date: 09/30/2021 Time: 11:34 Bed 10 Private MD: Sergio Cameron Diagnosis: Acute bronchitis, unspecified Presentation: 09/30 11:44 Chief complaint: Patient states: Cough, nausea, fever, body aches, fatigue for 6 days. ll1 Daughter has URI right now. Coronavirus screen: Vaccine status: Patient reports being unvaccinated. Client denies travel out of the [place] in the last 14 days. congestion, cough unrelated to allergies, fatigue, headache, muscle pain, nausea, Client presents with at least one sign or symptom that may indicate coronavirus-19. Standard/surgical mask placed on the client. Ebola Screen: Patient denies travel to an Ebola-affected area in the 21 days before illness onset. Initial Sepsis Screen: Does the patient meet any 2 criteria? No. Patient's initial sepsis screen is negative. Does the patient have a suspected source of infection? Yes: Productive cough/pneumonia. Risk Assessment: Do you want to hurt yourself or someone else? Patient reports no desire to harm self or others. Onset of symptoms was September 24, 2021. 11:44 Method Of Arrival: Ambulatory [facility] 11:44 Acuity: TARIK 4 ll1 Triage Assessment: 11:46 General: Appears ill, Behavior is calm, cooperative, appropriate for age. Pain: Denies 1 pain. Respiratory: Reports cough that is. GI: Reports nausea. Historical: - Allergies: 11:45 Latex, Natural Rubber; ll1 - PMHx: 11:45 Anxiety; Hypertension; Hypothyroidism; Migraines; ll1 - PSHx: 11:45 section; ll1 - Immunization history:: Client reports having NOT received the Covid vaccine. Flu vaccine status is unknown. - Social history:: Smoking status: Patient denies any tobacco usage or history of. Screenin:46 Abuse screen: Denies threats or abuse. Nutritional screening: No deficits noted. ll3 Tuberculosis screening: No symptoms or risk factors identified. Fall Risk None identified. Vital Signs: 11:44 BP 178 / 108; Pulse 66; Resp 17; Temp 98.0; Pulse Ox 98% ; Weight 97.07 kg; Height 5 ll1 ft. 5 in. (165.10 cm); Pain 8/10; 11:44 Body Mass Index 35.61 (97.07 kg, 165.10 cm) ll1 ED Course: 11:34 Patient arrived in ED. ds1 11:34 Sergio Cameron MD is Private Physician. ds1 11:45 Triage completed. ll1 11:46 Arm band placed on. ll1 13:37 David Malik PA is PHCP. jr8 13:37 Chema Beyer MD is Attending Physician. jr8 14:34 Sergio Cameron MD is Referral Physician. jr8 14:46 Patient has correct armband on for positive identification. Call light in reach. Side ll3 rails up X 1. 14:46 No provider procedures requiring assistance completed. Patient did not have IV access ll3 during this emergency room visit. Administered Medications: 14:46 Drug: Ondansetron 4 mg Route: PO; ll3 14:46 Follow up: Response: No adverse reaction ll3 Outcome: 14:34 Discharge ordered by . jr8 14:46 Discharged to home ambulatory. ll3 14:46 Condition: stable 14:46 Discharge instructions given to patient, Instructed on discharge instructions, follow up and referral plans. medication usage, Demonstrated understanding of instructions, follow-up care, medications, Prescriptions given X 4. 14:47 Patient left the ED. ll3 Signatures: Aguero Patricia ds1 David Malik PA PA jr8 Rigo Franks RN RN ll1 Carola Kumari RN RN ll3
[2021-09-30] MEDS ORDERED: ONDANSETRON 4 MG (ODT) TAB ONE (14:46)
[2021-09-30 15:01] VITALS: BP 178/108; TEMP 98; O2SAT 98
== END 2021-09-30 14:47 | disposition home or self-care (01) ==
LOC: ER 11:32
DX: J20.9 Acute bronchitis, unspecified (principal); Z20.822 Contact with and (suspected) exposure to COVID-19; I10 Essential (primary) hypertension; Z91.040 Latex allergy status; Z91.048 Other nonmedicinal substance allergy status
CPT/HCPCS: 0240U; 99283

== ENCOUNTER 2022-04-17 23:26 | Emergency (ER) | payer BC ==
[2022-04-17] MEDS ORDERED: ONDANSETRON 4 MG (ODT) TAB ONE (23:54)
[2022-04-18 00:09] LABS: Urine Blood 1+ (Negative); Urine Glucose Negative (Negative); Urine Protein Negative (Negative); Urine pH 6.5 (5.0-7.0)
[2022-04-18 00:15] LABS: Absolute Lymphocytes (CBC) 1.5 K/uL (0.7-4.9); Hematocrit 40.9 % (36.0-45.0); Lymphocytes % 20.9 % (15.3-44.8); MCV 87.5 fL (80-100); MPV 8.8 fL (7.6-11.3); RBC Red Blood Cell Count 4.67 M/uL (3.86-4.86)
[2022-04-18 00:33] LABS: Potassium 3.5 mmol/L (3.5-5.1); Troponin High Sensitivity 3.6 pg/mL (<58.9)
--- NOTE | 2022-04-18 05:13 | ER ---
Nurse's Notes [facility] Name: Juju Orozco Age: 51 yrs Sex: Female : 1970 Arrival Date: 04/17/2022 Time: 23:34 Bed 14 Private MD: Diagnosis: Palpitations Presentation: 04/17 23:35 Chief complaint: Patient states: "My heart has been palpating and I feel nausea, like I tw5 am going to faint.". Chief complaint: Patient states: "I am going through menopause, so this has been going off and on, but today is the worst.". Coronavirus screen: Vaccine status: Patient reports being unvaccinated. Ebola Screen: Patient negative for fever greater than or equal to 101.5 degrees Fahrenheit, and additional compatible Ebola Virus Disease symptoms Patient denies exposure to infectious person. Patient denies travel to an Ebola-affected area in the 21 days before illness onset. Initial Sepsis Screen: Does the patient meet any 2 criteria? No. Patient's initial sepsis screen is negative. Does the patient have a suspected source of infection? No. Patient's initial sepsis screen is negative. Risk Assessment: Do you want to hurt yourself or someone else? Patient reports no desire to harm self or others. Onset of symptoms is unknown. 23:35 Method Of Arrival: Ambulatory tw5 23:35 Acuity: TARIK 3 tw5 Triage Assessment: 23:39 General: Appears uncomfortable, Behavior is calm, cooperative, appropriate for age. 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 - Social history:: Smoking status: Patient denies any tobacco usage or history of. Screenin:40 Abuse screen: Denies threats or abuse. Denies injuries from another. Nutritional tw5 screening: No deficits noted. Tuberculosis screening: No symptoms or risk factors identified. Fall Risk None identified. Assessment: 04/18 01:00 General: Appears in no apparent distress. uncomfortable, Behavior is calm, cooperative, vc1 appropriate for age. Neuro: Level of Consciousness is awake, alert, obeys commands, Oriented to person, place, time, situation, Appropriate for age. Cardiovascular: Reports palpitations. Respiratory: Airway is patent Respiratory effort is even, unlabored, Respiratory pattern is regular, symmetrical. GI: Reports nausea. 02:00 Reassessment: No changes from previously documented assessment. Patient and/or family vc1 updated on plan of care and expected duration. Pain level reassessed. 03:00 Reassessment: No changes from previously documented assessment. Patient and/or family vc1 updated on plan of care and expected duration. Pain level reassessed. 04:00 Reassessment: No changes from previously documented assessment. Patient and/or family vc1 updated on plan of care and expected duration. Pain level reassessed. 05:00 Reassessment: No changes from previously documented assessment. Patient and/or family vc1 updated on plan of care and expected duration. Pain level reassessed. Vital Signs: 04/17 23:35 BP 175 / 95; Pulse 83; Resp 18; Temp 97.6; Pulse Ox 100% on R/A; Weight 99.79 kg; tw5 Height 5 ft. 5 in. (165.10 cm); Pain 0/10; 04/18 01:00 BP 123 / 75; Pulse 61; Resp 18; Pulse Ox 95% ; vc1 02:00 BP 109 / 77; Pulse 60; Resp 18; Pulse Ox 93% ; vc1 03:00 BP 109 / 72; Pulse 56; Resp 15; Pulse Ox 94% ; vc1 05:20 BP 109 / 72; Pulse 56; Resp 16; Pulse Ox 95% on R/A; vc1 04/17 23:35 Body Mass Index 36.61 (99.79 kg, 165.10 cm) tw5 ED Course: 04/17 23:34 Patient arrived in ED. ja2 23:39 Triage completed. tw5 23:39 Arm band placed on. tw5 23:47 Inserted saline lock: 20 gauge in right antecubital area, using aseptic technique. tw5 Blood collected. started by [employer]. 04/18 00:26 Neil Agosto MD is Attending Physician. 7 00:29 Brady Adrian, RN is Primary Nurse. jb4 00:39 XRAY Chest (1 view) In Process Unspecified. EDMS 01:00 Patient has correct armband on for positive identification. Placed in gown. Pulse ox vc1 on. NIBP on. 01:59 TSH Sent. mh5 03:37 CT Chest For PE Angio In Process Unspecified. EDMS 05:12 Flaquito Coto MD is Referral Physician. 7 05:20 No provider procedures requiring assistance completed. vc1 05:21 IV discontinued, intact, bleeding controlled, No redness/swelling at site. Pressure vc1 dressing applied. Administered Medications: 04/17 23:46 Drug: Ondansetron 4 mg Route: PO; tw5 Medication: 04/18 05:12 VIS not applicable for this client. vc1 Outcome: 05:12 Discharge ordered by . [facility] 05:21 Discharged to home ambulatory. vc1 05:21 Condition: good 05:21 Discharge instructions given to patient, Instructed on discharge instructions, follow up and referral plans. medication usage, Demonstrated understanding of instructions, follow-up care, medications. 05:22 Patient left the ED. vc1 Signatures: Dispatcher [employer] Brady Benito, RN RN Samia Pierce Neil Sanchez MD MD 7 Kenia Brink Tiffany 5 Jaylin Kearney RN RN vc1
--- NOTE | 2022-04-18 05:13 | EDPHYS ---
Physician Documentation [facility] Name: Juju Orozco Age: 51 yrs Sex: Female : 1970 Arrival Date: 04/17/2022 Time: 23:34 Bed 14 Private MD: DEVAN Physician Neil Agosto HPI: 04/18 01:10 This 51 yrs old Female presents to ER via Ambulatory with complaints of Nausea.mh7 01:10 The patient presents with a history of heart racing. mh7 01:10 Context: The symptoms occur at rest. Onset: The symptoms/episode began/occurred mh7 yesterday. Duration: The patient or guardian reports multiple episodes, that are intermittent, that wax and wane, with no pattern. Modifying factors: The symptoms are aggravated by nothing. The symptoms are alleviated by nothing. Associated signs and symptoms: Pertinent positives: lightheadedness, nausea, Pertinent negatives: anxiety, chest pain, cough, fever, SOB, syncope, near-syncope, unusual stressors, vertigo, vomiting. Severity of symptoms: At their worst the symptoms were moderate yesterday, in the emergency department the symptoms have improved moderately. The patient has experienced similar episodes in the past, several times. MANAGER PLACEMENT: 04/17 23:39 LMP N/A - Post-menopause tw Historical: - Allergies: 23:39 Latex, Natural Rubber; tw5 - Home Meds: 04/18 05:22 alprazolam 1 mg Oral tab 1 tab nightly [Active]; clonidine HCl 0.1 mg Oral tab vc1 [Active]; levothyroxine oral [Active]; lisinopril 40 mg Oral tab 1 tab once daily for Hypertension [Active]; - PMHx: 04/17 23:39 Anxiety; Hypertension; Hypothyroidism; Migraines; tw5 - PSHx: 23:39 section; tw5 - Immunization history:: Flu vaccine is not up to date. - Social history:: Smoking status: Patient denies any tobacco usage or history of. ROS: 04/18 01:10 Constitutional: Negative for fever, chills, and weight loss, Eyes: Negative for injury, mh7 pain, redness, and discharge, ENT: Negative for injury, pain, and discharge, Neck: Negative for injury, pain, and swelling, Respiratory: Negative for shortness of breath, cough, wheezing, and pleuritic chest pain. Back: Negative for injury and pain, : Negative for injury, bleeding, discharge, and swelling, MS/Extremity: Negative for injury and deformity, Skin: Negative for injury, rash, and discoloration, Neuro: Negative for headache, weakness, numbness, tingling, and seizure, Psych: Negative for depression, anxiety, suicide ideation, homicidal ideation, and hallucinations, Allergy/Immunology: Negative for hives, rash, and allergies, Endocrine: Negative for neck swelling, polydipsia, polyuria, polyphagia, and marked weight changes, Hematologic/Lymphatic: Negative for swollen nodes, abnormal bleeding, and unusual bruising. Abdomen/GI: Negative for abdominal pain, diarrhea, constipation, abdominal cramps, abdominal distension, anorexia, dysphagia, hematemesis, black/tarry stool, rectal pain, rectal bleeding, bowel incontinence, flatulence. Exam: 01:10 Constitutional: This is a well developed, well nourished patient who is awake, alert, mh7 and in no acute distress. Head/Face: Normocephalic, atraumatic. Eyes: Pupils equal round and reactive to light, extra-ocular motions intact. Lids and lashes normal. Conjunctiva and sclera are non-icteric and not injected. Cornea within normal limits. Periorbital areas with no swelling, redness, or edema. Neck: Trachea midline, no thyromegaly or masses palpated, and no cervical lymphadenopathy. Supple, full range of motion without nuchal rigidity, or vertebral point tenderness. No Meningismus. Chest/axilla: Normal chest wall appearance and motion. Nontender with no deformity. No lesions are appreciated. Cardiovascular: Regular rate and rhythm with a normal S1 and S2. No gallops, murmurs, or rubs. Normal PMI, no JVD. No pulse deficits. Respiratory: Lungs have equal breath sounds bilaterally, clear to auscultation and percussion. No rales, rhonchi or wheezes noted. No increased work of breathing, no retractions or nasal flaring. Abdomen/GI: Soft, non-tender, with normal bowel sounds. No distension or tympany. No guarding or rebound. No evidence of tenderness throughout. Back: No spinal tenderness. No costovertebral tenderness. Full range of motion. Skin: Warm, dry with normal turgor. Normal color with no rashes, no lesions, and no evidence of cellulitis. MS/ Extremity: Pulses equal, no cyanosis. Neurovascular intact. Full, normal range of motion. Neuro: Awake and alert, GCS 15, oriented to person, place, time, and situation. Cranial nerves II-XII grossly intact. Motor strength 5/5 in all extremities. Sensory grossly intact. Cerebellar exam normal. Normal gait. Psych: Awake, alert, with orientation to person, place and time. Behavior, mood, and affect are within normal limits. Vital Signs: 04/17 23:35 BP 175 / 95; Pulse 83; Resp 18; Temp 97.6; Pulse Ox 100% on R/A; Weight 99.79 kg; tw5 Height 5 ft. 5 in. (165.10 cm); Pain 0/10; 04/18 01:00 BP 123 / 75; Pulse 61; Resp 18; Pulse Ox 95% ; vc1 02:00 BP 109 / 77; Pulse 60; Resp 18; Pulse Ox 93% ; vc1 03:00 BP 109 / 72; Pulse 56; Resp 15; Pulse Ox 94% ; vc1 05:20 BP 109 / 72; Pulse 56; Resp 16; Pulse Ox 95% on R/A; vc1 04/17 23:35 Body Mass Index 36.61 (99.79 kg, 165.10 cm) tw5 MDM: 05:10 Differential diagnosis: arrythmia, dehydration, stress disorder. Data reviewed: vital 7 signs, nurses notes, old medical records, lab test result(s), cardiac enzymes, CBC, electrolytes, EKG, radiologic studies, CT scan, plain films. Data interpreted: Pulse oximetry: on room air is 100 %. Interpretation: normal. 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 Response to treatment: the patient's symptoms have resolved after treatment, the patient's blood pressure is in an acceptable range, mental status has returned to baseline, the patient no longer shows bradycardia, the patient is not short of breath, the patient is not tachycardic, the patient's pain is gone, the patient's temperature has normalized. 05:12 Patient medically screened. [facility] 04/17 23:45 Order name: Basic Metabolic Panel; Complete Time: 01:15 4 04/17 23:45 Order name: CBC with Diff; Complete Time: 01:15 4 04/17 23:45 Order name: Troponin HS; Complete Time: 01:15 4 04/18 00:09 Order name: Urine Dipstick-Ancillary; Complete Time: 01:15 EDMS 04/18 01:28 Order name: D-Dimer; Complete Time: 02:47 [facility] 04/18 01:28 Order name: TSH; Complete Time: 02:47 [facility] 04/17 23:45 Order name: XRAY Chest (1 view) [facility] 04/17 23:45 Order name: EKG; Complete Time: 23:[address] [facility] 04/17 23:45 Order name: Cardiac monitoring; Complete Time: 01:[address] [facility] 04/17 23:45 Order name: EKG - Nurse/Tech; Complete Time: 01:[address] [facility] 04/17 23:45 Order name: IV Saline Lock; Complete Time: :[address] [facility] 04/17 23:45 Order name: Labs collected and sent; Complete Time: :59 4 04/18 03:00 Order name: CT Chest For PE Angio [facility] 04/17 23:45 Order name: O2 Per Protocol; Complete Time: 01:[address] [facility] 04/17 23:45 Order name: O2 Sat Monitoring; Complete Time: :[address] [facility] 04/17 23:48 Order name: Urine Dipstick-Ancillary (obtain specimen); Complete Time: 00:21 tw5 Administered Medications: 04/17 23:46 Drug: Ondansetron 4 mg Route: PO; tw5 Disposition Summary: 04/18/22 05:12 Discharge Ordered Location: Home [facility] Problem: an acute exacerbation [facility] Symptoms: have improved [facility] Condition: Stable [facility] Diagnosis - Palpitations [facility] Followup: [facility] - With: Private Physician - When: 1 - 2 days - Reason: Worsening of condition, Recheck today's complaints, Continuance of care, Re-evaluation by your physician Followup: [facility] - With: Flaquito Coto MD - When: 1 - 2 days - Reason: Worsening of condition, Recheck today's complaints Discharge Instructions: - Discharge Summary Sheet [facility] - Palpitations, [id number] [facility] Forms: - Medication Reconciliation Form [facility] - Thank You Letter [facility] - Antibiotic Education [facility] - Prescription Opioid Use [facility] Signatures: Dispatcher [employer] EDSixto Arboleda ds4 Neil Agosto MD MD [facility] Gaby Pichardo 5 Jaylin Kearney RN RN vc1
[2022-04-18 06:23] VITALS: TEMP 97.6
[2022-04-18 06:29] VITALS: BP 109/72
[2022-04-18 06:35] VITALS: O2SAT 95
--- NOTE | 2022-04-18 20:55 | RAD REPORT ---
EXAM DESCRIPTION: RAD - Chest Single View - 04/18/2022 12:37 am CLINICAL HISTORY: CHEST PAIN COMPARISON: None. FINDINGS: Single frontal radiograph view of the chest. Cardiomediastinal silhouette: Normal size and contour. Lungs: No consolidation, pneumothorax, or pleural effusion. Bones: No acute osseous abnormality. Leads overlie the chest. Upper abdomen: No abnormality identified. IMPRESSION: 1. No acute pulmonary process identified. Electronically signed by: Mykel Osullivan 04/18/2022 12:52 AM CDT Due to temporary technical issues with the PACS/Fluency reporting system, reports are being signed by the in house radiologists without review as a courtesy to insure prompt reporting. The interpreting radiologist is fully responsible for the content of the report.
--- NOTE | 2022-04-18 21:42 | RAD REPORT ---
EXAM DESCRIPTION: CT - Chest For Pe Angio - 04/18/2022 6:46 am CLINICAL HISTORY: The patient is 51 years old and is Female; palpitations TECHNIQUE: Axial computed tomographic angiography images of the chest with intravenous contrast. S agittal and coronal reformatted images were created and reviewed. This CT exam was performed using one or more of the following dose reduction techniques: automated exposure control, adjustment of t he mA and/or kV according to patient size, and/or use of iterative reconstruction technique. MIP re constructed images were created and reviewed. COMPARISON: No relevant prior studies available. FINDINGS: Pulmonary arteries: No PE identified. Aorta: No acute findings. No thoracic aortic aneurysm. Lungs: No pulmonary consolidation or groundglass opacities to suggest pneumonia. Pleural space: No pleural effusion or pneumothorax. Heart: Unremarkable. No cardiomegaly. No significant pericardial effusion. No evidence of R V dysfunction. Mediastinum: No pneumomediastinum. Bones/joints: Mild scoliosis. Multilevel vertebral osteophytes. No acute fracture visualized. No dislocation. Soft tissues: Unremarkable. Lymph nodes: Unremarkable. No pathologically enlarged lymph nodes. IMPRESSION: No PE identified. Electronically signed by: Ruby Kennedy MD 04/18/2022 4:31 AM CDT Due to temporary technical issues with the PACS/Fluency reporting system, reports are being signed by the in house radiologists without review as a courtesy to insure prompt reporting. The interpreting radiologist is fully responsible for the content of the report.
--- NOTE | 2022-04-19 16:57 | EKG ---
Test Date: 2022-04-17 Test Time: 23:56:45 Appliance Mechanic: ANUSHKA MEASUREMENT RESULTS: Intervals: Rate: 73 FL: 156 QRSD: 82 QT: 412 QTc: 453 [place]: P: 69 FL: 156 QRS: 67 T: 83 INTERPRETIVE STATEMENTS: Normal sinus rhythm Normal ECG Compared to ECG 04/12/2019 11:02:26 Sinus arrhythmia no longer present Prolonged QT interval no longer present Electronically Signed On 04-19-22 16:56:56 CDT by Cristobal Tamez
== END 2022-04-18 05:22 | disposition home or self-care (01) ==
LOC: ER 23:26
DX: R00.2 Palpitations (principal); R11.0 Nausea; I10 Essential (primary) hypertension; F41.9 Anxiety disorder, unspecified; E03.9 Hypothyroidism, unspecified; Z91.040 Latex allergy status; Z91.048 Other nonmedicinal substance allergy status
CPT/HCPCS: 93005; 85025; 80048; 36415; 85379; 84443; 81003; 84484; 71275; 71045; 99284; Q9967; Q0162

== ENCOUNTER 2023-01-26 21:26 | Observation (INO) | payer BC ==
--- OUTSIDE RECORDS SUMMARY | 2023-01-26 21:29 | XMS REPORT | Continuity of Care Document ---
:1970 Author Organization [facility] t Address [address] [facility] [address] [place] [id number] Care Team Providers Name Role Phone Lab, Adc Fam Pob I Attending Clinician Unavailable Haleigh Francis Attending Clinician HALEIGH FERNANDEZ Attending Clinician Unavailable Peace Griggs Attending Clinician Payers Payer Name Policy Type Policy Number Effective Date Expiration Date S ource Problems This patient has no known problems. Allergies, Adverse Reactions, Alerts Allergy Allergy Status Severity Reaction(s) Onset Inactive Treating Comm ents Source Name Type Date Date Clinician NO KNOWN Drug Active [facility] ALLERGIE Class ity of [facility] Social History Social Habit Start Date Stop Date Quantity Comments Source Exposure to Yes [facility] SARS-CoV-2 (event) Medica l Branch Sex Assigned At [birth year] [facility] 00:00:00 00:00:00 [facility] Smoking Status Start Date Stop Date Source Unknown if ever smoked [facility] Medications Ordered Filled Start Stop Current Ordering [...] Yes 300mg Take 1 Uni vers (CLEOCIN) 7- capsule by ity of 300 mg 00:00: mouth 3 [place] capsule 00 (three) Medical times Branch daily. Procedures This patient has no known procedures. Encounters Start End Encounter Admission Attending Care Care Encounter Source Date/Time Date/Time Type Type Clinicians Facility Department ID 2021-04-25 2021-04-25 [facility] 1.2. [id number] Univers 15:37:23 15:57:23 [id number] [facility] [place] [id number] Fortunato as Professio [phone] Dc dical nal [address] [place] [address] Office [address] One 2021-04-25 2021-04-25 Outpatient R JIM [facility] [id number] Univers 15:40:00 15:40:00 HALEIGH ity o f [facility] 2021-01-01 2021-01-01 Laboratory Lab, [facility] [id number]. [id number] Univers 15:35:50 15:55:50 [facility] [id number] ity of [place] [id number] Fortunato as Professio [phone] Dc dic[address] Office Building [address] 2021-01-01 2021-01-01 Outpatient R [facility] [id number] Univers 15:40:00 15:40:00 ity of [facility] Results This patient has no known results.
--- NOTE | 2023-01-26 22:26 | RAD REPORT ---
EXAM DESCRIPTION: Charmaine Single View01/26/2023 10:15 pm CLINICAL HISTORY: Chest pain COMPARISON: 2021 FINDINGS: The lungs appear clear of acute infiltrate. The heart is normal size IMPRESSION: No acute abnormalities displayed
[2023-01-26 22:40] LABS: Hematocrit 39.2 % (36.0-45.0); MPV 8.7 fL (7.6-11.3); RBC Red Blood Cell Count 4.51 M/uL (3.86-4.86)
[2023-01-26 22:41] LABS: Protime INR 0.92
[2023-01-26 22:45] LABS: ALT/SGPT 31 U/L (13-56); AST/SGOT 11 U/L (15-37); Albumin 3.6 g/dL (3.4-5.0); Alkaline Phosphatase 87 U/L (45-117); BUN Blood Urea Nitrogen 12 mg/dL (7-18); Bicarbonate 29 mEq/L (21-32); Bilirubin Total 0.2 mg/dL (0.2-1.0); Glomerular Filtration Rate 85 ml/min (=/>90); Glucose Level 112 mg/dL (74-106); Magnesium 1.9 mg/dL (1.6-2.4); NT PRO-BNP 54 pg/mL (<125); Potassium 3.1 mEq/L (3.5-5.1); Protein, Total 7.3 g/dL (6.4-8.2); Sodium Level 139 mEq/L (136-145); Troponin High Sensitivity 3.6 pg/mL (<58.9)
[2023-01-26 22:47] LABS: Bilirubin Direct < 0.1 mg/dL (0-0.2)
[2023-01-26] MEDS ORDERED: ASPIRIN EC 81 MG TAB PO ONE (22:54)
[2023-01-26] MEDS ORDERED: NITROGLYCERIN 0.4 MG/TAB SL ONE (22:54)
[2023-01-26] MEDS ORDERED: POTASSIUM 25 MEQ EFFERV TAB ONE (23:15)
--- NOTE | 2023-01-27 00:48 | ER ---
Nurse's Notes [facility] Name: Juju Orozco Age: 52 yrs Sex: Female : 1970 Arrival Date: 01/26/2023 Time: 21:26 Bed 6 Private MD: Diagnosis: Chest pain, unspecified Presentation: 01/26 21:35 Chief complaint: Patient states: "for the past week I've been sick and had a bad cough as6 but the last several days I have been feeling real faint like I'm going to pass out". Coronavirus screen: At this time, the client does not indicate any symptoms associated with coronavirus-19. Ebola Screen: No symptoms or risks identified at this time. Initial Sepsis Screen: Does the patient meet any 2 criteria? No. Patient's initial sepsis screen is negative. Does the patient have a suspected source of infection? No. Patient's initial sepsis screen is negative. Risk Assessment: Do you want to hurt yourself or someone else? Patient reports no desire to harm self or others. Onset of symptoms is unknown. 21:35 Method Of Arrival: Ambulatory as6 21:35 Acuity: TARIK 3 as6 Triage Assessment: 21:42 General: Appears uncomfortable, Behavior is calm, cooperative. Pain: Complains of pain as6 in chest Quality of pain is described as pressure. Cardiovascular: Reports chest pain. DIRECTOR PEOPLESOFT: 21:40 LMP N/A - Post-menopause as6 Historical: - Allergies: 21:39 Latex, Natural Rubber; as6 - PMHx: 21:39 Anxiety; Hypertension; Hypothyroidism; Migraines; as6 - PSHx: 21:39 section; as6 - Immunization history:: Client reports having NOT received the Covid vaccine. - Social history:: Smoking status: Patient denies any tobacco usage or history of. Screenin:52 [facility] ED Fall Risk Assessment (Adult) History of falling in the last 3 months, kl including since admission No falls in past 3 months (0 pts) Confusion or Disorientation Yes (5 pts) Intoxicated or Sedated No (0 pts) Impaired Gait No (0 pts) Mobility Assist Device Used No (0 pt) Altered Elimination No (0 pt) Score/Fall Risk Level 3 or more points = High Risk Oriented to surroundings, Maintained a safe environment, Educated pt \\T\\ family on fall prevention, incl call for assistance when getting out of bed, Provided non-skid footwear, Hourly rounding (assess needs \\T\\ fall precautionary measures) done, Remained with patient while ambulating. Abuse screen: Denies threats or abuse. Nutritional screening: No deficits noted. Tuberculosis screening: No symptoms or risk factors identified. Assessment: 21:55 General: Appears in no apparent distress. comfortable, Behavior is calm, cooperative. kl Neuro: Level of Consciousness is awake, alert, obeys commands, Oriented to person, place, time, situation, Digital Sales Manager are equal bilaterally Moves all extremities. Full function Gait is steady, Speech is normal, Facial symmetry appears normal, Pupils are PERRLA. Neuro: Reports dizziness, and concentration difficulty. Cardiovascular: No deficits noted. Respiratory: No deficits noted. Airway is patent Trachea midline Respiratory effort is even, unlabored. GI: No deficits noted. No signs and/or symptoms were reported involving the gastrointestinal system. : No deficits noted. No signs and/or symptoms were reported regarding the genitourinary system. 21:55 Pain: Complains of pain in chest Pain does not radiate. Quality of pain is described as kl pressure, Pain began gradually. 23:53 Reassessment: Patient appears in no apparent distress at this time. Patient and/or kl family updated on plan of care and expected duration. Pain level reassessed. Patient is alert, oriented x 3, equal unlabored respirations, skin warm/dry/pink. Patient states feeling better. Patient states symptoms have improved. Vital Signs: 21:35 BP 159 / 95; Pulse 68; Resp 18 S; Temp 98.2(TE); Pulse Ox 97% on R/A; Weight 106.59 kg as6 (R); Height 5 ft. 5 in. (R); Pain 6/10; 22:30 BP 126 / 80; Pulse 64; Resp 20; Pulse Ox 97% ; ll3 23:30 BP 118 / 71; Pulse 61; Resp 19; Pulse Ox 96% ; ll3 05 01:05 BP 135 / 77; Pulse 65; Resp 18; Temp 98(TE); Pulse Ox 98% on R/A; kl 01/26 21:35 Body Mass Index 39.11 (106.59 kg, 165.1 cm) as6 01/26 21:35 Pain Scale: Adult as6 ED Course: 01/26 21:27 Patient arrived in ED. ag3 21:34 Oni Mann PA is PHCP. cp 21:34 Oni Yanes MD is Attending Physician. cp 21:39 Triage completed. as6 21:40 Arm band placed on. as6 21:51 Inserted saline lock: 20 gauge in right antecubital area, using aseptic technique. kl Blood collected. 21:55 Patient has correct armband on for positive identification. Placed in gown. Bed in low kl position. Call light in reach. Side rails up X2. Client placed on continuous cardiac and pulse oximetry monitoring. NIBP monitoring applied. 22:16 Influenza Screen (a \\T\\ B) Sent. kl 22:16 COVID-19 SARS RT PCR Sent. kl 22:16 Basic Metabolic Panel Sent. kl 22:16 CBC with Diff Sent. kl 22:16 D-Dimer Sent. kl 22:16 LFT's Sent. kl 22:16 Magnesium Sent. kl 22:16 NT PRO-BNP Sent. kl 22:16 PT-INR Sent. kl 22:16 Troponin HS Sent. kl 22:17 XRAY Chest (1 view) In Process Unspecified. EDMS 22:36 Influenza Screen (a \\T\\ B) Sent. kl 22:36 COVID-19 SARS RT PCR Sent. kl 22:36 Basic Metabolic Panel Sent. kl 22:36 CBC with Diff Sent. kl 22:36 D-Dimer Sent. kl 22:36 LFT's Sent. kl 22:36 Magnesium Sent. kl 22:36 NT PRO-BNP Sent. kl 22:36 PT-INR Sent. kl 22:36 Troponin HS Sent. 01/27 00:08 Chest For Pe Angio In Process Unspecified. EDMS 00:47 Sergio Cameron MD is Hospitalizing Provider. cp 01:06 No provider procedures requiring assistance completed. Patient admitted, IV remains in kl place. Patient maintains SpO2 saturation greater than 95% on room air. Administered Medications: 01/26 22:52 Drug: Nitroglycerin Sublingual 0.4 mg Route: Sublingual; kl 23:20 Follow up: Response: Pain is decreased kl 22:52 Drug: Aspirin PO Chewable Tablet 324 mg Route: PO; kl 23:20 Follow up: Response: No adverse reaction kl 23:20 Drug: Potassium PO Effervescent Tablet 50 mEq Route: PO; kl 01/27 00:58 Drug: morphine IVP or IV 2 mg Route: IVP; Infused Over: 4 mins; Site: right antecubital;kl 01:05 Follow up: Response: No adverse reaction; Pain is decreased kl 00:58 Drug: NS 0.9% IV 500 ml Route: IV; Rate: bolus; Site: right antecubital; kl 00:58 Drug: Potassium PO Effervescent Tablet 25 mEq Route: PO; kl 00:59 Not Given (Patient Refused): morphine IVP or IV 2 mg IVP once over 4 mins kl Medication: 01:08 VIS not applicable for this client. kl Outcome: 00:47 Decision to Hospitalize by Provider. cp 01:06 Admitted to Med/surg 01:06 Condition: good 01:06 Discharge instructions given to patient, Instructed on the need for admit, Demonstrated understanding of instructions. 01:26 Patient left the ED. Signatures: Dispatcher [employer] EDMS Peace Franks RN RN Oni Sterling PA PA Tala Nolan 3 Jeramie Galloway RN RN as6 Carola Kumari RN RN ll3
--- NOTE | 2023-01-27 00:48 | EDPHYS ---
Physician Documentation [facility] Name: Juju Orozco Age: 52 yrs Sex: Female : 1970 Arrival Date: 01/26/2023 Time: 21:26 Bed 6 Private MD: DEVAN Physician Oni Yanes HPI: 01/26 22:05 This 52 yrs old Female presents to ER via Ambulatory with complaints of Chest cp Pressure. 22:05 The patient or guardian reports chest pain that is located primarily in the anterior cp chest wall. 22:05 Onset: today. The pain does not radiate. Associated signs and symptoms: Pertinent cp positives: cough, near-syncope, shortness of breath. The chest pain is described as a heaviness. Duration: The patient or guardian reports a single episode, that is still ongoing, and unchanged. 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 - Social history:: Smoking status: Patient denies any tobacco usage or history of. ROS: 22:10 Constitutional: Negative for body aches, chills, fever, poor PO intake. cp 22:10 Eyes: Negative for injury, pain, redness, and discharge. cp 22:10 ENT: Negative for drainage from ear(s), ear pain, sore throat, difficulty swallowing, difficulty handling secretions. 22:10 Cardiovascular: Positive for chest pain, Negative for edema, palpitations. 22:10 Respiratory: Positive for cough, with no reported sputum, Negative for shortness of breath, wheezing. 22:10 Abdomen/GI: Negative for abdominal pain, vomiting, diarrhea, constipation. 22:10 Back: Negative for pain at rest, pain with movement, radiated pain. 22:10 Neuro: Negative for altered mental status, dizziness, headache, numbness, syncope, weakness. 22:10 All other systems are negative. Exam: 22:07 ECG was reviewed by the Attending Physician. cp 22:15 Constitutional: The patient appears in no acute distress, alert, awake, cp non-diaphoretic, non-toxic, well developed, well nourished, obese. 22:15 Head/Face: Normocephalic, atraumatic. cp 22:15 Eyes: Periorbital structures: appear normal, Conjunctiva: normal, no exudate, no cp injection, Sclera: no appreciated abnormality, Lids and lashes: appear normal, bilaterally. 22:15 ENT: External ear(s): are unremarkable, Nose: is normal, Mouth: Lips: moist, Oral cp mucosa: pink and intact, moist, Posterior pharynx: is normal, airway is patent, no erythema, no exudate. 22:15 Neck: ROM/movement: is normal, is supple, without pain, no range of motions limitations. 22:15 Chest/axilla: Inspection: normal. 22:15 Cardiovascular: Rate: normal, Rhythm: regular, Edema: is not appreciated, JVD: is not appreciated. 22:15 Respiratory: the patient does not display signs of respiratory distress, Respirations: normal, no use of accessory muscles, no retractions, labored breathing, is not present, Breath sounds: are clear throughout, no decreased breath sounds, no stridor, no wheezing. 22:15 Abdomen/GI: Inspection: obese Palpation: abdomen is soft and non-tender, in all quadrants. 22:15 Back: pain, is absent, ROM is normal. 22:15 Neuro: Orientation: to person, place \T\ time. Mentation: is normal, Cerebellar function: is grossly normal, Motor: moves all fours, strength is normal, Sensation: is normal. Vital Signs: 21:35 BP 159 / 95; Pulse 68; Resp 18 S; Temp 98.2(TE); Pulse Ox 97% on R/A; Weight 106.59 kg as6 (R); Height 5 ft. 5 in. (R); Pain 6/10; 22:30 BP 126 / 80; Pulse 64; Resp 20; Pulse Ox 97% ; ll3 23:30 BP 118 / 71; Pulse 61; Resp 19; Pulse Ox 96% ; ll3 05 01:05 BP 135 / 77; Pulse 65; Resp 18; Temp 98(TE); Pulse Ox 98% on R/A; kl 01/26 21:35 Body Mass Index 39.11 (106.59 kg, 165.1 cm) as6 01/26 21:35 Pain Scale: Adult as6 MDM: 01/26 21:44 Patient medically screened. cp 01/27 00:45 The patient was given aspirin in the Emergency Department. cp 00:45 Differential diagnosis: abnormal EKG, acute myocardial infarction, pleurisy, pneumonia, cp pneumothorax, pulmonary embolus, stable angina, thoracic aortic disection, unstable angina. Data reviewed: vital signs, nurses notes, lab test result(s), EKG, radiologic studies, CT scan, plain films. Consideration of Admission/Observation Patient was admitted/placed on observation. Management of patient was discussed with the following: Primary Care Provider: DR Cameron will admit after discussion. 01/26 22:03 Order name: Basic Metabolic Panel; Complete Time: 22:58 cp 01/26 22:58 Interpretation: Normal except: K 3.1; CL 108; GLUC 112; GFR 85. cp 01/26 22:03 Order name: CBC with Diff; Complete Time: 22:58 cp 01/26 22:03 Order name: D-Dimer; Complete Time: 22:58 cp 01/26 22:03 Order name: LFT's; Complete Time: 22:58 cp 01/26 22:58 Interpretation: Normal except: AST 11; GLOB 3.7; A/G 1.0. cp 01/26 22:03 Order name: Magnesium; Complete Time: 22:58 cp 01/26 22:03 Order name: NT PRO-BNP; Complete Time: 22:58 cp 01/26 22:03 Order name: PT-INR; Complete Time: 22:58 cp 01/26 22:03 Order name: Troponin HS; Complete Time: 22:58 cp 01/26 23:36 Interpretation: Troponin HS 3.6; Reviewed. cp 01/26 22:03 Order name: COVID-19 SARS RT PCR; Complete Time: 23:36 cp 01/26 22:03 Order name: Influenza Screen (a \T\ B); Complete Time: 23:36 cp 01/27 00:56 Order name: Basic Metabolic Panel EDMS 01/27 00:56 Order name: Basic Metabolic Panel EDMS 01/27 00:56 Order name: CBC with Automated Diff EDMS 01/27 00:56 Order name: CBC with Automated Diff EDMS 01/27 00:56 Order name: Troponin High Sensitivity EDMS 01/27 00:56 Order name: Troponin High Sensitivity EDMS 01/27 00:56 Order name: Troponin High Sensitivity EDMS 01/27 00:56 Order name: Troponin High Sensitivity EDMS 01/26 22:03 Order name: XRAY Chest (1 view); Complete Time: 22:58 cp 01/26 23:44 Order name: Chest For Pe Angio EDMS 01/26 22:03 Order name: EKG; Complete Time: 22:04 cp 01/27 00:56 Order name: Regular EDMS 01/27 00:56 Order name: EKG Electrocardiogram EDMS 01/27 00:56 Order name: EKG Electrocardiogram EDMS 01/27 00:56 Order name: EKG Electrocardiogram EDMS 01/27 00:56 Order name: EKG Electrocardiogram EDMS 01/26 22:03 Order name: Cardiac monitoring; Complete Time: 22:16 cp 01/26 22:03 Order name: EKG - Nurse/Tech; Complete Time: 22:16 cp 01/26 22:03 Order name: IV Saline Lock; Complete Time: 22:16 cp 01/26 22:03 Order name: Labs collected and sent; Complete Time: 22:16 cp 01/26 22:03 Order name: O2 Per Protocol; Complete Time: 22:16 cp 01/26 22:03 Order name: O2 Sat Monitoring; Complete Time: 22:16 cp EC/09 22:07 Rate is 61 beats/min. Rhythm is regular. MA interval is normal. QRS interval is normal. cp QT interval is normal. Interpreted by me. Reviewed by me. Administered Medications: 22:52 Drug: Nitroglycerin Sublingual 0.4 mg Route: Sublingual; kl 23:20 Follow up: Response: Pain is decreased kl 22:52 Drug: Aspirin PO Chewable Tablet 324 mg Route: PO; kl 23:20 Follow up: Response: No adverse reaction kl 23:20 Drug: Potassium PO Effervescent Tablet 50 mEq Route: PO; kl 01/27 00:58 Drug: morphine IVP or IV 2 mg Route: IVP; Infused Over: 4 mins; Site: right antecubital;kl 01:05 Follow up: Response: No adverse reaction; Pain is decreased kl 00:58 Drug: NS 0.9% IV 500 ml Route: IV; Rate: bolus; Site: right antecubital; kl 00:58 Drug: Potassium PO Effervescent Tablet 25 mEq Route: PO; kl 00:59 Not Given (Patient Refused): morphine IVP or IV 2 mg IVP once over 4 mins kl Disposition Summary: 01/27/23 00:47 Hospitalization Ordered Hospitalization Status: Observation cp Provider: Sergio Cameron cp Location: Telemetry/MedSurg (observation) cp Condition: Stable cp Problem: new cp Symptoms: have improved cp Bed/Room Type: Standard cp Room Assignment: 209(01/27/23 00:53) mw Diagnosis - Chest pain, unspecified cp Forms: - Medication Reconciliation Form cp - SBAR form cp Signatures: Dispatcher [employer] EDPeace Meeks RN RN kl Webb, Martha, RN RN mw Page, Corey, PA PA cp Slawson, Ashby, RN RN as6 Corrections: (The following items were deleted from the chart) 00:08 01/26 23:57 Chest For PE Angio+CT.RAD.BRZ ordered. [facility] EDVT 01/27 00:53 00:47 cp mw
[2023-01-27] MEDS ORDERED: ONDANSETRON 4 MG/2 ML VIAL IV PRN (00:51)
[2023-01-27] MEDS ORDERED: NA CHLORIDE 0.9% 500 ML ONE (01:00)
[2023-01-27] MEDS ORDERED: MORPHINE 2 MG/ML SYR ONE (01:00)
[2023-01-27 05:50] VITALS: BMI 38.8
[2023-01-27] MEDS: ASPIRIN EC 81 MG TAB PO SCH (08:44)
--- NOTE | 2023-01-27 11:59 | CON ---
Date of Consultation: 01/27/2023 Reason For Consultation: Atypical chest pain. History Of Present Illness: Ms. Orozco is 52. Has a history of anxiety, migraine, hypertension, hypothyroidism. She came in with substernal chest pressure, mid-epigastric, nonexertional. No naus ea, vomiting, diaphoresis, PND, orthopnea, pedal edema, palpitation, or syncope. Pain occasionally r adiates to the right arm with some numbness, sometimes close to the left arm with some numbness. Wor kup so far has been negative. She does have a family history of heart disease. Allergies: INCLUDE LATEX. Home Medications: As listed. Review of Systems: Negative. Social History: Negative. Physical Examination: Vital Signs: Stable, afebrile. HEENT: Negative. Neck: Supple with no bruit. Chest: Clear. Cardiac: Revealed a regular rhythm and rate. No murmurs, gallops, or rubs. Abdomen: Benign. Extremities: Revealed no clubbing, cyanosis, or edema. Diagnostic Data: Within normal limit. Normal chest x-ray. Normal troponin. Normal BNP. Normal EK G. Impression And Plan: Atypical chest pain. I think it is mostly gastroesophageal in nature. Echocar diogram is pending. I will plan outpatient Lexiscan at her convenience, but she can go home after echo today. Continue treatment for her other problems including anxiety, migraine, hypertension, and hypothyroidism. WHITLEY/SHELTON Voice ID: [id number] Report ID: [id number]
--- NOTE | 2023-01-27 12:42 | RAD REPORT ---
EXAM DESCRIPTION: CT - Chest For Pe Angio - 01/27/2023 6:31 am CLINICAL HISTORY: CHEST PAIN. COMPARISON: CTA chest from April 18, 2022. TECHNIQUE: CTA of the chest was performed following intravenous administration of iodinated contrast . Axial soft tissue and lung window, and coronal and sagittal soft tissue window reconstructions were created and sent to PACS. 3D postprocessing was performed on an independent workstation, with images sent to PACS for subsequen t review. This exam was performed according to our departmental dose-optimization program, which includes autom ated exposure control, adjustment of the mA and/or kV according to patient size and/or use of iterati ve reconstruction technique. FINDINGS: Vascular: The pulmonary arteries are well-opacified to the segmental level. No CT evidence of acute pulmonary thromboembolism. No evidence of aortic aneurysm or dissection. Lungs and pleura: No pulmonary consolidation. No pleural effusion. No pneumothorax. Mediastinum and neck: No mediastinal lymphadenopathy by CT size criteria. Unremarkable appearance of the thyroid gland. Cardiac: No cardiomegaly or pericardial effusion. Abdomen: Diffuse hepatic steatosis. Musculoskeletal: No concerning osseous abnormality. IMPRESSION: 1. No CTA evidence of acute pulmonary thromboembolism. 2. No acute findings. Electronically signed by: Chastity Gil MD 01/27/2023 12:28 AM CDT Due to temporary technical issues with the PACS/Fluency reporting system, reports are being signed by the in house radiologists without review as a courtesy to insure prompt reporting. The interpreting radiologist is fully responsible for the content of the report.
[2023-01-27] MEDS ORDERED: POTASSIUM 25 MEQ EFFERV TAB PO ONE (13:39)
--- NOTE | 2023-01-27 15:58 | EKG ---
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
[2023-01-27] MEDS: ACETAMINOPHEN 500 MG TAB PO PRN (22:24)
[2023-01-28 02:55] LABS: Absolute Lymphocytes (CBC) 1.9 K/uL (0.7-4.9); Hematocrit 39.3 % (36.0-45.0); Lymphocytes % 29.5 % (15.3-44.8); MCV 88.3 fL (80-100); MPV 8.6 fL (7.6-11.3); RBC Red Blood Cell Count 4.45 M/uL (3.86-4.86)
--- NOTE | 2023-01-28 07:28 | ECHO ---
HEIGHT: 5 ft 5 in WEIGHT: 233 lb 6.4 oz DATE OF STUDY: 01/27/[address]: Flaquito Coto MD 2-DIMENSIONAL: YES M.MODE: YES DOPPLER: YES COLOR FLOW: YES TDS: NO PORTABLE: YES DEFINITY: NO BUBBLE STUDY: NO DIAGNOSIS: CHEST PAIN CARDIAC HISTORY: CATHERIZATION: NO SURGERY: NO PROSTHETIC VALVE: NO PACEMAKER: NO MEASUREMENTS (cm) DIASTOLIC (NORMALS) SYSTOLIC (NORMALS) IVSd 1.1 (0.6-1.2) LA Diam 3.2 (1.9-4.0) LVEF 63% LVIDd 5.0 (3.5-5.7) LVIDs 3.3 (2.0-3.5) %FS 34% LVPWd 1.1 (0.6-1.2) Ao Diam 2.6 (2.0-3.7) 2 DIMENSIONAL ASSESSMENT: RIGHT ATRIUM: NORMAL LEFT ATRIUM: NORMAL RIGHT VENTRICLE: NORMAL LEFT VENTRICLE: NORMAL TRICUSPID VALVE: NORMAL MITRAL VALVE: NORMAL PULMONIC VALVE: NORMAL AORTIC VALVE: NORMAL PERICARDIAL EFFUSION: NONE AORTIC ROOT: NORMAL LEFT VENTRICULAR WALL MOTION: NORMAL. DOPPLER/COLOR FLOW: NORMAL. COMMENTS: NORMAL 2D ECHO WITH DOPPLER NO WALL MOTION ABNORMALITY NO EFFUSION TECHNOLOGIST: RAFAEL SCHMIDT
[2023-01-28] MEDS: ACETAMINOPHEN 500 MG TAB PO PRN (07:41)
[2023-01-28] MEDS: ASPIRIN EC 81 MG TAB PO SCH (07:41)
[2023-01-28 09:02] VITALS: O2SAT 96
[2023-01-28 13:03] VITALS: BP 123/67; TEMP 97.7
--- NOTE | 2023-01-28 13:27 | PN ---
Date of Progress Note: 01/27/2023 Patient states she feels much more comfortable today, although she has not had any stress, which she says is considerable, especially at work. Her vital signs have been stable here, although she requir es blood pressure medication as an outpatient. Telemetry so far today has been okay as well as rest of her cardiac workup, seen by Cardiology who suggested a stress test and an echo, which would be don e later in the day. In the meantime, we will continue to monitor. Only other factor, she says that she had 1 spike, which she calls dizzy episodes when she gets up. Wondering if it might be a reactio n to her blood pressure pills and/or stress. In any event, the echo was normal. She could be discha rged and do the stress test as an outpatient. She also does have hypokalemia and is not on any diure tic, so this will be replaced and we will monitor as well. HR/MODL Voice ID: [id number] Report ID: [id number]
--- NOTE | 2023-01-28 13:39 | PN ---
Date of Progress Note: 01/28/2023 Patient states she feels fine. She feels back to normal. She has had no lightheaded, dizzy episodes . Blood pressure is still low. Potassium is now corrected. Her echo was normal. Feels cardiac sta tus is stable. She will be discharged. Do stress test on an outpatient basis. To follow up with me on an outpatient basis. I feel the probability of this being either stress or an arrhythmia. Outpa tient is more likely in the hospital setting and we will monitor potassium. She is instructed to inc rease her fluid intake. She is discharge in good condition. HR/MODL Voice ID: [id number] Report ID: [id number]
== END 2023-01-28 12:58 | disposition home or self-care (01) ==
LOC: ER 21:26 → ERHOLD 01-27 00:54 → 2ND 01-27 01:07
PROVIDERS: ADMIT Family Medicine; ATTEND Family Medicine
DX: R07.89 Other chest pain (principal); F41.9 Anxiety disorder, unspecified; I10 Essential (primary) hypertension; E03.9 Hypothyroidism, unspecified; G43.909 Migraine, unspecified, not intractable, without status migrainosus; R20.0 Anesthesia of skin; E87.6 Hypokalemia; Z20.822 Contact with and (suspected) exposure to COVID-19
CPT/HCPCS: 93005; 93306; 85025 ×2; 80048 ×2; 36415 ×2; 83735; 85610; 85379; 80076; 84484 ×3; 83880; 87804 ×2; 71275; 71045; 96374; 99285; U0003; Q9967; J2270; J7040; G0378 ×3

== ENCOUNTER 2023-02-12 15:21 | Inpatient (IN) | payer BC ==
--- OUTSIDE RECORDS SUMMARY | 2023-02-12 15:24 | XMS REPORT | Continuity of Care Document ---
:1970 Author Organization [facility] t Address [address] [facility] [address] [place] [id number] Care Team Providers Name Role Phone Lab, [...] Drug Active [facility]ERGIE Class ity of [facility] Social History Social Habit Start Date Stop Date Quantity Comments Source Exposure to Yes [facility] SARS-CoV-2 (event) Medica l Branch Sex Assigned At [birth year] [facility] 00:00:00 00:00:00 [facility] Branch Smoking Status Start Date Stop Date Source Unknown if ever smoked [facility] Medications Ordered Filled Start Stop Current Ordering [...] Facility Department ID 2021-04-25 2021-04-25 Laboratory Lab, [facility] I [facility] 1.2. [id number] Univers 15:37:23 15:57:23 Only Jim, [facility] [id number] ity [place] [id number] Fortunato as Professio [phone] Nv dical nal [address] [place] [address] Office Building One 2021-04-25 2021-04-25 Outpatient R JIM [facility] [id number] Univers 15:40:00 15:40:00 [place] [facility] 2021-01-01 2021-01-01 Laboratory Lab, [facility] 1.2. [id number] Univers 15:35:50 15:55:50 Only Peace Nieves [facility] [id number] ity [place] [id number] Fortun[place] as Professio [phone] Nv [address] Office Building One 2021-01-01 2021-01-01 Outpatient R [facility] [id number] Univers 15:40:00 15:40:00 [facility] Results This patient has no known results.
[2023-02-12] MEDS ORDERED: FAMOTIDINE 20 MG/2 ML VIAL IV ONE (15:56)
[2023-02-12] MEDS ORDERED: ONDANSETRON 4 MG/2 ML VIAL ONE (15:56)
[2023-02-12] MEDS ORDERED: MORPHINE 4 MG/ML SYR ONE (15:56)
[2023-02-12 16:40] LABS: Absolute Lymphocytes (CBC) 1.8 K/uL (0.7-4.9); Hematocrit 40.4 % (36.0-45.0); Lymphocytes % 19.5 % (15.3-44.8); MCV 88.4 fL (80-100); RBC Red Blood Cell Count 4.57 M/uL (3.86-4.86)
[2023-02-12 16:50] LABS: Specific Gravity 1.021 (1.005-1.030)
[2023-02-12 16:53] LABS: Albumin 3.6 g/dL (3.4-5.0); Bilirubin Total 0.3 mg/dL (0.2-1.0); Potassium 3.4 mEq/L (3.5-5.1); Protein, Total 7.3 g/dL (6.4-8.2)
[2023-02-12 16:53] LABS: Specific Gravity 1.021 (1.005-1.030); Urine Bacteria <20 /HPF (<20); Urine Bilirubin NEGATIVE (Negative); Urine Blood 2+ (Negative); Urine Clarity Clear (Clear); Urine Color Light-Yellow (Yellow); Urine Glucose NEGATIVE (Negative); Urine Mucus Slight /HPF (None Seen); Urine Protein NEGATIVE (Negative); Urine RBC <5 /HPF (None Seen); Urine Urobilinogen Normal (Normal); Urine pH 5.5 (5.0-7.0)
--- NOTE | 2023-02-12 17:18 | RAD REPORT ---
EXAM DESCRIPTION: CT - Abdomen Pelvis W Contrast - 02/12/2023 5:03 pm CLINICAL HISTORY: ABD PAIN COMPARISON: CT ABD PELVIS W CONTRAST dated 07/18/2014 TECHNIQUE: Thin cut axial CT imaging of the abdomen and pelvis was performed following intravenous a dministration of 100 mL Isovue 300. Multiplanar reformats were generated and reviewed. All CT scans are performed using dose optimization technique as appropriate and may include automated exposure control or mA/KV adjustment according to patient size. FINDINGS: No suspicious findings in the lung bases. The liver, adrenal glands, and pancreas show no suspicious findings. Spleen shows no focal lesion. Pa rtially calcified splenic artery aneurysms, the largest measuring 1.3 centimeter. Gallbladder and fatoumata iary tree are also without suspicious finding. Symmetric renal function is seen with no hydronephrosis or suspicious renal mass. No dilated bowel loops focal inflammatory changes along a superiorly directed diverticulum at the lev el of the mid to distal sigmoid colon. Ill-defined tiny region of fluid density present within the lopez perior sigmoid colon wall, best appreciated on coronal image 52, may represent an early intramural co llection. No free air, free fluid, or extra colonic fluid collection. No hernia, mass or bulky lympha denopathy. The urinary bladder is without significant finding. No suspicious bony findings. IMPRESSION: Sequelae of acute proximal to mid sigmoid diverticulitis, without evidence of complicati ons. A small focus of hypoattenuation along the superior wall could relate to early intramural collec tion. Other stable findings including partially calcified small splenic artery aneurysms. The findings were communicated to Oni Page on 02/12/2023 at 17:11 hours.
--- NOTE | 2023-02-12 17:52 | EDPHYS ---
Physician Documentation [facility] Name: Juju Orozco Age: 52 yrs Sex: Female : 1970 Arrival Date: 02/12/2023 Time: 15:21 Bed 13 Private MD: ED Physician Chema Beyer HPI: 02/12 15:40 This 52 yrs old Female presents to ER via Ambulatory with complaints of cp Abdominal Pain. 15:40 The patient presents with abdominal pain mid and lower abdomen. Onset: The cp symptoms/episode began/occurred last night. The symptoms radiate to low back. Associated signs and symptoms: Pertinent negatives: dysuria, fever, hematuria. The symptoms are described as described as "bloating". 15:40 Severity of pain: in the emergency department the pain is unchanged despite home cp interventions. 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 - Social history:: Smoking status: Patient denies any tobacco usage or history of. ROS: 15:45 Constitutional: Negative for body aches, chills, fever, poor PO intake. cp 15:45 Eyes: Negative for injury, pain, redness, and discharge. cp 15:45 Cardiovascular: Negative for chest pain, edema, palpitations. 15:45 Respiratory: Negative for cough, shortness of breath, wheezing. 15:45 ENT: Negative for drainage from ear(s), ear pain, sore throat, difficulty swallowing, cp difficulty handling secretions. 15:45 Abdomen/GI: Positive for abdominal pain, Negative for vomiting, diarrhea, constipation, black/tarry stool, rectal bleeding. 15:45 Neuro: Negative for altered mental status, dizziness, headache, syncope, weakness. 15:45 All other systems are negative. Exam: 15:50 Constitutional: The patient appears in no acute distress, alert, awake, cp non-diaphoretic, non-toxic, well developed, well nourished, uncomfortable, overweight 15:50 Head/Face: Normocephalic, atraumatic. cp 15:50 Eyes: Periorbital structures: appear normal, Conjunctiva: normal, no exudate, no injection, Sclera: no appreciated abnormality, Lids and lashes: appear normal, bilaterally. 15:50 ENT: External ear(s): are unremarkable, Nose: is normal, Mouth: Lips: moist, Oral mucosa: pink and intact, moist, Posterior pharynx: is normal, airway is patent, no erythema, no exudate. 15:50 Neck: ROM/movement: is normal, is supple, without pain, no range of motions limitations. 15:50 Chest/axilla: Inspection: normal. 15:50 Cardiovascular: Rate: normal, Rhythm: regular, Edema: JVD: is not appreciated. cp 15:50 Respiratory: the patient does not display signs of respiratory distress, Respirations: cp normal, no use of accessory muscles, no retractions, labored breathing, is not present, Breath sounds: are clear throughout, no decreased breath sounds, no stridor, no wheezing. 15:50 Abdomen/GI: Inspection: obese Bowel sounds: active, all quadrants, Palpation: soft, in all quadrants, moderate abdominal tenderness, in the mid and lower abdomen, rebound tenderness, is not appreciated, involuntary guarding, is not appreciated. 15:50 Back: CVA tenderness, is absent. 15:50 Neuro: Orientation: to person, place \\T\\ time. Mentation: is normal. Vital Signs: 15:26 BP 187 / 104; Pulse 76; Resp 16; Temp 97.3; Pulse Ox 98% ; Weight 105.69 kg; Height 5 bp ft. 5 in. ; 16:02 BP 141 / 84; Pulse 78; Resp 18; Pulse Ox 100% on R/A; mb9 17:26 BP 137 / 92; Pulse 78; Resp 16; Pulse Ox 99% on R/A; mb9 15:26 Body Mass Index 38.77 (105.69 kg, 165.1 cm) bp MDM: 15:24 Patient medically screened. bs3 16:00 Differential diagnosis: appendicitis, bowel obstruction, cholecystitis, Cholelithiasis, cp diverticulitis, non-specific abd pain, pancreatitis, Pyelonephritis, Ureterolithiasis, urinary tract infection. 17:25 Data reviewed: vital signs, nurses notes, lab test result(s), radiologic studies, CT cp scan. 17:25 Management of patient was discussed with the following: [employer] Converter: DR Sears who will consult and requests patient be admitted to pcp. 17:45 Management of patient was discussed with the following: Primary Care Provider: DR pallavi Cameron will admit patient after discussion of today's results. 17:55 Care significantly affected by the following chronic conditions: Hypertension. 17:55 Response to treatment: the patient's symptoms have markedly improved after treatment, cp and as a result, I will discharge patient. 02/12 15:45 Order name: CBC with Diff; Complete Time: 17:03 02/12 17:03 Interpretation: Reviewed. 02/12 15:45 Order name: CMP; Complete Time: 17:03 02/12 17:03 Interpretation: Normal except: NA 134; K 3.4; ANION GAP 4.4; GLUC 119; GFR 86; GLOB cp 3.7; A/G 1.0. 02/12 15:45 Order name: Lipase; Complete Time: 17:03 02/12 15:45 Order name: Test, Urine; Complete Time: 17:03 02/12 15:45 Order name: Urinalysis w/ reflexes; Complete Time: 17:03 02/12 17:29 Order name: Lactate w/ 2H reflex if indic.; Complete Time: 18:41 02/12 18:41 Interpretation: Reviewed. 02/12 17:40 Order name: Blood Culture Adult (2) 02/12 18:42 Order name: Basic Metabolic Panel [facility] 02/12 18:42 Order name: Basic Metabolic Panel [facility] 02/12 18:42 Order name: CBC with Automated Diff [facility] 02/12 18:42 Order name: CBC with Automated Diff [facility] 02/12 18:42 Order name: Lipase [facility] 02/12 18:42 Order name: Lipase [facility] 02/12 18:42 Order name: Liver (Hepatic) Function [facility] 02/12 18:42 Order name: Liver (Hepatic) Function [facility] 02/12 15:45 Order name: CT Abd/Pelvis - PO and IV Contrast; Complete Time: 17:19 02/12 18:38 Order name: CONS Physician Consult [facility] 02/12 18:42 Order name: Clear Liquid [facility] 02/12 15:45 Order name: IV Saline Lock; Complete Time: 16:01 cp 02/12 15:45 Order name: Labs collected and sent; Complete Time: 16:01 cp Administered Medications: 15:50 Drug: Famotidine IVP 20 mg Route: IVP; Site: right antecubital; mb9 15:52 Drug: Ondansetron IVP 4 mg Route: IVP; Site: right antecubital; mb9 15:56 Drug: morphine IVP or IV 4 mg Route: IVP; Infused Over: 4 mins; Site: right antecubital;mb9 18:23 Drug: Piperacillin-Tazobactam IVPB 3.375 grams Route: IVPB; Infused Over: 60 mins; mb9 Site: right antecubital; 19:33 Follow up: Response: No adverse reaction; IV Status: Completed infusion mb9 Disposition Summary: 02/12/23 17:51 Hospitalization Ordered Hospitalization Status: Inpatient Admission cp Provider: Sergio Cameron cp Location: Telemetry/[facility] (Inpatient) cp Condition: Stable cp Problem: new cp Symptoms: have improved cp Bed/Room Type: Standard cp Room Assignment: 208(02/12/23 19:26) lg3 Diagnosis - Diverticulitis of large intestine without perforation or abscess without bleeding cp Forms: - Medication Reconciliation Form cp - SBAR form cp Addendum: 02/15/2023 11:58 Co-signature as Attending Physician, Chema Beyer MD I reviewed the patient's care r n provided by the Advanced Practice Provider and agree with the diagnosis and treatment plan. Signatures: [facility] Chema Beyer MD MD rn Page, Corey, PA PA cp Bob Felix RN RN Karen Muñoz RN RN lg3 Osiel Goodson MD MD bs3 Shannan Short, RN RN mb9 Corrections: (The following items were deleted from the chart) 02/12 16:31 15:40 Associated signs and symptoms: Pertinent positives: nausea, Pertinent negatives: cp dysuria, fever, hematuria, cp 19:26 17:51 cp lg3 02/13 14:50 02/12 15:40 Onset: The symptoms/episode began/occurred this morning, cp cp
--- NOTE | 2023-02-12 17:52 | ER ---
Nurse's Notes [facility] Name: Juju Orozco Age: 52 yrs Sex: Female : 1970 Arrival Date: 02/12/2023 Time: 15:21 Bed 13 Private MD: Diagnosis: Diverticulitis of large intestine without perforation or abscess without bleeding Presentation: 02/12 15:26 Chief complaint: Patient states: "I BEEN HURTING LIKE LABOR PAINS MIXED WITH A UTI." bp REPORTS DIFFUSE ABDOMINAL PAIN SINCE LAST PM WITHOUT NAUSEA/VOMITING/DIARRHEA. Coronavirus screen: At this time, the client does not indicate any symptoms associated with coronavirus-19. Ebola Screen: No symptoms or risks identified at this time. Initial Sepsis Screen: Does the patient meet any 2 criteria? No. Patient's initial sepsis screen is negative. Does the patient have a suspected source of infection? No. Patient's initial sepsis screen is negative. Risk Assessment: Do you want to hurt yourself or someone else? Patient reports no desire to harm self or others. Onset of symptoms is unknown. 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 - Social history:: Smoking status: Patient denies any tobacco usage or history of. Screenin:45 [facility] ED Fall Risk Assessment (Adult) History of falling in the last 3 months, mb9 including since admission No falls in past 3 months (0 pts) Confusion or Disorientation No (0 pts) Intoxicated or Sedated No (0 pts) Impaired Gait No (0 pts) Mobility Assist Device Used No (0 pt) Altered Elimination No (0 pt) Score/Fall Risk Level 0 - 2 = Low Risk Oriented to surroundings, Maintained a safe environment, Educated pt \\T\\ family on fall prevention, incl call for assistance when getting out of bed. Abuse screen: Denies threats or abuse. Nutritional screening: No deficits noted. Tuberculosis screening: No symptoms or risk factors identified. Assessment: 16:03 General: Appears in no apparent distress. Behavior is cooperative. Pain: Complains of mb9 pain in abdomen Pain radiates to right flank Pain currently is 8 out of 10 on a pain scale. Quality of pain is described as crampy, Pain began suddenly, Is continuous. Neuro: Rahman Agitation-Sedation Scale (RASS): 0 - Alert and Calm Level of Consciousness is awake, alert, obeys commands, Oriented to person, place, time, situation, Appropriate for age. Cardiovascular: Patient's skin is warm and dry. Respiratory: Airway is patent Respiratory effort is even, unlabored, Respiratory pattern is regular, symmetrical. GI: Abdomen is round non-distended, Bowel sounds present X 4 quads. Abd is soft Abdomen is tender to palpation X 4 quads. : Urine is clear. Derm: Skin is pink, warm \\T\\ dry. Musculoskeletal: Range of motion: intact in all extremities. Vital Signs: 15:26 BP 187 / 104; Pulse 76; Resp 16; Temp 97.3; Pulse Ox 98% ; Weight 105.69 kg; Height 5 bp ft. 5 in. ; 16:02 BP 141 / 84; Pulse 78; Resp 18; Pulse Ox 100% on R/A; mb9 17:26 BP 137 / 92; Pulse 78; Resp 16; Pulse Ox 99% on R/A; mb9 15:26 Body Mass Index 38.77 (105.69 kg, 165.1 cm) bp ED Course: 15:22 Patient arrived in ED. am2 15:24 Oni Mann PA is PHCP. cp 15:24 Chema Beyer MD is Attending Physician. cp 15:28 Triage completed. bp 15:28 Arm band placed on. bp 15:44 Shannan Short, QUOC is Primary Nurse. mb9 15:45 Placed in gown. Bed in low position. Call light in reach. Side rails up X 1. Client mb9 placed on continuous cardiac and pulse oximetry monitoring. NIBP monitoring applied. 15:45 No provider procedures requiring assistance completed. mb9 15:50 Inserted saline lock: 22 gauge in right antecubital area, using aseptic technique. mb9 16:01 CBC with Diff Sent. mb9 16:01 CMP Sent. mb9 16:01 Lipase Sent. mb9 16:01 Test, Urine Sent. mb9 16:01 Urinalysis w/ reflexes Sent. mb9 16:07 Radiology exam delayed due to lab results not completed at this time. (BUN/Creatinine) jg10 test not completed at this time. IV insertion attempt and/or patient not having appropriate IV at this time. 17:04 CT Abd/Pelvis - PO and IV Contrast In Process Unspecified. EDMS 17:48 Sergio Cameron MD is Hospitalizing Provider. cp 18:00 Initial lab(s) drawn, by ED staff, First set of blood cultures drawn. mm9 18:05 Blood Culture Adult (2) Sent. mm9 18:05 Lactate w/ 2H reflex if indic. Sent. mm9 18:15 Blood Culture Adult (2) Sent. mm9 18:15 Lactate w/ 2H reflex if indic. Sent. mm9 18:15 Second set of blood cultures drawn. mm9 19:33 Patient admitted, IV remains in place. mb9 Administered Medications: 15:50 Drug: Famotidine IVP 20 mg Route: IVP; Site: right antecubital; mb9 15:52 Drug: Ondansetron IVP 4 mg Route: IVP; Site: right antecubital; mb9 15:56 Drug: morphine IVP or IV 4 mg Route: IVP; Infused Over: 4 mins; Site: right antecubital;mb9 18:23 Drug: Piperacillin-Tazobactam IVPB 3.375 grams Route: IVPB; Infused Over: 60 mins; mb9 Site: right antecubital; 19:33 Follow up: Response: No adverse reaction; IV Status: Completed infusion mb9 Medication: 15:45 VIS not applicable for this client. mb9 Outcome: 17:51 Decision to Hospitalize by Provider. cp 19:32 Admitted to Med/surg room 208, with chart, Report called to QUOC Saxena mbSirisha 19:32 Condition: stable 19:32 Instructed on the need for admit. 19:56 Patient left the ED. mb9 Signatures: Dispatcher [employer] EDMO Oni Mann PA PA cp Moreno, Amanda am2 Bob Felix RN RN Samia Canales mm9 Iris Silva jg10 Breneman, Tisha, RN RN mb9
[2023-02-12] MEDS ORDERED: PIPERACIL/TAZO 3.375 GM VIAL IV ONE (18:05)
[2023-02-12] MEDS ORDERED: NA CHLORIDE 0.9% 100 ML ONE (18:05)
[2023-02-12] MEDS ORDERED: MORPHINE 4 MG/ML SYR IV PRN (18:37)
[2023-02-12 20:19] VITALS: BMI 38.7
[2023-02-12] MEDS: D5W 1,000 ML IV SCH (21:23)
[2023-02-12] MEDS: MEPERIDINE HCL 25 MG/ML SYR IV PRN (21:23)
[2023-02-13] MEDS: PIPER TAZO 3.375 GM in NA CHLORIDE 0.9% 100 ML IV SCH ×3 (00:43→16:05)
[2023-02-13] MEDS: MEPERIDINE HCL 25 MG/ML SYR IV PRN ×2 (01:17→05:21)
[2023-02-13 02:56] LABS: Absolute Lymphocytes (CBC) 1.4 K/uL (0.7-4.9); Hematocrit 39.8 % (36.0-45.0); Lymphocytes % 15.9 % (15.3-44.8); MCV 88.5 fL (80-100); MPV 8.6 fL (7.6-11.3); RBC Red Blood Cell Count 4.49 M/uL (3.86-4.86)
[2023-02-13 03:20] LABS: ALT/SGPT 32 U/L (13-56); AST/SGOT 15 U/L (15-37); Albumin 3.2 g/dL (3.4-5.0); Alkaline Phosphatase 73 U/L (45-117); BUN Blood Urea Nitrogen 12 mg/dL (7-18); Bicarbonate 25 mEq/L (21-32); Bilirubin Total 0.5 mg/dL (0.2-1.0); Glomerular Filtration Rate 83 ml/min (=/>90); Glucose Level 106 mg/dL (74-106); Lipase 19 U/L (13-75); Potassium 3.7 mEq/L (3.5-5.1); Protein, Total 6.8 g/dL (6.4-8.2); Sodium Level 138 mEq/L (136-145)
[2023-02-13 03:22] LABS: Bilirubin Direct < 0.1 mg/dL (0-0.2); Bilirubin Indirect, Calculated ND mg/dL (0.2-0.8)
[2023-02-13] MEDS: ONDANSETRON 4 MG/2 ML VIAL IV PRN ×2 (05:33→10:43)
[2023-02-13] MEDS: ACETAMINOPHEN 500 MG TAB PO PRN ×4 (09:43→21:57)
--- NOTE | 2023-02-13 13:00 | PN ---
Date of Progress Note: 02/13/2023 The patient states she currently feels somewhat better today. She is up, walking required minimal pain management. Her appetite is starting to improve. Physical exam still showed some tend erness in the mid abdominal area paralumbar locally with minimal rebound and tenderness. Discussed c ase with Dr. Sears, who felt findings on the CT scan. She will keep her for some IV an tibiotics during the day or so and limit her intake. Her potassium back to normal as well as WBCs x2 . She possibly could be discharged within 24 to 48 hours. HR/MODL Voice ID: [id number] Report ID: [id number]
--- NOTE | 2023-02-13 14:29 | CON ---
Date of Consultation: 02/13/2023 Diagnosis: Acute diverticulitis. History Of Present Illness: This is the case of a 52-year-old patient, who comes to us with abdomina l pain on the left lower quadrant associated with bloating, nausea. No trauma. No dysuria, hematuri a, hematochezia, melena. No recent traveling out of the country. No family member sick at home. Th e patient has no previous colonoscopies. Review of Systems: See HPI. Once again, no dysuria, hematuria, no hematochezia, no melena. Ten points otherwise unrema rkable. Allergies: INCLUDE LATEX. Past Medical History: Anxiety, hypertension, hypothyroidism, migraines. Past Surgical History: Four C-sections. Medications: Alprazolam, levothyroxine. Social History: She does not smoke. She does not drink alcohol. Physical Examination: General: The patient is awake, alert. HEENT: Pupils are equal and reactive. Anicteric. Neck: Supple. Chest: Clear. Heart: S1, S2. Abdomen: Left lower quadrant tenderness with guarding. No rebound. Breasts: Deferred. Pelvic: Deferred. Rectal: Deferred. Extremities: Good capillary refill. Laboratory Data: Blood work shows WBC count of 9 with hemoglobin of 13.2, potassium 3.7, creatinine is 0.8. CAT scan of abdomen and pelvis interpreted by Dr. Valencia, acute proximal to mid sigmoid dive rticulitis without evidence of complications, small focus of hypoattenuation along the superior wall could relate to an early intramural collection. The patient also shows a stable finding including pa rtial calcified small splenic artery aneurysm. The patient explained to follow with her vascular wero geon. Assessment: This is a 52-year-old patient with diverticulitis, but also bleeding with an abscess wit h an intramural collection at least that is what the radiologist believed it is happening, so the pat ient was admitted to the hospital. We are going to keep n.p.o., IV antibiotics, repeat the x-rays in the morning. She was fully explained the options for emergent surgery, which include emergent lapar otomy, possible bowel resection, ostomy. She also understands the importance if she gets better duri ng this admission to have a colonoscopy as an outpatient and several weeks when the swelling is down and diverticulitis resolves and also the options of elective colon resection were discussed with the patient. CAROL ANN/SHELTON Voice ID: [id number] Report ID: [id number]
[2023-02-13] MEDS: ALPRAZOLAM 1 MG TABLET PO PRN (21:10)
[2023-02-14] MEDS: PIPER TAZO 3.375 GM in NA CHLORIDE 0.9% 100 ML IV SCH ×3 (00:37→18:01)
[2023-02-14] MEDS: ACETAMINOPHEN 500 MG TAB PO PRN ×2 (04:25→09:59)
[2023-02-14] MEDS: D5W 1,000 ML IV SCH (04:27)
[2023-02-14] MEDS: LEVOTHYROXINE SOD 0.05 MG TABLET PO SCH (08:55)
--- NOTE | 2023-02-14 14:02 | PN ---
Diagnosis: Diverticulitis. Subjective: The patient is doing better. has almost gone. No nausea. No vomiting. Pas sing flatus. Objective: Chest: Clear. Abdomen: Soft and depressible. Plan: We are going to start with clear liquid diet today. Yesterday, she was having so much pain. Today, we are going to try with clear liquids and once again. Ambulation important. CAROL ANN/SHELTON Voice ID: [id number] Report ID: [id number]
[2023-02-15] MEDS: PIPER TAZO 3.375 GM in NA CHLORIDE 0.9% 100 ML IV SCH ×3 (01:24→16:21)
[2023-02-15] MEDS: ONDANSETRON 4 MG/2 ML VIAL IV PRN (07:54)
[2023-02-15] MEDS: LEVOTHYROXINE SOD 0.05 MG TABLET PO SCH (07:54)
[2023-02-15] MEDS: D5W 1,000 ML IV SCH (07:54)
[2023-02-15] MEDS ORDERED: PIPERACIL/TAZO 3.375 GM VIAL IV ONE (16:27)
[2023-02-15] MEDS: ALPRAZOLAM 1 MG TABLET PO PRN (22:14)
[2023-02-15 23:58] VITALS: O2SAT 97
[2023-02-16] MEDS: PIPER TAZO 3.375 GM in NA CHLORIDE 0.9% 100 ML IV SCH (00:13)
[2023-02-16] MEDS ORDERED: PIPERACIL/TAZO 3.375 GM VIAL IV ONE (07:35)
[2023-02-16] MEDS ORDERED: NA CHLORIDE 0.9% 100 ML ONE (07:48)
[2023-02-16] MEDS: LEVOTHYROXINE SOD 0.05 MG TABLET PO SCH (07:52)
--- NOTE | 2023-02-16 10:32 | P.PN ---
Subjective Date of Service: 02/15/23 Chief Complaint: diverticulitis with possible microperforation Subjective: Ambulating, Improving Review of Systems General: Unremarkable Cardiovascular: Unremarkable Gastrointestinal: Abdominal Pain, Distention Genitourinary: Unremarkable Physical Examination - Vital Signs Temperature: 97.5 F Blood Pressure: 133/84 Pulse: 66 Respirations: 16 Pulse Ox (%): 95 - Physical Exam General: Alert, In no apparent distress, Oriented x3, Cooperative HEENT: PERRLA Neck: Supple Respiratory: Normal air movement Cardiovascular: Normal pulses Gastrointestinal: Tenderness (LLQ improved) Musculoskeletal: No erythema, No tenderness Integumentary: No rashes Assessment And Plan - Plan advance diet in AM. Pt very hungry ans want to try. OOB dvt prophylaxis
--- NOTE | 2023-02-16 13:07 | PN ---
Subjective: Doing better. No nausea, no vomiting. No fever. Passing gas. Objective: Chest: Clear. Abdomen: Soft and depressible. Plan: We are going to advance diet slowly. Today, we are going to try some soft diet in small amoun ts. If by tomorrow she tolerates diet, then we may have a case to send her home on p.o. antibiotics if that what she wants. She understands the need for followup in my office in a week. She also unde rstands the need of colonoscopy in the near future once the inflammation goes down. CAROL ANN/SHELTON Voice ID: [id number] Report ID: [id number]
[2023-02-16 15:10] LABS: Absolute Lymphocytes (CBC) 1.3 K/uL (0.7-4.9); Hematocrit 39.8 % (36.0-45.0); MCV 88.2 fL (80-100); MPV 8.5 fL (7.6-11.3); RBC Red Blood Cell Count 4.51 M/uL (3.86-4.86)
[2023-02-16 15:24] LABS: Albumin 3.7 g/dL (3.4-5.0); Bilirubin Total 0.3 mg/dL (0.2-1.0); Potassium 3.6 mEq/L (3.5-5.1); Protein, Total 7.8 g/dL (6.4-8.2)
[2023-02-16] MEDS ORDERED: CEFDINIR 300 MG CAP PO SCH (17:00)
--- NOTE | 2023-02-16 19:24 | PN ---
Date of Progress Note: 02/16/2023 Subjective: The patient continues to improve. She feels much better today. She has tolerated some solid food, had a bowel movement no problem. On examination, she is nontender, soft abdom en. No guarding, rebound, tenderness, or rigidity. Bowel sounds are normal. She was hydrated. I t hink she can be discharged to continue Zosyn. Instructed on dietary restrictions and to s marguerite Sears next week and myself at the end of this week. She is also supposed to see her cardio logist on . She should remain off work this week. Discharged in good condition. Final Diagnosis: Acute diverticulitis with some mucosal inflammation. HR/MODL Voice ID: [id number] Report ID: [id number]
[2023-02-16 19:39] VITALS: BP 147/92; TEMP 97.3
== END 2023-02-16 19:30 | disposition home or self-care (01) | DRG 379 ==
LOC: ER 15:21 → ERHOLD 18:34 → 2ND 19:33
PROVIDERS: ADMIT Family Medicine; ATTEND Family Medicine
DX: K57.21 Diverticulitis of large intestine with perforation and abscess with bleeding (principal); E03.9 Hypothyroidism, unspecified; I10 Essential (primary) hypertension; Z91.040 Latex allergy status; Z79.890 Hormone replacement therapy; Z79.899 Other long term (current) drug therapy
CPT/HCPCS: 36415; 74177; 80048; 80053; 80076; 81001; 81025; 83605; 83690; 84443; 85025; 87040; 96365; 96375; 99285; J2175; J2405; J2543; Q9967

== ENCOUNTER 2023-04-14 06:34 | Day surgery (SDC) | payer BC ==
[2023-04-14] MEDS ORDERED: Ringers Lactate 1,000 ML IV ONE (07:04)
[2023-04-14] MEDS ORDERED: propofoL 200 MG/20 ML VIAL IV ONE ×2 (08:26→08:27)
[2023-04-14] MEDS ORDERED: LIDOCAINE 1% MPF 5 ML VIAL ONE (08:26)
[2023-04-14] MEDS ORDERED: GLYCOPYRROLATE 0.2 MG/ML SYR ONE (08:26)
[2023-04-14 10:30] VITALS: BP 109/71; TEMP 97.6; O2SAT 97
== END 2023-04-14 09:27 | disposition home or self-care (01) ==
LOC: PRE 06:34 → OR 09:27
PROVIDERS: ATTEND Surgery
PROC: 0DBL8ZX Excision of Transverse Colon, Via Natural or Artificial Opening Endoscopic, Diagnostic (ICD-10-PCS; principal; 2023-04-14 08:00)
DX: Z12.11 Encounter for screening for malignant neoplasm of colon (principal); K57.30 Diverticulosis of large intestine without perforation or abscess without bleeding; Z80.0 Family history of malignant neoplasm of digestive organs; K64.4 Residual hemorrhoidal skin tags; K64.8 Other hemorrhoids; D12.3 Benign neoplasm of transverse colon
CPT/HCPCS: 88305; 45384; J2704 ×2; J2001; J7120

== ENCOUNTER 2023-06-05 17:35 | Emergency (ER) | payer BC ==
--- OUTSIDE RECORDS SUMMARY | 2023-06-05 17:37 | XMS REPORT | Continuity of Care Document ---
:1970 Author Organization [facility] t Address [address] [place] [address] Care Team Providers Name Role Phone Lab, [...] Active [facility] Class ity of [facility] Social History Social Habit Start Date Stop Date Quantity Comments Source Exposure to Yes [facility] SARS-CoV-2 (event) Medica l Branch Sex Assigned At [birth year] [facility] 00:00:00 00:00:00 [facility] Smoking Status Start Date Stop Date Source Unknown if ever smoked [facility] Medications Ordered Filled Start Stop [...] Facility Department ID 2021-04-25 2021-04-25 Laboratory Lab, [facility] 1.2. [id number] Univers 15:37:23 15:57:[address] [facility] [id number] ity of [place] [id number] Fortunato as Professio [phone] [address] 2021-04-25 2021-04-25 Outpatient R JIM [facility] [id number] Univers 15:40:00 15:40:00 [place] feldmany o f [facility] 2021-01-01 2021-01-01 Laboratory Lab, [facility] I [facility] 1.2. [id number] Univers 15:35:50 15:55:50 Only [facility] [id number] ity of [place] [id number] Fortunato as Professio [phone] [address] 2021-01-01 2021-01-01 Outpatient R [facility] [id number] Univers 15:40:00 15:40:00 ity of [facility] Results This patient has no known results.
[2023-06-05] MEDS ORDERED: NA CHLORIDE 0.9% 1,000 ML ONE (17:58)
[2023-06-05] MEDS ORDERED: ASPIRIN 81 MG CHEWABLE TABLET ONE (17:58)
[2023-06-05 18:05] LABS: Absolute Lymphocytes (CBC) 1.9 K/uL (0.7-4.9); Hematocrit 40.5 % (36.0-45.0); Lymphocytes % 25.2 % (15.3-44.8); MCV 88.3 fL (80-100); MPV 8.6 fL (7.6-11.3); Platelets 206 thou/uL (152-406); RBC Red Blood Cell Count 4.59 M/uL (3.86-4.86)
[2023-06-05 18:08] LABS: Protime INR 0.99
--- NOTE | 2023-06-05 18:10 | RAD REPORT ---
EXAM DESCRIPTION: Charmaine Single View06/05/2023 5:59 pm CLINICAL HISTORY: Chest pain COMPARISON: January 2023 FINDINGS: The lungs appear clear of acute infiltrate. The heart is normal size IMPRESSION: No acute abnormalities displayed
[2023-06-05 18:24] LABS: ALT/SGPT 47 U/L (13-56); AST/SGOT 19 U/L (15-37); Albumin 3.6 g/dL (3.4-5.0); Alkaline Phosphatase 84 U/L (45-117); BUN Blood Urea Nitrogen 13 mg/dL (7-18); Bicarbonate 30 mEq/L (21-32); Bilirubin Direct < 0.1 mg/dL (0-0.2); Bilirubin Total 0.3 mg/dL (0.2-1.0); Glomerular Filtration Rate 85 ml/min (=/>90); Glucose Level 100 mg/dL (74-106); Lipase 23 U/L (13-75); Magnesium 1.7 mg/dL (1.6-2.4); NT PRO-BNP 11 pg/mL (<125); Potassium 3.7 mEq/L (3.5-5.1); Protein, Total 7.5 g/dL (6.4-8.2); Sodium Level 139 mEq/L (136-145); Troponin High Sensitivity 4.9 pg/mL (<58.9)
[2023-06-05 18:25] LABS: Bilirubin Indirect, Calculated ND mg/dL (0.2-0.8)
[2023-06-05 18:31] LABS: Specific Gravity 1.011 (1.005-1.030); Urine Bacteria None Seen /HPF (<20); Urine Bilirubin NEGATIVE (Negative); Urine Blood Trace (Negative); Urine Clarity Turbid (Clear); Urine Color Colorless (Yellow); Urine Glucose NEGATIVE (Negative); Urine Protein NEGATIVE (Negative); Urine RBC <5 /HPF (None Seen); Urine Urobilinogen Normal (Normal); Urine pH 5.5 (5.0-7.0)
--- NOTE | 2023-06-05 19:26 | RAD REPORT ---
EXAM DESCRIPTION: CT - Chest For Pe Angio - 06/05/2023 7:01 pm CLINICAL HISTORY: Chest pain COMPARISON: January 2023 TECHNIQUE: Dynamically enhanced axial 3 mm thick images of the chest were obtained during administra tion of 100 mL Isovue 370 IV contrast. Coronal and oblique reconstruction images were generated and r eviewed. Exam utilizes a protocol for optimal evaluation of pulmonary arterial tree. Maximum intensity projections 3D imaging was utilized All CT scans are performed using dose optimization technique as appropriate and may include automated exposure control or mA/KV adjustment according to patient size. FINDINGS: Suboptimal opacification of the pulmonary artery. No gross pulmonary embolus A thoracic aortic aneurysm is not noted. Bovine aorta A pleural effusion is not seen. A pericardial effusion is not seen. A lung consolidation is not present. IMPRESSION: No gross pulmonary embolus seen
--- NOTE | 2023-06-05 19:31 | EDPHYS ---
Physician Documentation [facility] Name: Juju Orozco Age: 52 yrs Sex: Female : 1970 Arrival Date: 06/05/2023 Time: 17:35 Bed 18 Private MD: ED Physician Oni Yanes HPI: 06/05 18:54 This 52 yrs old Female presents to ER via Ambulatory with complaints of Chest waylon Pain. 18:54 The patient or guardian reports chest pain that is located primarily in the anterior waylon chest wall, right. Onset: 1 week(s) ago. The pain does not radiate. Associated signs and symptoms: Pertinent positives: PLEURSY, LIKE A NEEDLE, WITH INSPIRATION. The chest pain is described as sharp. Duration: The patient or guardian reports multiple episodes, that wax and wane. Modifying factors: The symptoms are alleviated by remaining still, the symptoms are aggravated by deep breath. Severity of pain: At its worst the pain was mild in the emergency department the pain is unchanged. The patient has not experienced similar symptoms in the past. 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 - Social history:: Smoking status: Patient denies any tobacco usage or history of. Patient/guardian denies using alcohol. - Family history:: not pertinent. ROS: 18:54 Constitutional: Negative for fever, chills, and weight loss, Eyes: Negative for injury, waylon pain, redness, and discharge, ENT: Negative for injury, pain, and discharge, Neck: Negative for injury, pain, and swelling, Cardiovascular: Negative for chest pain, palpitations, and edema, Respiratory: Negative for shortness of breath, cough, wheezing, and pleuritic chest pain, Abdomen/GI: Negative for abdominal pain, nausea, vomiting, diarrhea, and constipation, Back: Negative for injury and pain, : Negative for injury, bleeding, discharge, and swelling, MS/Extremity: Negative for injury and deformity, Skin: Negative for injury, rash, and discoloration, Neuro: Negative for headache, weakness, numbness, tingling, and seizure, Psych: Negative for depression, anxiety, suicide ideation, homicidal ideation, and hallucinations, Allergy/Immunology: Negative for hives, rash, and allergies, Endocrine: Negative for neck swelling, polydipsia, polyuria, polyphagia, and marked weight changes, Hematologic/Lymphatic: Negative for swollen nodes, abnormal bleeding, and unusual bruising. 18:54 MS/extremity: Negative for acute changes. Exam: 18:54 Constitutional: This is a well developed, well nourished patient who is awake, alert, waylon and in no acute distress. Head/Face: Normocephalic, atraumatic. Eyes: Pupils equal round and reactive to light, extra-ocular motions intact. Lids and lashes normal. Conjunctiva and sclera are non-icteric and not injected. Cornea within normal limits. Periorbital areas with no swelling, redness, or edema. ENT: Nares patent. No nasal discharge, no septal abnormalities noted. Tympanic membranes are normal and external auditory canals are clear. Oropharynx with no redness, swelling, or masses, exudates, or evidence of obstruction, uvula midline. Mucous membranes moist. Neck: Trachea midline, no thyromegaly or masses palpated, and no cervical lymphadenopathy. Supple, full range of motion without nuchal rigidity, or vertebral point tenderness. No Meningismus. Chest/axilla: Normal chest wall appearance and motion. Nontender with no deformity. No lesions are appreciated. Cardiovascular: Regular rate and rhythm with a normal S1 and S2. No gallops, murmurs, or rubs. Normal PMI, no JVD. No pulse deficits. Respiratory: Lungs have equal breath sounds bilaterally, clear to auscultation and percussion. No rales, rhonchi or wheezes noted. No increased work of breathing, no retractions or nasal flaring. Abdomen/GI: Soft, non-tender, with normal bowel sounds. No distension or tympany. No guarding or rebound. No evidence of tenderness throughout. Female : Normal external genitalia. Skin: Warm, dry with normal turgor. Normal color with no rashes, no lesions, and no evidence of cellulitis. MS/ Extremity: Pulses equal, no cyanosis. Neurovascular intact. Full, normal range of motion. Neuro: Awake and alert, GCS 15, oriented to person, place, time, and situation. Cranial nerves II-XII grossly intact. Motor strength 5/5 in all extremities. Sensory grossly intact. Cerebellar exam normal. Normal gait. Psych: Awake, alert, with orientation to person, place and time. Behavior, mood, and affect are within normal limits. 18:54 ECG was reviewed by the Attending Physician. 19:27 ECG was reviewed by the Attending Physician. [facility] Vital Signs: 17:42 Pulse 62; Resp 18; Temp 98.3(O); Pulse Ox 100% on R/A; Weight 104.33 kg; Height 5 ft. 5 ld1 in. ; Pain 6/10; 18:26 BP 128 / 82; Pulse 63; Resp 21; Pulse Ox 100% on R/A; me1 20:24 BP 125 / 73; Pulse 62; Resp 16; Pulse Ox 100% on R/A; me1 17:42 Body Mass Index 38.27 (104.33 kg, 165.1 cm) ld1 17:42 Pain Scale: Adult ld1 MDM: 17:39 Patient medically screened. waylon 19:07 Differential diagnosis: abnormal EKG, acute myocardial infarction, acute pericarditis, waylon anxiety, coronary artery disease chest wall pain, cholecystitis, Cholelithiasis costochondritis, gastroesophageal reflux disease (GERD), hiatal hernia, mitral valve prolapse, pancreatitis, pleurisy, pneumonia, pulmonary embolus, stable angina, unstable angina. HEART Score: History: Slightly Suspicious (0), ECG: Normal (0), Age: > 45 and < 65 years (1), Risk Factors: 1 or 2 risk factors (1), [Hypertension] [Obesity]. The patient was given aspirin in the Emergency Department. Data reviewed: vital signs, nurses notes, lab test result(s), EKG, radiologic studies, CT scan, plain films. Consideration of Admission/Observation Escalation of care including admission/observation considered. I considered the following discharge prescriptions or medication management in the emergency department Medications were administered in the Emergency Department. See MAR. Independent interpretation of the following test(s) in the Emergency Department EKG: See my EKG interpretation above. Test considered but Not performed: Ultrasound NO 2D ECHO. 06/05 17:40 Order name: Basic Metabolic Panel; Complete Time: 18:27 [facility] 06/05 17:40 Order name: CBC with Diff; Complete Time: 18:27 06/05 17:40 Order name: LFT's; Complete Time: 18:27 06/05 17:40 Order name: Magnesium; Complete Time: 18:27 06/05 17:40 Order name: NT PRO-BNP; Complete Time: 18:27 06/05 17:40 Order name: PT-INR; Complete Time: 18:27 06/05 17:40 Order name: Troponin HS; Complete Time: 18:27 06/05 17:40 Order name: Lipase; Complete Time: 18:27 06/05 17:40 Order name: Urinalysis w/ reflexes; Complete Time: 18:34 06/05 18:35 Order name: Troponin HS: 8 PM 06/05 17:40 Order name: XRAY Chest (1 view); Complete Time: 18:27 06/05 18:35 Order name: CT Chest For PE Angio 06/05 17:40 Order name: EKG; Complete Time: 17:40 06/05 19:13 Order name: EKG; Complete Time: 19:13 06/05 17:40 Order name: Cardiac monitoring; Complete Time: 17:45 06/05 17:40 Order name: EKG - Nurse/Tech; Complete Time: 17:45 06/05 17:40 Order name: IV Saline Lock; Complete Time: 17:57 06/05 17:40 Order name: Labs collected and sent; Complete Time: 17:57 06/05 17:40 Order name: O2 Per Protocol; Complete Time: 17:45 06/05 17:40 Order name: O2 Sat Monitoring; Complete Time: 17:45 06/05 19:13 Order name: EKG - Nurse/Tech; Complete Time: 19:25 [facility] EC:54 Rate is 62 beats/min. Rhythm is regular. QRS [place] is Normal. OR interval is normal. QRS waylon interval is normal. QT interval is normal. No Q waves. T waves are Normal. No ST changes noted. Clinical impression: NSR w/ Non-specific ST/T Changes and No evidence of ischemia. Interpreted by me. Reviewed by me. 19:27 Rate is 61 beats/min. Rhythm is regular. QRS [place] is Normal. OR interval is normal. QRS waylon interval is normal. QT interval is normal. No Q waves. T waves are Normal. No ST changes noted. Clinical impression: Normal ECG and No evidence of ischemia. Interpreted by me. Reviewed by me. Administered Medications: 17:48 Drug: Aspirin PO Chewable Tablet 324 mg Route: PO; me1 19:11 Follow up: Response: No adverse reaction me1 17:56 Drug: NS 0.9% IV 1000 ml Route: IV; Rate: 125 ml/hr; Site: right antecubital; me1 20:26 Follow up: IV Status: Completed infusion me1 19:51 Drug: Ketorolac IVP 30 mg Route: IVP; Site: left antecubital; me1 20:18 Follow up: Response: No adverse reaction; Pain is decreased me1 Disposition Summary: 06/05/23 19:30 Discharge Ordered Location: Home waylon Problem: new waylon Symptoms: have improved waylon Condition: Stable waylon Diagnosis - Chest pain on breathing waylon - Chest pain, unspecified waylon - Obesity, unspecified waylon Followup: waylon - With: Private Physician - When: 2 - 3 days - Reason: Recheck today's complaints, Continuance of care, Re-evaluation by your physician Followup: waylon - With: - When: 2 - 3 days - Reason: Recheck today's complaints, Re-evaluation by your physician Discharge Instructions: - Discharge Summary Sheet waylon - Nonspecific Chest Pain, Adult waylon - Chest Wall Pain waylon - Costochondritis waylon - Chest Wall Pain, [id number] waylon - Nonspecific Chest Pain, Adult, [id number] waylon - Aspirin and Your Heart [facility] Forms: - Medication Reconciliation Form [facility] - Thank You Letter waylon - Antibiotic Education waylon - Prescription Opioid Use waylon - Patient Portal Instructions [facility] - Leadership Thank You Letter [facility] Prescriptions: - diclofenac sodium 50 mg Oral tablet, delayed release (enteric coated) - take 1 tablet by ORAL route 3 times per day; 30 tablet; Refills: 0, Product waylon Selection Permitted Signatures: Dispatcher [employer] Oni Velez MD MD cha Sims, Lauren RN RN ld1 Anju Zayas RN RN me1
--- NOTE | 2023-06-05 19:31 | ER ---
Nurse's Notes [facility] Name: Juju Orozco Age: 52 yrs Sex: Female : 1970 Arrival Date: 06/05/2023 Time: 17:35 Bed 18 Private MD: Diagnosis: Chest pain on breathing;Chest pain, unspecified;Obesity, unspecified Presentation: 06/05 17:42 Chief complaint: Patient states: Chest pain X 1 week. Coronavirus screen: At this time, ld1 the client does not indicate any symptoms associated with coronavirus-19. Ebola Screen: No symptoms or risks identified at this time. Initial Sepsis Screen: Does the patient meet any 2 criteria? No. Patient's initial sepsis screen is negative. Does the patient have a suspected source of infection? No. Patient's initial sepsis screen is negative. Risk Assessment: Do you want to hurt yourself or someone else? Patient reports no desire to harm self or others. Onset of symptoms was June 05, 2023. 17:42 Method Of Arrival: Ambulatory ld1 17:42 Acuity: TARIK 3 ld1 Triage Assessment: 17:42 General: Appears in no apparent distress. comfortable, Behavior is calm, cooperative, ld1 appropriate for age. Pain: Complains of pain in chest Pain does not radiate. Pain currently is 6 out of 10 on a pain scale. Quality of pain is described as stinging. EENT: No signs and/or symptoms were reported regarding the EENT system. Neuro: Level of Consciousness is awake, alert, obeys commands, Oriented to person, place, time, situation. Cardiovascular: Capillary refill < 3 seconds Patient's skin is warm and dry. Rhythm is sinus rhythm. Respiratory: Airway is patent Respiratory effort is even, unlabored. GI: Abdomen is round non-distended. : No signs and/or symptoms were reported regarding the genitourinary system. Derm: No signs and/or symptoms reported regarding the dermatologic system. Musculoskeletal: No signs and/or symptoms reported regarding the musculoskeletal system. 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 - Social history:: Smoking status: Patient denies any tobacco usage or history of. Patient/guardian denies using alcohol. - Family history:: not pertinent. Screenin:44 [facility] ED Fall Risk Assessment (Adult) History of falling in the last 3 months, ld1 including since admission No falls in past 3 months (0 pts). Abuse screen: Denies threats or abuse. Denies injuries from another. Nutritional screening: No deficits noted. Tuberculosis screening: No symptoms or risk factors identified. Assessment: 17:44 Reassessment: See triage assessment. Pain: Complains of pain in chest. ld1 Vital Signs: 17:42 Pulse 62; Resp 18; Temp 98.3(O); Pulse Ox 100% on R/A; Weight 104.33 kg; Height 5 ft. 5 ld1 in. ; Pain 6/10; 18:26 BP 128 / 82; Pulse 63; Resp 21; Pulse Ox 100% on R/A; me1 20:24 BP 125 / 73; Pulse 62; Resp 16; Pulse Ox 100% on R/A; me1 17:42 Body Mass Index 38.27 (104.33 kg, 165.1 cm) ld1 17:42 Pain Scale: Adult ld1 ED Course: 17:38 Patient arrived in ED. im 17:38 Oni Yanes MD is Attending Physician. [facility] 17:42 Arm band placed on right wrist. EKG completed in triage. Results shown to MD. ld1 17:43 Anju Zayas, QUOC is Primary Nurse. me1 17:43 Triage completed. ld1 17:44 Patient has correct armband on for positive identification. Placed in gown. Bed in low ld1 position. Call light in reach. Side rails up X2. chain sales representative on. Pulse ox on. NIBP on. Door closed. Noise minimized. Warm blanket given. 17:44 No provider procedures requiring assistance completed. Patient maintains SpO2 ld1 saturation greater than 95% on room air. 17:57 Inserted saline lock: 22 gauge in right antecubital area, using aseptic technique. me1 17:57 Lipase Sent. me1 17:57 Basic Metabolic Panel Sent. me1 17:57 CBC with Diff Sent. me1 17:57 LFT's Sent. me1 17:57 Magnesium Sent. me1 17:57 NT PRO-BNP Sent. me1 17:57 PT-INR Sent. me1 17:57 Troponin HS Sent. me1 18:01 XRAY Chest (1 view) In Process Unspecified. EDMS 18:26 Urinalysis w/ reflexes Sent. me1 19:01 CT Chest For PE Angio In Process Unspecified. EDMS 19:26 Bed in low position. Call light in reach. Side rails up X 1. Lights dimmed. Client wm placed on continuous cardiac and pulse oximetry monitoring. NIBP monitoring applied. chain sales representative on. 19:26 EKG done, by ED staff, reviewed by Oni Yanes MD. 19:30 Cristobal Tamez MD is Referral Physician. [facility] 19:51 Troponin HS: 8 PM Sent. me1 20:24 IV discontinued, intact, bleeding controlled, No redness/swelling at site. Pressure me1 dressing applied. Administered Medications: 17:48 Drug: Aspirin PO Chewable Tablet 324 mg Route: PO; me1 19:11 Follow up: Response: No adverse reaction me1 17:56 Drug: NS 0.9% IV 1000 ml Route: IV; Rate: 125 ml/hr; Site: right antecubital; me1 20:26 Follow up: IV Status: Completed infusion me1 19:51 Drug: Ketorolac IVP 30 mg Route: IVP; Site: left antecubital; me1 20:18 Follow up: Response: No adverse reaction; Pain is decreased me1 Medication: 17:44 VIS not applicable for this client. ld1 Outcome: 19:30 Discharge ordered by . [facility] 20:25 Discharged to home ambulatory. me1 20:25 Condition: stable 20:25 Discharge instructions given to patient, Instructed on discharge instructions, follow up and referral plans. medication usage, Demonstrated understanding of instructions, follow-up care, medications, Prescriptions given X 1. 20:25 Patient left the ED. me1 Signatures: Dispatcher [employer] Oni Velez MD MD cha Sims, Lauren, RN RN ld1 Tona Jules Dianna Spears Michelle, RN RN me1
[2023-06-05] MEDS ORDERED: KETOROLAC 30 MG/ML INJ ONE (19:58)
[2023-06-05 21:32] VITALS: TEMP 98.3; O2SAT 100
[2023-06-05 21:46] VITALS: BP 125/73
--- NOTE | 2023-06-07 19:07 | EKG ---
Test Date: 2023-06-05 Test Time: 19:17:03 Residence Counselor: MEASUREMENT RESULTS: Intervals: Rate: 61 NE: 164 QRSD: 84 QT: 450 QTc: 453 [place]: P: 58 NE: 164 QRS: 12 T: 55 INTERPRETIVE STATEMENTS: Normal sinus rhythm Normal ECG Compared to ECG 06/05/2023 17:45:08 No significant changes Electronically Signed On 06-07-23 19:05:10 CDT by Cristobal Tamez
--- NOTE | 2023-06-07 19:08 | EKG ---
Test Date: 2023-06-05 Test Time: 17:45:08 Tour Guide: HB MEASUREMENT RESULTS: Intervals: Rate: 62 MI: 158 QRSD: 88 QT: 444 QTc: 450 [place]: P: 53 MI: 158 QRS: 7 T: 48 INTERPRETIVE STATEMENTS: Normal sinus rhythm Normal ECG Compared to ECG 01/26/2023 22:02:18 T-wave abnormality no longer present Electronically Signed On 06-07-23 19:05:18 CDT by Cristobal Tamez
== END 2023-06-05 20:25 | disposition home or self-care (01) ==
LOC: ER 17:35
DX: R07.1 Chest pain on breathing (principal); E66.9 Obesity, unspecified; Z68.38 Body mass index [BMI] 38.0-38.9, adult; Z91.040 Latex allergy status; Z91.048 Other nonmedicinal substance allergy status
CPT/HCPCS: 96361; 93005 ×2; 85025; 81001; 80048; 36415; 83735; 85610; 80076; 84484 ×2; 83690; 83880; 71275; 71045; 96374; 99285; Q9967; J7030

== ENCOUNTER 2023-07-16 18:45 | Emergency (ER) | payer BC ==
--- OUTSIDE RECORDS SUMMARY | 2023-07-16 18:48 | XMS REPORT | Continuity of Care Document ---
:1970 Author Organization [facility] t Address [address] [facility] [address] [place] [id number] Care Team Providers Name Role Phone Sergio Cameron Primary Care Physician Doctor Unassigned, Carmichael Attending Clinician Unavailable Lab, Adc Fam Pob I Attending Clinician [...] Drug Active Univers ALLERGIE Class ity of [facility] Social History Social Habit Start Date Stop Date Quantity Comments Source Sexual orientation [facility] Exposure to 2021-03-26 2021-04-25 Yes [facility] SARS-CoV-2 (event) 00:00:00 09:55:00 Medica l Branch Sex Assigned At [birth year] Uni [facility] 00:00:00 00:00:00 [facility] Branch Smoking Status Start Date Stop Date Source Tobacco smoking consumption [facility] Branch Medications Ordered Filled Start Stop Current Ordering [...] 00 (three) Medical times Branch daily. ibuprofen 2015-0 Yes 800mg Take 1 Unive rs (MOTRIN) 7-02 tablet by ity of 800 mg 00:00: mouth [place] tablet 00 every 6 Medical (six) Branch hours as needed for Pain unrelieved by Tylenol. clindamycin 2016-0 Yes 300mg Take 1 Uni vers (CLEOCIN) 7-02 capsule by ity of 300 mg 00:00: mouth 3 [place] capsule 00 (three) Medical times Branch daily. ibuprofen 2015-0 Yes 800mg Take 1 Unive rs (MOTRIN) 7-02 tablet by ity of 800 mg 00:00: mouth [place] tablet 00 every 6 Medical (six) Branch hours as needed for Pain unrelieved by Tylenol. clindamycin 2015-0 Yes 300mg Take 1 Uni vers (CLEOCIN) 7-02 capsule by ity of 300 mg 00:00: mouth 3 [place] capsule 00 (three) Medical times Branch daily. Procedures This patient has no known procedures. Encounters Start End Encounter Admission Attending Care Care Encounter Source Date/Time Date/Time Type Type Clinicians Facility Department ID 2021-04-26 2021-04-26 Patient Doctor PRAVIN [id number] Univers 00:00:00 00:00:00 Secure Msg Unassigned, PRADEEP [id number] [place] [facility] [id number] Fortunato as [phone] [address] 2021-04-25 2021-04-25 Laboratory Lab, Adc Fam Pob I [facility] [id number] Univers 15:37:23 15:57:23 [facility] [id number] ity of [place] [id number] Fortunato as Professio [phone] Ia dical nal [address] 2021-04-25 2021-04-25 Outpatient R JIM [facility] [id number] Univers 15:40:00 15:40:00 HALEIGH velásquez [facility] 2021-01-01 2021-01-01 Laboratory Lab, Adc Fam Pob I [facility] [id number] Univers 15:35:50 15:55:50 Only Lizbeth, Peace [facility] [id number] ity [facility] [id number] Fortunato as Professio [phone] Ia [facility] [address] 2021-01-01 2021-01-01 Outpatient R [facility] [id number] [facility] 15:40:00 15:40:00 ity [facility] Results This patient has no known results.
[2023-07-16 20:12] LABS: Absolute Lymphocytes (CBC) 1.6 K/uL (0.7-4.9); Hematocrit 43.5 % (36.0-45.0); Lymphocytes % 24.7 % (15.3-44.8); MCV 88.2 fL (80-100); MPV 8.6 fL (7.6-11.3); Platelets 221 thou/uL (152-406); RBC Red Blood Cell Count 4.93 M/uL (3.86-4.86)
[2023-07-16 20:47] LABS: Magnesium 2.3 mg/dL (1.6-2.4); Potassium 3.2 mEq/L (3.5-5.1); Thyroid Stimulating Hormone 2.32 uIU/mL (0.358-3.740); Troponin High Sensitivity 4.2 pg/mL (<58.9)
--- NOTE | 2023-07-16 21:00 | RAD REPORT ---
EXAM DESCRIPTION: Charmaine Single View07/16/2023 8:31 pm CLINICAL HISTORY: Palpitation COMPARISON: May 2023 FINDINGS: The lungs appear clear of acute infiltrate. The heart is normal size IMPRESSION: No acute abnormalities displayed
[2023-07-16 21:31] LABS: Specific Gravity 1.008 (1.005-1.030)
[2023-07-16 21:32] LABS: Methadone ND (NEGATIVE)
[2023-07-16 21:33] LABS: Urine Bacteria <20 /HPF (<20); Urine Mucus Slight /HPF (None Seen); Urine RBC <5 /HPF (None Seen)
[2023-07-16 21:40] LABS: T3 Free 2.61 pg/mL (2.18-3.98)
[2023-07-16 21:44] LABS: Barbiturates NEGATIVE (NEGATIVE); Benzodiazepines POSITIVE (NEGATIVE); Cocaine NEGATIVE (NEGATIVE); METHAMPHETAM NEGATIVE (NEGATIVE); Opiates NEGATIVE (NEGATIVE); Phencyclidine NEGATIVE (NEGATIVE); THC Cannibis NEGATIVE (NEGATIVE)
--- NOTE | 2023-07-16 22:33 | RAD REPORT ---
EXAM DESCRIPTION: CT - Chest For Pe Angio - 07/16/2023 10:20 pm CLINICAL HISTORY: Chest pain and palpitations COMPARISON: May 2023 TECHNIQUE: Dynamically enhanced axial 3 mm thick images of the chest were obtained during administra tion of 100 mL Isovue 370 IV contrast. Coronal and oblique reconstruction images were generated and r eviewed. Exam utilizes a protocol for optimal evaluation of pulmonary arterial tree. Maximum intensity projections 3D imaging was utilized All CT scans are performed using dose optimization technique as appropriate and may include automated exposure control or mA/KV adjustment according to patient size. FINDINGS: Mildly suboptimal opacification of the pulmonary arteries. No gross pulmonary embolus seen A thoracic aortic aneurysm is not noted. A pleural effusion is not seen. A pericardial effusion is not seen. A lung consolidation is not present. IMPRESSION: No gross pulmonary embolus seen
[2023-07-16] MEDS ORDERED: ONDANSETRON 4 MG/2 ML VIAL ONE (22:50)
[2023-07-16] MEDS ORDERED: POTASSIUM 25 MEQ EFFERV TAB ONE (23:01)
--- NOTE | 2023-07-16 23:23 | EDPHYS ---
Physician Documentation [facility] Name: Juju Orozco Age: 52 yrs Sex: Female : 1970 Arrival Date: 07/16/2023 Time: 18:45 Bed 16 Private MD: Sergio Cameron ED Physician Oni Yanes HPI: 07/16 19:45 This 52 yrs old Female presents to ER via Ambulatory with complaints of cp Nausea, Palpitations. 19:45 The patient presents with a history of irregular heart beat. cp 19:45 Context: The symptoms occur at rest, without known cause. Onset: The symptoms/episode cp began/occurred yesterday. Duration: The patient or guardian reports multiple episodes, that are intermittent. The patient presents to the emergency department with nausea. Associated signs and symptoms: Pertinent negatives: abdominal pain, constipation, diarrhea, fever, vomiting, chest pain. Severity of symptoms: in the emergency department the symptoms are unchanged despite home interventions. Historical: - PMHx: 19:17 Anxiety; Hypertension; Hypothyroidism; Migraines; rv - PSHx: 19:17 section; rv - Immunization history:: Adult Immunizations up to date. - Social history:: Smoking status: Patient denies any tobacco usage or history of. ROS: 19:50 Constitutional: Negative for body aches, chills, fever, poor PO intake, cp 19:50 Eyes: Negative for injury, pain, redness, and discharge, cp 19:50 ENT: Negative for drainage from ear(s), ear pain, sore throat, difficulty swallowing, difficulty handling secretions, 19:50 Cardiovascular: Positive for palpitations, Negative for chest pain, edema, 19:50 Respiratory: Negative for cough, shortness of breath, wheezing, 19:50 Abdomen/GI: Positive for nausea, Negative for abdominal pain, vomiting, diarrhea, constipation, 19:50 Back: Negative for pain at rest, pain with movement, 19:50 Neuro: Negative for altered mental status, dizziness, headache, numbness, syncope, near syncope, weakness, 19:50 All other systems are negative, Exam: 19:27 ECG was reviewed by the Attending Physician. cp 19:55 Constitutional: The patient appears in no acute distress, alert, awake, cp non-diaphoretic, non-toxic, well developed, well nourished, obese, 19:55 Head/Face: Normocephalic, atraumatic. cp 19:55 Eyes: Periorbital structures: appear normal, Conjunctiva: normal, no exudate, no injection, Sclera: no appreciated abnormality, Lids and lashes: appear normal, bilaterally, 19:55 ENT: External ear(s): are unremarkable, Nose: is normal, Mouth: Lips: moist, Oral mucosa: pink and intact, moist, Posterior pharynx: is normal, airway is patent, no erythema, no exudate, 19:55 Chest/axilla: Inspection: normal, 19:55 Cardiovascular: Rate: normal, Rhythm: regular, Edema: is not appreciated, JVD: is not appreciated, 19:55 Respiratory: the patient does not display signs of respiratory distress, Respirations: normal, no use of accessory muscles, no retractions, labored breathing, is not present, Breath sounds: are clear throughout, no decreased breath sounds, no stridor, no wheezing, 19:55 Abdomen/GI: Inspection: abdomen appears normal, Palpation: abdomen is soft and non-tender, in all quadrants, 19:55 Back: pain, is absent, ROM is normal, 19:55 Neuro: Orientation: to person, place \T\ time. Mentation: is normal, Cerebellar function: is grossly normal, Motor: moves all fours, strength is normal, Sensation: is normal, Vital Signs: 19:15 BP 162 / 71; Pulse 74; Resp 17; Temp 97.5; Pulse Ox 98% on R/A; Weight 103.42 kg; rv Height 5 ft. 5 in. ; Pain 0/10; 21:16 BP 147 / 83; Pulse 65; Resp 15 S; Pulse Ox 99% on R/A; lg3 23:02 BP 181 / 88; Pulse 68; Resp 16 S; Pulse Ox 100% on R/A; lg3 07/17 00:20 BP 164 / 86; Pulse 62; Resp 16 S; Pulse Ox 100% on R/A; lg3 07/16 19:15 Body Mass Index 37.94 (103.42 kg, 165.1 cm) rv 07/16 19:15 Pain Scale: Adult rv MDM: 07/16 19:41 Patient medically screened. cp 22:00 Differential diagnosis: arrythmia, dehydration, stress disorder. cp 23:22 Data reviewed: vital signs, nurses notes, lab test result(s), EKG, radiologic studies, cp CT scan, plain films. 23:22 I considered the following discharge prescriptions or medication management in the emergency department Medications were administered in the Emergency Department. See MAR. Independent interpretation of the following test(s) in the Emergency Department EKG: See my EKG interpretation above. Care significantly affected by the following chronic conditions: Hypertension, Obesity. 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 Response to treatment: the patient's symptoms have markedly improved after treatment, and as a result, I will discharge patient. 07/16 19:52 Order name: Basic Metabolic Panel; Complete Time: 22:36 07/16 22:36 Interpretation: Normal except: K 3.2; GFR 73. 07/16 19:52 Order name: CBC with Diff; Complete Time: 21:22 07/16 21:23 Interpretation: Normal except: RBC 4.93. 07/16 19:52 Order name: D-Dimer; Complete Time: 21:22 07/16 21:23 Interpretation: Abnormal: D-DIMER 683. 07/16 19:52 Order name: Magnesium; Complete Time: 22:36 07/16 19:52 Order name: Troponin HS; Complete Time: 22:36 07/16 19:52 Order name: TSH; Complete Time: 22:36 07/16 19:52 Order name: T3 Free; Complete Time: 22:36 07/16 19:52 Order name: Urine Microscopic Only; Complete Time: 22:36 07/16 19:52 Order name: UDS; Complete Time: 22:36 07/16 19:52 Order name: PREGU; Complete Time: 22:36 07/16 19:52 Order name: XRAY Chest (1 view); Complete Time: 21:22 07/16 21:27 Interpretation: Report review. 07/16 21:32 Order name: CT Chest For PE Angio; Complete Time: 22:36 07/16 22:37 Interpretation: Report reviewed. 07/16 19:52 Order name: EKG; Complete Time: 19:53 07/16 19:52 Order name: Cardiac monitoring; Complete Time: 20:03 07/16 19:52 Order name: EKG - Nurse/Tech; Complete Time: 20:03 07/16 19:52 Order name: IV Saline Lock; Complete Time: 20:03 07/16 19:52 Order name: Labs collected and sent; Complete Time: 20:03 07/16 19:52 Order name: O2 Per Protocol; Complete Time: 20:10 07/16 19:52 Order name: O2 Sat Monitoring; Complete Time: 20:04 07/16 22:42 Order name: EKG - Nurse/Tech; Complete Time: 23:02 EC:27 Rate is 75 beats/min. Rhythm is regular. AL interval is normal. QRS interval is normal. cp QT interval is normal. Interpreted by me. Reviewed by me. Administered Medications: 22:45 Drug: Ondansetron IVP 4 mg IVP once; over 2 minutes Route: IVP; Site: right antecubital;lg3 07/17 00:20 Follow up: Response: No adverse reaction; Marked relief of symptoms [facility] 07/16 22:52 Drug: Potassium PO Effervescent Tablet 50 mEq PO once; dissolve in 4 ounces of water or lg3 juice Route: PO; 07/17 00:20 Follow up: Response: No adverse reaction lg3 Disposition Summary: 07/16/23 23:23 Discharge Ordered Notes: Location: Home cp Problem: new cp Symptoms: have improved cp Condition: Stable cp Diagnosis - Palpitations cp - Nausea cp Followup: cp - With: Sergio Cameron MD - When: 2 - 3 days - Reason: Recheck today's complaints Followup: cp - With: Cristobal Tamez MD - When: 2 - 3 days - Reason: palpitations Discharge Instructions: - Discharge Summary Sheet cp - Nausea, Adult cp - Palpitations cp - Aspirin and Your Heart cp - Ambulatory Cardiac Monitoring cp Forms: - Medication Reconciliation Form cp - Thank You Letter cp - Antibiotic Education cp - Prescription Opioid Use cp - Patient Portal Instructions cp - Leadership Thank You Letter cp Prescriptions: - Zofran 4 mg Oral Tablet - take 1 tablet ORAL route every 12 hours As needed; 20 tablet; Refills: 0, cp Product Selection Permitted Signatures: Dispatcher [employer] EDMS Oni Mann PA PA cp Vicente, Ronaldo RN RN rv Karen Gomez RN RN lg3 Corrections: (The following items were deleted from the chart) 07/16 19:18 19:17 Allergies: Latex; rv rv
--- NOTE | 2023-07-16 23:23 | ER ---
Nurse's Notes [facility] Name: Juju Orozco Age: 52 yrs Sex: Female : 1970 Arrival Date: 07/16/2023 Time: 18:45 Bed 16 Private MD: Sergio Cameron Diagnosis: Palpitations;Nausea Presentation: 07/16 19:15 Chief complaint: Patient states: PALPITATIONS ON AND OFF SINCE YESTERDAY, DENIES rv CP/SOB. WITH NAUSEA WO VOMITING. Coronavirus screen: At this time, the client does not indicate any symptoms associated with coronavirus-19. Ebola Screen: No symptoms or risks identified at this time. Initial Sepsis Screen: Does the patient meet any 2 criteria? No. Patient's initial sepsis screen is negative. Does the patient have a suspected source of infection? No. Patient's initial sepsis screen is negative. Risk Assessment: Do you want to hurt yourself or someone else? Patient reports no desire to harm self or others. Onset of symptoms was July 16, 2023. 19:15 Method Of Arrival: Ambulatory rv 19:15 Acuity: TARIK 2 rv Triage Assessment: 19:18 General: Appears comfortable, Behavior is calm, cooperative. Pain: Denies pain. Neuro: rv Level of Consciousness is awake, alert, obeys commands, Oriented to person, place, time, situation. Cardiovascular: Capillary refill < 3 seconds Patient's skin is warm and dry. Cardiovascular: Rhythm is sinus rhythm with PACs. Respiratory: Airway is patent Respiratory effort is even, unlabored. GI: Reports nausea, Patient currently denies abdominal pain. : No signs and/or symptoms were reported regarding the genitourinary system. Derm: No signs and/or symptoms reported regarding the dermatologic system. Historical: - PMHx: 19:17 Anxiety; Hypertension; Hypothyroidism; Migraines; rv - PSHx: 19:17 section; rv - Immunization history:: Adult Immunizations up to date. - Social history:: Smoking status: Patient denies any tobacco usage or history of. Screenin:11 [facility] ED Fall Risk Assessment (Adult) History of falling in the last 3 months, lg3 including since admission No falls in past 3 months (0 pts). Abuse screen: Denies threats or abuse. Denies injuries from another. Nutritional screening: No deficits noted. Tuberculosis screening: No symptoms or risk factors identified. Assessment: 20:11 General: Appears in no apparent distress. comfortable, Behavior is calm, cooperative. lg3 Pain: Denies pain. Neuro: No deficits noted. Rahman Agitation-Sedation Scale (RASS): 0 - Alert and Calm Level of Consciousness is awake, alert, obeys commands, Oriented to person, place, time, situation. Cardiovascular: No deficits noted. Reports palpitations, Denies chest pain. Respiratory: No deficits noted. Airway is patent Respiratory effort is even, unlabored, Respiratory pattern is regular, symmetrical. GI: Abdomen is round non-distended, obese, Reports nausea. : No deficits noted. No signs and/or symptoms were reported regarding the genitourinary system. EENT: No deficits noted. No signs and/or symptoms were reported regarding the EENT system. Derm: No deficits noted. No signs and/or symptoms reported regarding the dermatologic system. Skin is intact, is healthy with good turgor, Skin is dry, Skin is normal, Skin temperature is warm. Musculoskeletal: No deficits noted. No signs and/or symptoms reported regarding the musculoskeletal system. Circulation, motion, and sensation intact. Range of motion: intact in all extremities. 21:15 Reassessment: Patient appears in no apparent distress at this time. No changes from lg3 previously documented assessment. Patient and/or family updated on plan of care and expected duration. Pain level reassessed. Patient is alert, oriented x 3, equal unlabored respirations, skin warm/dry/pink. 22:34 GI: Reports nausea. lg3 23:02 Reassessment: Patient appears in no apparent distress at this time. No changes from lg3 previously documented assessment. Patient and/or family updated on plan of care and expected duration. Pain level reassessed. Patient is alert, oriented x 3, equal unlabored respirations, skin warm/dry/pink. Patient denies pain at this time. Vital Signs: 19:15 BP 162 / 71; Pulse 74; Resp 17; Temp 97.5; Pulse Ox 98% on R/A; Weight 103.42 kg; rv Height 5 ft. 5 in. ; Pain 0/10; 21:16 BP 147 / 83; Pulse 65; Resp 15 S; Pulse Ox 99% on R/A; lg3 23:02 BP 181 / 88; Pulse 68; Resp 16 S; Pulse Ox 100% on R/A; lg3 07/17 00:20 BP 164 / 86; Pulse 62; Resp 16 S; Pulse Ox 100% on R/A; lg3 07/16 19:15 Body Mass Index 37.94 (103.42 kg, 165.1 cm) rv 07/16 19:15 Pain Scale: Adult rv ED Course: 07/16 19:13 Patient arrived in ED. es 19:13 Sergio Cameron MD is Private Physician. es 19:17 Triage completed. rv 19:24 Arm band placed on right wrist. rv 19:41 Oni Mann PA is PHCP. cp 19:41 Oni Yanes MD is Attending Physician. cp 20:03 Inserted saline lock: 22 gauge in right antecubital area, using aseptic technique. [id number] Blood collected. 20:10 T3 Free Sent. lg3 20:10 TSH Sent. lg3 20:10 Basic Metabolic Panel Sent. lg3 20:10 CBC with Diff Sent. lg3 20:11 Patient has correct armband on for positive identification. Placed in gown. Bed in low lg3 position. Call light in reach. Side rails up X 1. Client placed on continuous cardiac and pulse oximetry monitoring. NIBP monitoring applied. monitoring coordinator on. Door closed. Noise minimized. Warm blanket given. Family accompanied patient. 20:11 D-Dimer Sent. lg3 20:11 Magnesium Sent. lg3 20:11 Troponin HS Sent. lg3 20:11 Patient maintains SpO2 saturation greater than 95% on room air. lg3 20:32 XRAY Chest (1 view) In Process Unspecified. EDMS 21:15 Karen Gomez, RN is Primary Nurse. lg3 21:15 PREGU Sent. lg3 21:15 UDS Sent. lg3 21:15 Urine Microscopic Only Sent. lg3 22:20 CT Chest For PE Angio In Process Unspecified. EDMS 23:22 Sergio Cameron MD is Referral Physician. cp 23:22 Cristobal Tamez MD is Referral Physician. 07/17 00:21 No provider procedures requiring assistance completed. IV discontinued, intact, lg3 bleeding controlled, No redness/swelling at site. Pressure dressing applied. Administered Medications: 07/16 22:45 Drug: Ondansetron IVP 4 mg IVP once; over 2 minutes Route: IVP; Site: right antecubital;lg3 07/17 00:20 Follow up: Response: No adverse reaction; Marked relief of symptoms lg3 07/16 22:52 Drug: Potassium PO Effervescent Tablet 50 mEq PO once; dissolve in 4 ounces of water or lg3 juice Route: PO; 07/17 00:20 Follow up: Response: No adverse reaction lg3 Medication: 00:21 VIS not applicable for this client. lg3 Outcome: 07/16 23:23 Discharge ordered by MD. olivo 07/17 00:21 Discharged to home ambulatory, lg3 Condition: stable Discharge instructions given to patient, Instructed on discharge instructions, follow up and referral plans. medication usage, Demonstrated understanding of instructions, follow-up care, medications, Prescriptions given X 1, 00:21 Patient left the ED. lg3 Signatures: Dispatcher [employer] EDShanel Peña Corey, PA PA cp Vicente, Ronaldo, RN RN rv Gibson, Lacie, RN RN lg3 Emely Goss jr Corrections: (The following items were deleted from the chart) 07/16 19:18 19:17 Allergies: Latex; rv rv
[2023-07-17 00:47] VITALS: TEMP 97.5
[2023-07-17 00:58] VITALS: O2SAT 100
[2023-07-17 00:59] VITALS: BP 164/86
--- NOTE | 2023-07-20 08:01 | EKG ---
Test Date: 2023-07-16 Test Time: 19:21:45 Local Government Legislator: RV MEASUREMENT RESULTS: Intervals: Rate: 75 AK: 154 QRSD: 78 QT: 396 QTc: 442 [place]: P: 80 AK: 154 QRS: 88 T: 23 INTERPRETIVE STATEMENTS: Sinus rhythm with blocked premature atrial complexes Low voltage QRS Nonspecific ST and T wave abnormality Abnormal ECG Compared to ECG 06/05/2023 19:17:03 Atrial premature complex(es) now present Low QRS voltage now present ST (T wave) deviation now present Electronically Signed On 07-20-23 07:53:55 CDT by Cristobal Tamez
--- NOTE | 2023-07-20 08:01 | EKG ---
Test Date: 2023-07-16 Test Time: 23:02:48 Industrial Relations Commissioner: RAZ MEASUREMENT RESULTS: Intervals: Rate: 64 CA: 158 QRSD: 84 QT: 438 QTc: 451 [place]: P: 76 CA: 158 QRS: 83 T: 84 INTERPRETIVE STATEMENTS: Sinus rhythm with premature atrial complexes Otherwise normal ECG Compared to ECG 07/16/2023 19:21:45 ST (T wave) deviation no longer present Electronically Signed On 07-20-23 07:53:48 CDT by Cristobal Tamez
== END 2023-07-17 00:21 | disposition home or self-care (01) ==
LOC: ER 18:45
DX: R00.2 Palpitations (principal); R11.0 Nausea
CPT/HCPCS: 93005 ×2; 85025; 80048; 36415; 83735; 81025; 85379; 84443; 81015; 84484; 84481; 80307; 71275; 71045; 96374; 99285; Q9967; J2405

== ENCOUNTER 2024-06-13 16:20 | Emergency (ER) | payer BC ==
--- OUTSIDE RECORDS SUMMARY | 2024-06-13 16:24 | XMS REPORT | Continuity of Care Document ---
Author Name Unknown Address [address] [place] [address] [facility] thconnect Address [address] [facility] [place] [address] Care Team Providers Care Service Station Manager Name Role Phone RakeshSergio Primary Care Physician [phone] [email or web address] Attending Clinician Unavaila ble Doctor Unassigned, [place] Attending Clinician U navailable Lab, Adc Fam Pob I Attending Clinician UnavailHaleigh Lanier Attending Clinician [phone] HALEIGH FERNANDEZ Attending Clinician UnavailPeace Evans Attending Clinician + [phone] [email or web address] Admitting Clinician Lakeshia shukla Payers Payer Name Policy Type Policy Number Effective Date Expirati on Date Source Allergies, Adverse Reactions, Alerts Allergy Name Allergy Type Status Severity Reaction(s) Onset Date Inactive Date Treating Clinician Comments Source NO KNOWN ALLERGIE S Drug Class Active [facility] Social History Social Habit Start Date Stop Date Quantity Comments Source Sexual orientation U [facility] Exposure to SARS-CoV-2 (event) 2021-03-26 00:00:00 2021-04-25 09:55:00 Yes [facility] Sex Assigned At 1970 00:00:00 1970 00:00:00 [facility] Smoking Status Start Date Stop Date Source Tobacco smoking consumption unknown [facility] Medications Ordered Medication Name Filled Medication Name Start Date Stop Date Current Medication? Ordering Clinician Indication Dosage Frequency Signature (SIG) Comments Components Source ibuprofen (MOTRIN) 800 mg tablet 03-21 00:00: 00 Yes 800mg Take 1 tablet by mouth every 6 (six) hours as needed for Pain unrelieved by Tylenol. [facility] clindamycin (CLEOCIN) 300 mg capsule 03-21 00:00: 00 Yes 300mg Take 1 capsule by mouth 3 (three) times daily. [facility] Encounters Start Date/Time End Date/Time Encounter Type Admission Type Attending Clinicians Care Facility Care Department Encounter ID Source 2023-07-18 00:00:00 2023-07-18 00:00:00 Outpatient [email or web address] [facility] [id number] [facility] 2021-04-26 00:00:00 2021-04-26 00:00:00 Patient Secure Msg Doctor Unassigned, [place] [facility] .114 [id number] [facility] 2021-04-25 15:37:23 2021-04-25 15:57:23 Laboratory Only [facility] [address] .114 [id number] [facility] 2021-04-25 15:40:00 2021-04-25 15:40:00 Outpatient [facility] [id number] [facility] 2021-01-01 15:35:50 2021-01-01 15:55:50 Laboratory Only Lab, Adc Peace [facility] [address] .114 [id number] [facility] 2021-01-01 15:40:00 2021-01-01 15:40:00 Outpatient R [facility] [id number] [facility]
[2024-06-13] MEDS ORDERED: KETOROLAC 30 MG/ML INJ ONE (17:16)
--- NOTE | 2024-06-13 17:55 | RAD REPORT ---
EXAMINATION: Ribs Right INDICATION: [facility] MAIN right lower anterior ribs CHEST PAIN Bed Name: 11 COMPARISON: Chest radiograph from the same day TECHNIQUE: Frontal and multiple oblique views of the right rib cage. FINDINGS: Included portions of the chest reveal clear lungs. There is no effusion or pneumothorax. Mediastinal contours are within normal limits. No displaced rib fracture is identified. No suspicious focal osseous lesion.. IMPRESSION: No acute fractures are identified radiographically..
--- NOTE | 2024-06-13 17:56 | RAD REPORT ---
EXAMINATION: ONE VIEW CHEST XR CLINICAL INDICATION: Female, 53 years old. [facility] MAIN CHEST PAIN Bed Name: 11 TECHNIQUE: Frontal chest projection is submitted. Examination is limited by patient positioning and t echnique. COMPARISON: 07/16/2023 FINDINGS: The lungs are well inflated and clear. No pneumothorax or sizable effusion. The heart is normal in s ize. IMPRESSION: No acute intrathoracic abnormalities.
--- NOTE | 2024-06-13 17:58 | ER ---
Nurse's Notes [facility] Name: Juju Orozco Age: 53 yrs Sex: Female : 1970 Arrival Date: 06/13/2024 Time: 16:20 Bed 11 Private MD: Diagnosis: Right lower rib pain Presentation: 06/13 16:33 Chief complaint: Patient states: had someone stand on my back to pop it and i felt ko1 something pop in my right ribs. Coronavirus screen: At this time, the client does not indicate any symptoms associated with coronavirus-19. Ebola Screen: No symptoms or risks identified at this time. Initial Sepsis Screen: Does the patient meet any 2 criteria? No. Patient's initial sepsis screen is negative. Does the patient have a suspected source of infection? No. Patient's initial sepsis screen is negative. Risk Assessment: Do you want to hurt yourself or someone else? Patient reports no desire to harm self or others. Onset of symptoms was June 13, 2024. 16:33 Method Of Arrival: Ambulatory ko1 16:33 Acuity: TARIK 4 ko1 Triage Assessment: 16:34 General: Appears uncomfortable, Behavior is calm, cooperative, appropriate for age. ko1 Pain: Complains of pain in right lower anterior ribs. HEALTH COORDINATOR: 16:34 LMP N/A - Post-menopause, Not ko1 Historical: - Allergies: 16:34 No Known Allergies; ko1 - Home Meds: 16:34 Lisinopril Oral as needed for hypertension [Active]; ko1 - PMHx: 16:34 Anxiety; Hypertension; Hypothyroidism; Migraines; ko1 - PSHx: 16:34 section; ko1 - Immunization history:: Adult Immunizations unknown. - Infectious Disease History:: Denies. - Social history:: Smoking status: Patient denies any tobacco usage or history of. Screenin:00 [facility] ED Fall Risk Assessment (Adult) History of falling in the last 3 months, ko1 including since admission No falls in past 3 months (0 pts) Confusion or Disorientation No (0 pts) Intoxicated or Sedated No (0 pts) Impaired Gait No (0 pts) Mobility Assist Device Used No (0 pt) Altered Elimination No (0 pt) Score/Fall Risk Level 0 - 2 = Low Risk Oriented to surroundings, Maintained a safe environment, Educated pt \T\ family on fall prevention, incl call for assistance when getting out of bed, Hourly rounding (assess needs \T\ fall precautionary measures) done. Abuse screen: Denies threats or abuse. Denies injuries from another. Nutritional screening: No deficits noted. Tuberculosis screening: No symptoms or risk factors identified. Assessment: 17:00 Musculoskeletal: Reports pain in ribs. ko1 Vital Signs: 16:33 BP 131 / 82; Pulse 67; Resp 16; Temp 97.1; Pulse Ox 100% ; ko1 17:00 BP 128 / 78; Pulse 72; Resp 14; Pulse Ox 99% ; ko1 ED Course: 16:23 Patient arrived in ED. ra3 16:23 Mavis Nelson FNP-C is PHCP. kb 16:23 Chema Beyer MD is Attending Physician. kb 16:34 Triage completed. ko1 16:34 Arm band placed on right wrist. Patient placed in waiting room, Patient notified of ko1 wait time. 17:00 Patient has correct armband on for positive identification. Call light in reach. ko1 Provided Education on: meds. Pulse ox on. NIBP on. Door closed. Noise minimized. Lights dimmed. 17:00 No provider procedures requiring assistance completed. Patient did not have IV access ko1 during this emergency room visit. 17:23 Sharona Felipe, RN is Primary Nurse. ko1 17:38 Chest Single View XRAY In Process Unspecified. EDMS 17:38 Ribs Right XRAY In Process Unspecified. EDMS Administered Medications: 17:23 Drug: Ketorolac IM 30 mg IM once Route: IM; Site: left deltoid; ko1 17:53 Follow up: Response: No adverse reaction ko1 Medication: 17:00 VIS not applicable for this client. ko1 Outcome: 17:58 Discharge ordered by . kb 18:08 Discharged to home ambulatory, ko1 18:08 Condition: stable 18:08 Discharge instructions given to patient, Instructed on discharge instructions, follow up and referral plans. medication usage, Demonstrated understanding of instructions, follow-up care, medications, Prescriptions given X 1, 18:08 Patient left the ED. ko1 Signatures: Dispatcher [employer] EDMS Mavis Nelson FNP-C FNP-Sharona Hoang, RN RN ko1 Zayas, Pretty ra3
--- NOTE | 2024-06-13 17:58 | EDPHYS ---
Physician Documentation [facility] Name: Juju Orozco Age: 53 yrs Sex: Female : 1970 Arrival Date: 06/13/2024 Time: 16:20 Bed 11 Private MD: ED Physician Chema Beyer HPI: 06/13 18:08 This 53 yrs old Female presents to ER via Ambulatory with complaints of kb ribcage inj. 18:08 Patient is a 53-year-old female who presents for right rib pain that started after kb someone walked on her back and she felt a pop in her right anterior ribs yesterday. States pain has not gotten any better so she came in to make sure she did not injure her ribs. Denies shortness of breath.. 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 - Infectious Disease History:: Denies. - Social history:: Smoking status: Patient denies any tobacco usage or history of. ROS: 18:07 Constitutional: As per HPI kb Exam: 18:07 Constitutional: This is a well developed, well nourished patient who is awake, alert, kb and in no acute distress. Head/Face: Normocephalic, atraumatic. ENT: Moist Mucous membranes Cardiovascular: Regular rate Respiratory: Respirations even and unlabored. No increased work of breathing. Talking in full sentences Abdomen/GI: Soft, non-tender. No distention Back: No spinal tenderness. No costovertebral tenderness. Full range of motion. Skin: Warm, dry with normal turgor. Normal color. MS/ Extremity: Pulses equal, no cyanosis. Neurovascular intact. Full, normal range of motion. Neuro: Awake and alert, GCS 15, oriented to person, place, time, and situation. Moves all extremities. Normal gait. 18:07 Chest/axilla: Inspection: normal, Palpation: tenderness, that totally reproduces the patient's complaints, Right anterior lower ribs just under right breast, Vital Signs: 16:33 BP 131 / 82; Pulse 67; Resp 16; Temp 97.1; Pulse Ox 100% ; ko1 17:00 BP 128 / 78; Pulse 72; Resp 14; Pulse Ox 99% ; ko1 MDM: 16:23 Patient medically screened. kb 18:08 Differential diagnosis: Strain, sprain, fracture, contusion. Data reviewed: vital kb signs, nurses notes. Counseling: I had a detailed discussion with the patient and/or guardian regarding the historical points, exam findings, and any diagnostic results supporting the discharge/admit diagnosis, radiology results, the need for outpatient follow up, a family practitioner, to return to the emergency department if symptoms worsen or persist or if there are any questions or concerns that arise at home. 06/13 16:57 Order name: Chest Single View XRAY; Complete Time: 17:57 kb 06/13 16:57 Order name: Ribs Right XRAY; Complete Time: 17:56 kb Administered Medications: 17:23 Drug: Ketorolac IM 30 mg IM once Route: IM; Site: left deltoid; ko1 17:53 Follow up: Response: No adverse reaction ko1 Disposition Summary: 06/13/24 17:58 Discharge Ordered Notes: Location: Home kb Condition: Stable kb Diagnosis - Right lower rib pain kb Followup: kb - With: Emergency Department - When: As needed - Reason: Worsening of condition Followup: kb - With: Private Physician - When: 2 - 3 days - Reason: Recheck today's complaints, Continuance of care, Re-evaluation by your physician Discharge Instructions: - Discharge Summary Sheet kb - Rib Contusion kb - Rib Fracture, [id number] kb Forms: - Medication Reconciliation Form kb - Antibiotic Education kb - Prescription Opioid Use kb - Patient Portal Instructions kb - Leadership Thank You Letter kb Prescriptions: - Diclofenac Sodium 75 mg Oral tablet, delayed release (enteric coated) - take 1 tablet ORAL route 2 times per day As needed; 30 tablet; Refills: 0, kb Product Selection Permitted Addendum: 06/15/2024 07:05 Co-signature as Attending Physician, Chema Beyer MD I reviewed the patient's care r n provided by the Advanced Practice Provider and agree with the diagnosis and treatment plan. Signatures: Dispatcher [employer] EDMavis Currie FNP-C [employer]-Ckb Chema Beyer MD MD rn Sharona Felipe RN RN ko1
[2024-06-13 18:45] VITALS: TEMP 97.1
[2024-06-13 18:46] VITALS: BP 128/78; O2SAT 99
== END 2024-06-13 18:08 | disposition home or self-care (01) ==
LOC: ER 16:20
DX: R07.81 Pleurodynia (principal); I10 Essential (primary) hypertension; F41.9 Anxiety disorder, unspecified
CPT/HCPCS: 71045; 96372; 99284